=== PATIENT | male | born 1990 | race Caucasian/White ===

== ENCOUNTER 2018-03-10 15:40 | Emergency (ER) | payer OTHER, SELFPAY ==
--- NOTE | 2018-03-10 16:03 | EDPHYS ---
Physician Documentation [facility] Name: Alberto Lynn Age: 28 yrs Sex: Male : 1990 Arrival Date: 03/10/2018 Time: 15:42 Bed 12 Private MD: None, None ED Physician Kayla Mcgregor HPI: 03/10 16:02 This 28 yrs old Male presents to ER via Ambulatory with complaints of pm1 Toothache. 16:02 The patient presents with pain. The problem is located in the lower right third molar. pm1 Onset: The symptoms/episode began/occurred this morning. Duration: The symptoms are continuous. Modifying factors: The symptoms are alleviated by nothing, the symptoms are aggravated by food. Associated signs and symptoms: Pertinent negatives: chills, dysphagia, fever, inability to eat, redness in area, swelling, vomiting. Severity of symptoms: in the emergency department the symptoms are actually worse. The patient has experienced similar episodes in the past, chronically, onset for the past 1.5 years but pain onset today. The patient has not recently seen a physician. Historical: - Allergies: 15:53 No Known Allergies; tw2 - Home Meds: 15:53 None [Active]; tw2 - PMHx: 15:53 None; tw2 - PSHx: 15:53 None; tw2 - Immunization history:: Adult Immunizations. - Social history:: Smoking status: Patient uses tobacco products, smokes one-half pack cigarettes per day, Patient uses street drugs, marijuana, "probably a week ago". - Ebola Screening: : Patient denies travel to an Ebola-affected area in the 21 days before illness onset. ROS: 16:02 Constitutional: Negative for fever, chills, and weight loss, Eyes: Negative for injury, pm1 pain, redness, and discharge. 16:02 Neck: Negative for injury, pain, and swelling, Cardiovascular: Negative for chest pain, palpitations, and edema, Respiratory: Negative for shortness of breath, cough, wheezing, and pleuritic chest pain, Abdomen/GI: Negative for abdominal pain, nausea, vomiting, diarrhea, and constipation, Back: Negative for injury and pain, : Negative for injury, bleeding, discharge, and swelling, MS/Extremity: Negative for injury and deformity, Skin: Negative for injury, rash, and discoloration, Neuro: Negative for headache, weakness, numbness, tingling, and seizure. 16:02 ENT: Positive for dental pain, Negative for ear pain, sore throat, difficulty swallowing, difficulty handling secretions, hoarseness. Exam: 16:02 Constitutional: This is a well developed, well nourished patient who is awake, alert, pm1 and in no acute distress. Head/Face: Normocephalic, atraumatic. Eyes: Pupils equal round and reactive to light, extra-ocular motions intact. Lids and lashes normal. Conjunctiva and sclera are non-icteric and not injected. Cornea within normal limits. Periorbital areas with no swelling, redness, or edema. 16:02 Neck: Trachea midline, no thyromegaly or masses palpated, and no cervical lymphadenopathy. Supple, full range of motion without nuchal rigidity, or vertebral point tenderness. No Meningismus. Chest/axilla: Normal chest wall appearance and motion. Nontender with no deformity. No lesions are appreciated. Cardiovascular: Regular rate and rhythm with a normal S1 and S2. No gallops, murmurs, or rubs. Normal PMI, no JVD. No pulse deficits. Respiratory: Lungs have equal breath sounds bilaterally, clear to auscultation and percussion. No rales, rhonchi or wheezes noted. No increased work of breathing, no retractions or nasal flaring. Abdomen/GI: Soft, non-tender, with normal bowel sounds. No distension or tympany. No guarding or rebound. No evidence of tenderness throughout. Back: No spinal tenderness. No costovertebral tenderness. Full range of motion. Skin: Warm, dry with normal turgor. Normal color with no rashes, no lesions, and no evidence of cellulitis. MS/ Extremity: Pulses equal, no cyanosis. Neurovascular intact. Full, normal range of motion. 16:02 ENT: External ear(s): are unremarkable, Ear canal(s): are normal, TM's: are normal, Nose: is normal, Mouth: is normal, no abscess, no drooling, (-) tongue elevation (-) trismus no ulcerations, no gum abnomalities, no lip abnormalities, no mucosal abnormalities, no tongue abnormalities, Posterior pharynx: is normal, airway is patent, no erythema, no exudate, no peritonsilar mass, no pooling of secretions, no swelling, normal tonsil apperance, normal sized tonsils, normal uvula appearance, normal uvula size, pooling of secretions, is not appreciated, Dental exam: dental caries, that is moderate, diffusely. 16:02 Neuro: Orientation: is normal, Motor: is normal, moves all fours, Gait: is steady, at a normal pace, without difficulty. Vital Signs: 15:53 BP 129 / 63; Pulse 82; Resp 18; Temp 97.3(TE); Pulse Ox 100% on R/A; Weight 98.88 kg tw2 (R); Height 5 ft. 11 in. (180.34 cm); Pain 10/10; 15:53 Body Mass Index 30.40 (98.88 kg, 180.34 cm) tw2 MDM: 15:58 Patient medically screened. pm1 16:02 Data reviewed: vital signs. Data interpreted: Pulse oximetry: on room air is 100 %. pm1 Interpretation: normal. Counseling: I had a detailed discussion with the patient and/or guardian regarding: the historical points, exam findings, and any diagnostic results supporting the discharge/admit diagnosis, the need for outpatient follow up, to return to the emergency department if symptoms worsen or persist or if there are any questions or concerns that arise at home. Administered Medications: 16:11 Drug: TORadol 60 mg Route: IM; Site: right gluteus; aa5 16:23 Follow up: Response: No adverse reaction; Pain is decreased tw2 Disposition: 18:24 Co-signature as Attending Physician, Kayla Mcgregor MD. I agree with the assessment ma2 and plan of care. Disposition: 03/10/18 16:02 Discharged to Home. Impression: Dental pain. - Condition is Stable. - Discharge Instructions: Dental Caries, Adult, Dental Pain. - Prescriptions for Amoxicillin 500 mg Oral Capsule - take 1 capsule by ORAL route every 8 hours for 10 days; 30 tablet. Tramadol 50 mg Oral Tablet - take 1 tablet by ORAL route every 8 hours as needed; 12 tablet. - Medication Reconciliation Form, Thank You Letter, Antibiotic Education, Prescription Opioid Use, Work release form form. - Follow up: Emergency Department; When: As needed; Reason: Worsening of condition. Follow up: Private Physician; When: 2 - 3 days; Reason: Recheck today's complaints, Continuance of care, Re-evaluation by your physician. - Problem is new. - Symptoms have improved. Signatures: Francheska Cohen, RN RN aa5 Enrique Winters NP INSPECTOR [employer]ISSIONS pm1 Grisel Calixto RN RN tw2 Kayla Mcgregor MD MD ma2 Corrections: (The following items were deleted from the chart) 16:23 16:02 03/10/2018 16:02 Discharged to Home. Impression: Dental pain. Condition is tw2 Stable. Forms are Work release form, Medication Reconciliation Form, Thank You Letter, Antibiotic Education, Prescription Opioid Use. Follow up: Emergency Department; When: As needed; Reason: Worsening of condition. Follow up: Private Physician; When: 2 - 3 days; Reason: Recheck today's complaints, Continuance of care, Re-evaluation by your physician. Problem is new. Symptoms have improved. pm1
--- NOTE | 2018-03-10 16:03 | ER ---
Nurse's Notes [facility] Name: Alberto Lynn Age: 28 yrs Sex: Male : 1990 Arrival Date: 03/10/2018 Time: 15:42 Bed 12 Private MD: None, None Diagnosis: Dental pain Presentation: 03/10 15:52 Presenting complaint: Patient states: my tooth has been hurting for half a year, it tw2 just got worse, lower right back tooth. Transition of care: patient was not received from another setting of care. Onset of symptoms was March 10, 2018. Risk Assessment: Do you want to hurt yourself or someone else? Patient reports no desire to harm self or others. Initial Sepsis Screen: Does the patient meet any 2 criteria? No. Patient's initial sepsis screen is negative. Does the patient have a suspected source of infection? No. Patient's initial sepsis screen is negative. Care prior to arrival: None. 15:52 Method Of Arrival: Ambulatory tw2 15:52 Acuity: ZAHIDA 4 tw2 Triage Assessment: 15:54 General: Appears in no apparent distress. Behavior is calm, cooperative, appropriate tw2 for age. Pain: Complains of pain in lower right third molar. EENT: Reports pain in lower right third molar. Historical: - Allergies: 15:53 No Known Allergies; tw2 - Home Meds: 15:53 None [Active]; tw2 - PMHx: 15:53 None; tw2 - PSHx: 15:53 None; tw2 - Immunization history:: Adult Immunizations. - Social history:: Smoking status: Patient uses tobacco products, smokes one-half pack cigarettes per day, Patient uses street drugs, marijuana, "probably a week ago". - Ebola Screening: : Patient denies travel to an Ebola-affected area in the 21 days before illness onset. Screenin:58 Abuse screen: Denies threats or abuse. Nutritional screening: No deficits noted. tw2 Tuberculosis screening: No symptoms or risk factors identified. Fall Risk None identified. Assessment: 15:57 General: Appears in no apparent distress. Behavior is calm, cooperative, appropriate tw2 for age. Pain: Complains of pain in mouth and lower right third molar. Neuro: Level of Consciousness is awake, alert, obeys commands, Oriented to person, place, time, situation. Cardiovascular: Capillary refill < 3 seconds Patient's skin is warm and dry. Respiratory: Airway is patent Respiratory effort is even, unlabored, Respiratory pattern is regular, symmetrical. GI: No signs and/or symptoms were reported involving the gastrointestinal system. : No signs and/or symptoms were reported regarding the genitourinary system. EENT: Reports pain since "for a while, i just havent had a chance to get it taken care of, its expensive, and now its broke off and you can see the gum through the tooth". Musculoskeletal: Range of motion: intact in all extremities. 16:23 Reassessment: Patient appears in no apparent distress at this time. Patient and/or tw2 family updated on plan of care and expected duration. Pain level reassessed. Patient is alert, oriented x 3, equal unlabored respirations, skin warm/dry/pink. Patient states feeling better. Vital Signs: 15:53 BP 129 / 63; Pulse 82; Resp 18; Temp 97.3(TE); Pulse Ox 100% on R/A; Weight 98.88 kg tw2 (R); Height 5 ft. 11 in. (180.34 cm); Pain 10/10; 15:53 Body Mass Index 30.40 (98.88 kg, 180.34 cm) tw2 ED Course: 15:42 Patient arrived in ED. dl4 15:43 None, None is Private Physician. dl4 15:53 Triage completed. tw2 15:53 Arm band placed on. tw2 15:57 Enrique Winters NP is PHCP. pm1 15:57 Kayla Mcgregor MD is Attending Physician. pm1 15:58 Bed in low position. Call light in reach. tw2 16:23 No provider procedures requiring assistance completed. Patient did not have IV access tw2 during this emergency room visit. Administered Medications: 16:11 Drug: TORadol 60 mg Route: IM; Site: right gluteus; aa5 16:23 Follow up: Response: No adverse reaction; Pain is decreased tw2 Outcome: 16:02 Discharge ordered by . pm1 16:23 Discharged to home ambulatory. tw2 16:23 Condition: stable 16:23 Discharge instructions given to patient, Instructed on discharge instructions, follow up and referral plans. no drinking with medication, no driving heavy equipment, medication usage, Demonstrated understanding of instructions, follow-up care, medications, Prescriptions given X 2. 16:23 Patient left the ED. tw2 Signatures: Francheska Cohen, RN RN aa5 Enrique Winters NP PLUMBING MECHANIC pm1 Grisel Calixto RN RN tw2 Arpit Monroe dl4 Corrections: (The following items were deleted from the chart) 16:51 15:56 Francheska Cohen RN is Primary Nurse. aa5 aa5
[2018-03-10] MEDS ORDERED: KETOROLAC 30 MG/ML INJ ONE (16:19)
== END 2018-03-10 16:23 | disposition home or self-care (01) ==
LOC: ER 15:40
DX: K08.89 Other specified disorders of teeth and supporting structures (principal); F17.210 Nicotine dependence, cigarettes, uncomplicated
CPT/HCPCS: 96372; 99283

== ENCOUNTER 2020-05-25 13:22 | Emergency (ER) | payer SELFPAY ==
[2020-05-25] MEDS ORDERED: LORAZEPAM 1 MG TABLET ONE (14:16)
[2020-05-25 14:39] LABS: Absolute Lymphocytes (CBC) 1.3 K/uL (0.7-4.9); Basophils % 0.4 % (0-1.3); Hematocrit 48.9 % (39.6-49.0); MPV 10.3 fL (7.6-11.3); RBC Red Blood Cell Count 5.38 M/uL (4.33-5.43)
[2020-05-25 14:54] LABS: BUN Blood Urea Nitrogen 19 mg/dL (7-18); Bicarbonate 27 mmol/L (21-32); Glucose Level 85 mg/dL (74-106); Sodium Level 140 mmol/L (136-145)
[2020-05-25 15:10] LABS: Potassium 3.9 mmol/L (3.5-5.1)
--- NOTE | 2020-05-25 15:15 | ER ---
Nurse's Notes [facility] Name: Alberto Lynn Age: 30 yrs Sex: Male : 1990 Arrival Date: 05/25/2020 Time: 13:30 Bed 26 Private MD: Diagnosis: Myalgia;Muscle spasm Presentation: 05/25 13:31 Chief complaint: Patient states: "feels like my body is tense. I just got out of shelter a ss month ago and just want to get checked out." Pt reports that this tense feeling he is having began 2 weeks ago. Coronavirus screen: Client denies travel out of the [place] in the last 14 days. Ebola Screen: Patient denies exposure to infectious person. Patient denies travel to an Ebola-affected area in the 21 days before illness onset. Initial Sepsis Screen: Does the patient meet any 2 criteria? No. Patient's initial sepsis screen is negative. Does the patient have a suspected source of infection? No. Patient's initial sepsis screen is negative. Risk Assessment: Do you want to hurt yourself or someone else? Patient reports no desire to harm self or others. Onset of symptoms was May 11, 2020. 13:31 Method Of Arrival: Ambulatory ss 13:31 Acuity: ZAHIDA 3 ss Historical: - Allergies: 13:34 No Known Allergies; ss - Home Meds: 13:34 None [Active]; ss - PMHx: 13:34 None; ss - PSHx: 13:34 None; ss - Immunization history:: Adult Immunizations up to date. - Social history:: Smoking status: Patient denies any tobacco usage or history of. Screenin:31 Abuse screen: Denies threats or abuse. Denies injuries from another. Nutritional ss screening: No deficits noted. Tuberculosis screening: Never had TB. Fall Risk None identified. Assessment: 13:31 General: Appears in no apparent distress. comfortable, Behavior is calm, cooperative. ss Pain: Complains of pain in back of neck Pain currently is 10 out of 10 on a pain scale. at worst was 10 out of 10 on a pain scale. Quality of pain is described as "tense feeling" Pain began 2 weeks ago Is continuous. Neuro: Level of Consciousness is awake, alert, obeys commands, Oriented to person, place, time, situation. Cardiovascular: Capillary refill < 3 seconds is brisk in bilateral fingers Patient's skin is warm and dry. Chest pain is denied. Respiratory: Airway is patent Trachea midline Respiratory effort is even, unlabored, Respiratory pattern is regular, symmetrical. GI: Patient currently denies abdominal pain, diarrhea, nausea, vomiting. : Denies burning with urination, urinary frequency. EENT: Nares are clear Oral mucosa is moist. Derm: Skin is intact, is healthy with good turgor, Skin is dry, Skin is pink, warm \\T\\ dry. normal. Musculoskeletal: Circulation, motion, and sensation intact. Range of motion: intact in all extremities, Swelling absent. 14:30 Reassessment: Patient appears in no apparent distress at this time. Patient and/or ss family updated on plan of care and expected duration. Pain level reassessed. Patient is alert, oriented x 3, equal unlabored respirations, skin warm/dry/pink. Vital Signs: 13:31 BP 132 / 76; Pulse 90; Resp 16; Temp 98.2(TE); Pulse Ox 99% on R/A; Weight 97.52 kg; ss Height 5 ft. 11 in. (180.34 cm); Pain 10/10; 15:15 BP 114 / 67; Pulse 84; Resp 18; Temp 98.0; Pulse Ox 98% on R/A; ss 13:31 Body Mass Index 29.99 (97.52 kg, 180.34 cm) ED Course: 13:30 Patient arrived in ED. ss 13:31 Patient has correct armband on for positive identification. Bed in low position. Call ss light in reach. 13:31 Initial lab(s) drawn, by ED staff, sent to lab. Patient maintains SpO2 saturation ss greater than 95% on room air. 13:33 Triage completed. ss 13:33 Kristy Dumont FNP-C is PHCP. kb 13:33 Sterling Parker MD is Attending Physician. kb 13:34 Arm band placed on right wrist. ss 13:49 Shannon Hairston, YI is Primary Nurse. ss 15:26 No provider procedures requiring assistance completed. Patient did not have IV access ss during this emergency room visit. Administered Medications: 13:44 CANCELLED (Duplicate Order): Ativan (LORazepam) 1 mg IVP once kb 14:04 Drug: Ativan (LORazepam) 1 mg Route: PO; ss 15:25 Follow up: Response: No adverse reaction; No change in condition ss 15:25 Drug: Flexeril (cyclobenzaprine) 10 mg Route: PO; ss 15:26 Follow up: Response: Medication administered at discharge. ss 15:25 Drug: Ibuprofen 800 mg Route: PO; ss 15:26 Follow up: Response: Medication administered at discharge. ss Outcome: 15:14 Discharge ordered by . kb 15:26 Discharged to home ambulatory. ss 15:26 Condition: good 15:26 Discharge instructions given to patient, Instructed on discharge instructions, follow up and referral plans. Demonstrated understanding of instructions, follow-up care, Prescriptions given X 1. 15:27 Patient left the ED. ss Signatures: Kristy Dumont, TRACEY-C TRACEY-Shannon Marquez, RN RN ss Corrections: (The following items were deleted from the chart) 15:27 15:26 Discharge instructions given to patient, Instructed on discharge instructions, ss follow up and referral plans. Demonstrated understanding of instructions, follow-up care, ss
--- NOTE | 2020-05-25 15:15 | EDPHYS ---
Physician Documentation [facility] Name: Alberto Lynn Age: 30 yrs Sex: Male : 1990 Arrival Date: 05/25/2020 Time: 13:30 Bed 26 Private MD: ED Physician Sterling Parker HPI: 05/25 15:22 This 30 yrs old Male presents to ER via Ambulatory with complaints of feels kb tense. 15:22 PT reports his body has felt tense for about 2 weeks. Reports muscle cramps as well. kb States he has a history of anxiety, but doesn't take anything for it. No injury or trauma. No fever, chills, cough, other symptoms to suggest illness. Onset: The symptoms/episode began/occurred 2 week(s) ago. Severity of symptoms: At their worst the symptoms were moderate in the emergency department the symptoms are unchanged. The patient has not experienced similar symptoms in the past. The patient has not recently seen a physician. Historical: - Allergies: 13:34 No Known Allergies; ss - Home Meds: 13:34 None [Active]; ss - PMHx: 13:34 None; ss - PSHx: 13:34 None; ss - Immunization history:: Adult Immunizations up to date. - Social history:: Smoking status: Patient denies any tobacco usage or history of. ROS: 15:21 Constitutional: Negative for fever, chills, and weight loss, Cardiovascular: Negative kb for chest pain, palpitations, and edema, Respiratory: Negative for shortness of breath, cough, wheezing, and pleuritic chest pain, Abdomen/GI: Negative for abdominal pain, nausea, vomiting, diarrhea, and constipation, Neuro: Negative for headache, weakness, numbness, tingling, and seizure. 15:21 MS/extremity: Positive for muscle cramps. Exam: 15:21 Constitutional: This is a well developed, well nourished patient who is awake, alert, kb and in no acute distress. Head/Face: Normocephalic, atraumatic. Cardiovascular: Regular rate and rhythm with a normal S1 and S2. No gallops, murmurs, or rubs. No pulse deficits. Respiratory: Respirations even and unlabored. No increased work of breathing, no retractions or nasal flaring. Skin: Warm, dry with normal turgor. Normal color. MS/ Extremity: Pulses equal, no cyanosis. Neurovascular intact. Full, normal range of motion. Neuro: Awake and alert, GCS 15, oriented to person, place, time, and situation. Moves all extremities. Normal gait. Vital Signs: 13:31 BP 132 / 76; Pulse 90; Resp 16; Temp 98.2(TE); Pulse Ox 99% on R/A; Weight 97.52 kg; ss Height 5 ft. 11 in. (180.34 cm); Pain 10/10; 15:15 BP 114 / 67; Pulse 84; Resp 18; Temp 98.0; Pulse Ox 98% on R/A; ss 13:31 Body Mass Index 29.99 (97.52 kg, 180.34 cm) ss MDM: 13:34 Patient medically screened. kb 15:12 Data reviewed: vital signs, nurses notes. Data interpreted: Pulse oximetry: on room air kb is 99 %. Interpretation: normal. Counseling: I had a detailed discussion with the patient and/or guardian regarding: the historical points, exam findings, and any diagnostic results supporting the discharge/admit diagnosis, lab results, the need for outpatient follow up, a family practitioner, to return to the emergency department if symptoms worsen or persist or if there are any questions or concerns that arise at home. 05/25 13:44 Order name: CBC with Diff; Complete Time: 14:49 kb 05/25 13:44 Order name: Basic Metabolic Panel; Complete Time: 15:12 kb Administered Medications: 13:44 CANCELLED (Duplicate Order): Ativan (LORazepam) 1 mg IVP once kb 14:04 Drug: Ativan (LORazepam) 1 mg Route: PO; ss 15:25 Follow up: Response: No adverse reaction; No change in condition ss 15:25 Drug: Flexeril (cyclobenzaprine) 10 mg Route: PO; ss 15:26 Follow up: Response: Medication administered at discharge. ss 15:25 Drug: Ibuprofen 800 mg Route: PO; ss 15:26 Follow up: Response: Medication administered at discharge. Disposition: 05/26 06:56 Co-signature as Attending Physician, Sterling Parker MD I agree with the assessment and kdr plan of care. Disposition: 05/25/20 15:14 Discharged to Home. Impression: Myalgia, Muscle spasm. - Condition is Stable. - Discharge Instructions: Muscle Cramps and Spasms. - Prescriptions for Cyclobenzaprine 10 mg Oral Tablet - take 1 tablet by ORAL route every 8 hours As needed; 21 tablet. - Medication Reconciliation Form, Thank You Letter, Antibiotic Education, Prescription Opioid Use form. - Follow up: Emergency Department; When: As needed; Reason: Worsening of condition. Follow up: Private Physician; When: 2 - 3 days; Reason: Recheck today's complaints, Continuance of care, Re-evaluation by your physician. Signatures: Dispatcher [employer] EDMS Kristy Dumont, JIG BORE OPERATOR-C JIG BORE OPERATOR-Ckb Sterling Parker MD MD kdr Smirch, Shelby, RN RN ss Corrections: (The following items were deleted from the chart) 05/25 13:44 13:44 IV Saline Lock ordered. kb kb 13:44 13:44 Ativan (LORazepam) 1 mg IVP once ordered. kb kb 15:27 15:14 05/25/2020 15:14 Discharged to Home. Impression: Myalgia; Muscle spasm. Condition ss is Stable. Forms are Medication Reconciliation Form, Thank You Letter, Antibiotic Education, Prescription Opioid Use. Follow up: Emergency Department; When: As needed; Reason: Worsening of condition. Follow up: Private Physician; When: 2 - 3 days; Reason: Recheck today's complaints, Continuance of care, Re-evaluation by your physician. kb
[2020-05-25 15:32] VITALS: BP 132/76; TEMP 98.2; O2SAT 99
[2020-05-25] MEDS ORDERED: CYCLOBENZAPRINE 10 MG TAB ONE (15:41)
[2020-05-25] MEDS ORDERED: IBUPROFEN 400 MG TAB ONE (15:42)
== END 2020-05-25 15:27 | disposition home or self-care (01) ==
LOC: ER 13:22
DX: M62.838 Other muscle spasm (principal)
CPT/HCPCS: 36415; 80048; 85025; 99284

== ENCOUNTER 2022-03-18 20:19 | Emergency (ER) | payer SELFPAY ==
[2022-03-18 20:47] LABS: Hematocrit 40.2 % (39.6-49.0); Lymphocytes % 14.5 % (15.3-44.8); MCV 90.1 fL (80-100); MPV 8.9 fL (7.6-11.3); RBC Red Blood Cell Count 4.46 M/uL (4.33-5.43)
[2022-03-18 21:02] LABS: Albumin 3.7 g/dL (3.4-5.0); Bilirubin Total 0.3 mg/dL (0.2-1.0); Potassium 4.2 mmol/L (3.5-5.1); Protein, Total 6.6 g/dL (6.4-8.2)
[2022-03-18 21:08] LABS: Urine Blood Negative (Negative); Urine Glucose Negative (Negative); Urine Protein Negative (Negative); Urine Specific Gravity <=1.005 (1.005-1.030)
--- NOTE | 2022-03-18 22:17 | EDPHYS ---
Physician Documentation [facility] Name: Alberto Lynn Age: 32 yrs Sex: Male : 1990 Arrival Date: 03/18/2022 Time: 20:21 Bed 11 Private MD: ED Physician Curtis Caban HPI: 03/18 22:41 This 32 yrs old Male presents to ER via EMS with complaints of weakness, dizziness. kb 22:41 The patient presents with dizziness, generalized weakness. Onset: The symptoms/episode kb began/occurred 1 year(s) ago, and became worse 1 week(s) ago. Context: occurred while the patient was walking. Modifying factors: The symptoms are alleviated by nothing, the symptoms are aggravated by nothing. Associated signs and symptoms: The patient has no apparent associated signs or symptoms. Severity of symptoms: At their worst the symptoms were moderate in the emergency department the symptoms are unchanged. Patient's baseline: Neuro: alert and fully oriented, Motor: no deficits, Ambulation: walks without assistance, Speech: normal. The patient has not experienced similar symptoms in the past. The patient has not recently seen a physician. Pt reports weakness and dizziness for a year that has been worse this week. EMS reports BGL in the 40s upon their arrival to pt, was given oral glucose in route. . Historical: - Allergies: 20:25 No Known Allergies; as6 - Home Meds: 20:25 None [Active]; as6 - PMHx: 20:25 None; as6 - PSHx: 20:25 None; as6 - Immunization history:: Client reports having NOT received the Covid vaccine. Flu vaccine is not up to date. - Social history:: Smoking status: Patient reports the use of cigarette tobacco products, smokes one-half pack cigarettes per day. ROS: 22:41 Constitutional: Negative for fever, chills, and weight loss. kb 22:41 Neuro: Positive for dizziness, weakness. 22:41 All other systems are negative. Exam: 22:41 Constitutional: This is a well developed, well nourished patient who is awake, alert, kb and in no acute distress. Head/Face: Normocephalic, atraumatic. Eyes: Pupils equal round and reactive to light, extra-ocular motions intact. Lids and lashes normal. Conjunctiva and sclera are non-icteric and not injected. Cornea within normal limits. Periorbital areas with no swelling, redness, or edema. ENT: Moist Mucous membranes Cardiovascular: Regular rate and rhythm with a normal S1 and S2. No gallops, murmurs, or rubs. No pulse deficits. Respiratory: Respirations even and unlabored. No increased work of breathing. Talking in full sentences Abdomen/GI: Soft, non-tender. No distention Skin: Warm, dry with normal turgor. Normal color. MS/ Extremity: Pulses equal, no cyanosis. Neurovascular intact. Full, normal range of motion. Neuro: Awake and alert, GCS 15, oriented to person, place, time, and situation. Moves all extremities. Normal gait. Vital Signs: 20:24 BP 115 / 65; Pulse 68; Resp 17 S; Temp 98.6(O); Pulse Ox 97% on R/A; Weight 94.35 kg as6 (R); Height 5 ft. 11 in. (180.34 cm) (R); Pain 8/10; 21:08 BP 100 / 47 Supine; Pulse 73; mb9 21:10 BP 106 / 81 Sitting; Pulse 58; mb9 21:13 BP 105 / 73 Standing; Pulse 85; mb9 22:07 BP 110 / 76; Pulse 80; Resp 16; Pulse Ox 100% on R/A; mb9 20:24 Body Mass Index 29.01 (94.35 kg, 180.34 cm) as6 MDM: 20:22 Patient medically screened. kb 22:40 Differential diagnosis: generalized weakness, idiopathic dizziness, near-syncope, kb vertigo, hypoglycemia. Data reviewed: vital signs, nurses notes. Historians other than the Patient: EMS: [facility]. Counseling: I had a detailed discussion with the patient and/or guardian regarding: the historical points, exam findings, and any diagnostic results supporting the discharge/admit diagnosis, lab results, the need for outpatient follow up, a family practitioner, to return to the emergency department if symptoms worsen or persist or if there are any questions or concerns that arise at home. 03/18 20:22 Order name: CBC with Diff kb 03/18 20:22 Order name: CMP kb 03/18 20:37 Order name: Glucose, Ancillary Testing; Complete Time: 20:38 EDMS 03/18 20:52 Order name: CBC with Automated Diff; Complete Time: 20:57 EDMS 03/18 21:02 Order name: Comprehensive Metabolic Panel; Complete Time: 21:08 EDMS 03/18 21:09 Order name: Urine Dipstick-Ancillary; Complete Time: 21:11 EDMS 03/18 20:22 Order name: IV Start; Complete Time: 20:33 kb 03/18 20:22 Order name: Urine Dipstick-Ancillary (obtain specimen); Complete Time: 21:07 kb 03/18 20:22 Order name: Orthostatics; Complete Time: 21:13 kb Administered Medications: No medications were administered Disposition Summary: 03/18/22 22:16 Discharge Ordered Location: Home kb Condition: Stable kb Diagnosis - Weakness kb - Hypoglycemia, unspecified kb Followup: kb - With: Emergency Department - When: As needed - Reason: Worsening of condition Followup: kb - With: Private Physician - When: 2 - 3 days - Reason: Recheck today's complaints, Continuance of care, Re-evaluation by your physician Discharge Instructions: - Discharge Summary Sheet kb - Weakness, [id number] kb - Hypoglycemia, [id number] kb Forms: - Medication Reconciliation Form kb - Thank You Letter kb - Antibiotic Education kb - Prescription Opioid Use kb Signatures: Dispatcher [employer] [facility] Kristy Dumont, MEDICAL COMMUNICATION SPECIALIST-C TRACEY-Percy Calderon, RN RN as6
--- NOTE | 2022-03-18 22:17 | ER ---
Nurse's Notes [facility] Name: Alberto Lynn Age: 32 yrs Sex: Male : 1990 Arrival Date: 03/18/2022 Time: 20:21 Bed 11 Private MD: Diagnosis: Weakness;Hypoglycemia, unspecified Presentation: 03/18 20:25 Chief complaint: EMS states: called out for dizziness and weakness. pt reports that for as6 the past week he has been feeling weak and dizzy off an on but today he was walking and got really dizzy. initial BGL for EMS was 45. they gave oral glucose and it raised to 92. Coronavirus screen: At this time, the client does not indicate any symptoms associated with coronavirus-19. Ebola Screen: No symptoms or risks identified at this time. Initial Sepsis Screen: Does the patient meet any 2 criteria? No. Patient's initial sepsis screen is negative. Does the patient have a suspected source of infection? No. Patient's initial sepsis screen is negative. Risk Assessment: Do you want to hurt yourself or someone else? Patient reports no desire to harm self or others. Onset of symptoms was March 18, 2022. 20:25 Acuity: ZAHIDA 3 as6 20:25 Method Of Arrival: EMS: [facility] as6 Triage Assessment: 20:27 General: Appears in no apparent distress. Behavior is calm, cooperative. Pain: as6 Complains of pain in left leg. Historical: - Allergies: 20:25 No Known Allergies; as6 - Home Meds: 20:25 None [Active]; as6 - PMHx: 20:25 None; as6 - PSHx: 20:25 None; as6 - Immunization history:: Client reports having NOT received the Covid vaccine. Flu vaccine is not up to date. - Social history:: Smoking status: Patient reports the use of cigarette tobacco products, smokes one-half pack cigarettes per day. Screenin:28 [facility] ED Fall Risk Assessment (Adult) Score/Fall Risk Level 0 - 2 = Low Risk. Abuse as6 screen: Denies threats or abuse. Denies injuries from another. Nutritional screening: No deficits noted. Tuberculosis screening: No symptoms or risk factors identified. Assessment: 20:34 General: Appears in no apparent distress. Behavior is calm, cooperative, agitated. mb9 Pain: Complains of pain in left leg. Neuro: Sol Agitation-Sedation Scale (RASS): 0 - Alert and Calm Level of Consciousness is awake, alert, obeys commands, Oriented to person, place, time, situation, Appropriate for age. Cardiovascular: Heart tones S1 S2 present Rhythm is regular. Respiratory: Airway is patent Respiratory effort is even, unlabored, Respiratory pattern is regular, symmetrical, Breath sounds are clear bilaterally. GI: Abdomen is flat, distended, Bowel sounds present X 4 quads. Abd is soft and non tender X 4 quads. Reports intolerance of food, nausea. : No signs and/or symptoms were reported regarding the genitourinary system. EENT: No signs and/or symptoms were reported regarding the EENT system. Derm: Skin is pink, warm \T\ dry. Musculoskeletal: Range of motion: intact in all extremities. 21:45 Reassessment: No changes from previously documented assessment. Patient and/or family mb9 updated on plan of care and expected duration. Pain level reassessed. Patient is alert, oriented x 3, equal unlabored respirations, skin warm/dry/pink. Patient states feeling better. Patient states symptoms have improved. Vital Signs: 20:24 BP 115 / 65; Pulse 68; Resp 17 S; Temp 98.6(O); Pulse Ox 97% on R/A; Weight 94.35 kg as6 (R); Height 5 ft. 11 in. (180.34 cm) (R); Pain 8/10; 21:08 BP 100 / 47 Supine; Pulse 73; mb9 21:10 BP 106 / 81 Sitting; Pulse 58; mb9 21:13 BP 105 / 73 Standing; Pulse 85; mb9 22:07 BP 110 / 76; Pulse 80; Resp 16; Pulse Ox 100% on R/A; mb9 20:24 Body Mass Index 29.01 (94.35 kg, 180.34 cm) as6 ED Course: 20:21 Patient arrived in ED. kb 20:22 Kristy Dumont FNP-C [facility] kb 20:22 Curtis Caban MD is Attending Physician. kb 20:22 Aydee Liang RN is Primary Nurse. mb9 20:24 Arm band placed on. as6 20:27 Triage completed. as6 20:27 Placed in gown. Bed in low position. Call light in reach. Side rails up X2. Client as6 placed on continuous cardiac and pulse oximetry monitoring. NIBP monitoring applied. 20:33 CMP Sent. mb9 20:33 CBC with Diff Sent. mb9 22:07 No provider procedures requiring assistance completed. mb9 22:26 IV discontinued, intact, bleeding controlled, No redness/swelling at site. Pressure mb9 dressing applied. Administered Medications: No medications were administered Medication: 20:28 VIS not applicable for this client. as6 Outcome: 22:16 Discharge ordered by . kb 22:26 Discharged to home ambulatory. mb9 22:26 Condition: stable 22:26 Discharge instructions given to patient, Instructed on discharge instructions, follow up and referral plans. Demonstrated understanding of instructions, follow-up care. 22:27 Patient left the ED. mb9 Signatures: Kristy Dumont, PUMP ERECTOR HELPER-C PUMP ERECTOR HELPER-Percy Calderon, RN RN as6 Aydee Liang RN RN mb9
[2022-03-18 23:21] VITALS: TEMP 98.6
[2022-03-18 23:25] VITALS: BP 110/76; O2SAT 100
== END 2022-03-18 22:27 | disposition home or self-care (01) ==
LOC: ER 20:19
DX: R53.1 Weakness (principal); E16.2 Hypoglycemia, unspecified
CPT/HCPCS: 36415; 80053; 81003; 82947; 85025; 99283

== ENCOUNTER 2022-04-05 11:27 | Emergency (ER) | payer SELFPAY ==
[2022-04-05] MEDS ORDERED: ONDANSETRON 4 MG/2 ML VIAL ONE (11:45)
[2022-04-05] MEDS ORDERED: NA CHLORIDE 0.9% 1,000 ML ONE (11:45)
[2022-04-05 11:57] LABS: Hematocrit 43.2 % (39.6-49.0); Lymphocytes % 20.3 % (15.3-44.8); MCV 89.7 fL (80-100); MPV 8.7 fL (7.6-11.3); RBC Red Blood Cell Count 4.82 M/uL (4.33-5.43)
[2022-04-05 12:14] LABS: Albumin 3.6 g/dL (3.4-5.0); Bilirubin Total 0.4 mg/dL (0.2-1.0); Protein, Total 7.3 g/dL (6.4-8.2)
[2022-04-05 12:20] LABS: Urine Blood Negative (Negative); Urine Glucose Negative (Negative); Urine Protein Negative (Negative); Urine Specific Gravity 1.015 (1.005-1.030)
[2022-04-05 12:32] LABS: SARS-COV-2 RT PCR NEGATIVE (NEGATIVE)
[2022-04-05 12:38] LABS: Barbiturates NEGATIVE (NEGATIVE); Benzodiazepines NEGATIVE (NEGATIVE); Cocaine NEGATIVE (NEGATIVE); METHAMPHETAM NEGATIVE (NEGATIVE); Methadone NEGATIVE (NEGATIVE); Opiates NEGATIVE (NEGATIVE); Phencyclidine NEGATIVE (NEGATIVE); THC Cannibis NEGATIVE (NEGATIVE)
--- NOTE | 2022-04-05 13:11 | EDPHYS ---
Physician Documentation [facility] Name: Alberto Lynn Age: 32 yrs Sex: Male : 1990 Arrival Date: 04/05/2022 Time: 11:31 Bed 20 Private MD: ED Physician Curtis Caban HPI: 04/05 13:07 This 32 yrs old Male presents to ER via EMS with complaints of nausea, vomiting, kb headache, weakness. 13:07 The patient presents to the emergency department with nausea, vomiting. Onset: The kb symptoms/episode began/occurred yesterday. Possible causes: unknown. The symptoms are aggravated by nothing. The symptoms are alleviated by nothing. Associated signs and symptoms: Pertinent positives: nausea, vomiting. Severity of symptoms: At their worst the symptoms were mild moderate in the emergency department the symptoms are unchanged. The patient has not experienced similar symptoms in the past. The patient has not recently seen a physician. Historical: - Allergies: 11:34 No Known Allergies; mb9 - Home Meds: 11:34 Aspirin Oral [Active]; mb9 - PMHx: 11:34 None; mb9 - PSHx: 11:34 None; mb9 - Immunization history:: Adult Immunizations not up to date. - Social history:: Smoking status: Patient reports the use of cigarette tobacco products, smokes one-half pack cigarettes per day. ROS: 13:08 Constitutional: Negative for fever, chills, and weight loss. kb 13:08 Abdomen/GI: Positive for nausea and vomiting, abdominal cramps, Negative for abdominal pain, diarrhea, constipation. 13:08 Neuro: Positive for headache, weakness. 13:08 All other systems are negative. Exam: 13:08 Constitutional: This is a well developed, well nourished patient who is awake, alert, kb and in no acute distress. Head/Face: Normocephalic, atraumatic. ENT: Moist Mucous membranes Cardiovascular: Regular rate and rhythm with a normal S1 and S2. No gallops, murmurs, or rubs. No pulse deficits. Respiratory: Respirations even and unlabored. No increased work of breathing. Talking in full sentences Abdomen/GI: Soft, non-tender. No distention Skin: Warm, dry with normal turgor. Normal color. MS/ Extremity: Pulses equal, no cyanosis. Neurovascular intact. Full, normal range of motion. Neuro: Awake and alert, GCS 15, oriented to person, place, time, and situation. Moves all extremities. Normal gait. Vital Signs: 11:33 BP 116 / 76; Pulse 72; Resp 18; Temp 98.4(O); Pulse Ox 100% on R/A; Weight 92.08 kg; mb9 Height 5 ft. 11 in. (180.34 cm); Pain 0/10; 13:01 BP 111 / 69; Pulse 61; Resp 16; Pulse Ox 99% on R/A; mb9 11:33 Body Mass Index 28.31 (92.08 kg, 180.34 cm) mb9 MDM: 11:31 Patient medically screened. kb 13:08 Differential diagnosis: gastritis, viral gastroenteritis. Data reviewed: vital signs, kb nurses notes. Test considered but Not performed: CT: CT abdomen pelvis considered but patient has no abdominal tenderness, no abdominal pain reported, white blood cell count normal.. Historians other than the Patient: EMS: [facility]. Counseling: I had a detailed discussion with the patient and/or guardian regarding: the historical points, exam findings, and any diagnostic results supporting the discharge/admit diagnosis, lab results, the need for outpatient follow up, a family practitioner, to return to the emergency department if symptoms worsen or persist or if there are any questions or concerns that arise at home. ED course: Patient is a 32-year-old male who presents for nausea, vomiting, weakness and headaches that started at 0 100 yesterday morning. Denies fever or abdominal pain. Normal physical exam, no abdominal tenderness. Serum labs, flu and COVID test, urinalysis and UDS all normal. Patient feeling better after treatment. Educated on plan for outpatient follow-up. Patient in agreement with plan of care. Patient is nontoxic in appearance and tolerating p.o. intake.. 04/05 11:34 Order name: CBC with Diff; Complete Time: 12:09 kb 04/05 11:34 Order name: CMP; Complete Time: 12:17 kb 04/05 11:34 Order name: Lipase; Complete Time: 12:17 kb 04/05 11:34 Order name: UDS; Complete Time: 12:45 kb 04/05 11:34 Order name: COVID-19/FLU A+B; Complete Time: 12:33 kb 04/05 12:20 Order name: Urine Dipstick-Ancillary; Complete Time: 12:30 EDMS 04/05 11:34 Order name: IV Saline Lock; Complete Time: 11:49 kb 04/05 11:34 Order name: Labs collected and sent; Complete Time: 11:49 kb 04/05 11:34 Order name: Urine Dipstick-Ancillary (obtain specimen); Complete Time: 12:54 kb 04/05 12:49 Order name: PO challenge; Complete Time: 13:06 kb Administered Medications: 11:49 Drug: NS 0.9% 1000 ml Route: IV; Rate: 1 bolus; Site: right wrist; mb9 11:50 Drug: Zofran (Ondansetron) 4 mg Route: IVP; Site: right wrist; mb9 13:06 Follow up: Response: No adverse reaction mb9 Disposition Summary: 04/05/22 13:11 Discharge Ordered Location: Home kb Condition: Stable kb Diagnosis - Nausea with vomiting, unspecified kb Followup: kb - With: Emergency Department - When: As needed - Reason: Worsening of condition Followup: kb - With: Private Physician - When: 2 - 3 days - Reason: Recheck today's complaints, Continuance of care, Re-evaluation by your physician Discharge Instructions: - Discharge Summary Sheet kb - Nausea and Vomiting, Adult, [id number] kb Forms: - Medication Reconciliation Form kb - Thank You Letter kb - Antibiotic Education kb - Prescription Opioid Use kb Prescriptions: - ondansetron 4 mg Oral - take 1 tablet by SUBLINGUAL route every 8 hours As needed; 15 tablet; Refills: kb 0, Product Selection Permitted Signatures: Dispatcher [employer] Kristy Garcia, BRAEDEN DOLANP-Aydee Baker, RN RN mb9
--- NOTE | 2022-04-05 13:11 | ER ---
Nurse's Notes [facility] Name: Alberto Lynn Age: 32 yrs Sex: Male : 1990 Arrival Date: 04/05/2022 Time: 11:31 Bed 20 Private MD: Diagnosis: Nausea with vomiting, unspecified Presentation: 04/05 11:33 Chief complaint: EMS states: "pt complains of N/V and weakness since yesterday. Pt mb9 currently has headache". Coronavirus screen: Vaccine status: Patient reports being unvaccinated. Ebola Screen: No symptoms or risks identified at this time. Initial Sepsis Screen: Does the patient meet any 2 criteria? No. Patient's initial sepsis screen is negative. Does the patient have a suspected source of infection? No. Patient's initial sepsis screen is negative. Risk Assessment: Do you want to hurt yourself or someone else? Patient reports no desire to harm self or others. Onset of symptoms was April 05, 2022. 11:33 Acuity: ZAHIDA 3 mb9 11:33 Method Of Arrival: EMS: [facility] mb9 Triage Assessment: 11:35 General: Appears in no apparent distress. Behavior is calm, cooperative. Pain: mb9 Complains of pain in head Pain currently is 0 out of 10 on a pain scale. Quality of pain is described as aching, Pain began suddenly. EENT: No signs and/or symptoms were reported regarding the EENT system. Neuro: Sol Agitation-Sedation Scale (RASS): 0 - Alert and Calm Level of Consciousness is awake, alert, obeys commands, Oriented to person, place, time, situation, Appropriate for age Reports headache. Cardiovascular: Capillary refill < 3 seconds is brisk Rhythm is regular. Respiratory: Airway is patent Respiratory effort is even, unlabored, Respiratory pattern is regular, symmetrical. GI: Abdomen is flat, non-distended, Bowel sounds present X 4 quads. Abd is soft and non tender X 4 quads. Reports nausea, vomiting, since yesterday. : No signs and/or symptoms were reported regarding the genitourinary system. Derm: Skin is pink, warm \\T\\ dry. Musculoskeletal: Range of motion: intact in all extremities. Historical: - Allergies: 11:34 No Known Allergies; mb9 - Home Meds: 11:34 Aspirin Oral [Active]; mb9 - PMHx: 11:34 None; mb9 - PSHx: 11:34 None; mb9 - Immunization history:: Adult Immunizations not up to date. - Social history:: Smoking status: Patient reports the use of cigarette tobacco products, smokes one-half pack cigarettes per day. Screenin:36 [facility] ED Fall Risk Assessment (Adult) History of falling in the last 3 months, mb9 including since admission No falls in past 3 months (0 pts) Confusion or Disorientation No (0 pts) Intoxicated or Sedated No (0 pts) Impaired Gait No (0 pts) Mobility Assist Device Used No (0 pt) Altered Elimination No (0 pt) Score/Fall Risk Level 0 - 2 = Low Risk Oriented to surroundings, Maintained a safe environment, Educated pt \\T\\ family on fall prevention, incl call for assistance when getting out of bed. Abuse screen: Denies threats or abuse. Nutritional screening: No deficits noted. Tuberculosis screening: No symptoms or risk factors identified. Assessment: 11:36 Reassessment: see triage assessment. mb9 13:06 Reassessment: No changes from previously documented assessment. Patient and/or family mb9 updated on plan of care and expected duration. Pain level reassessed. Patient is alert, oriented x 3, equal unlabored respirations, skin warm/dry/pink. Vital Signs: 11:33 BP 116 / 76; Pulse 72; Resp 18; Temp 98.4(O); Pulse Ox 100% on R/A; Weight 92.08 kg; mb9 Height 5 ft. 11 in. (180.34 cm); Pain 0/10; 13:01 BP 111 / 69; Pulse 61; Resp 16; Pulse Ox 99% on R/A; mb9 11:33 Body Mass Index 28.31 (92.08 kg, 180.34 cm) mb9 ED Course: 11:31 Patient arrived in ED. eb 11:31 Kristy Dumont FNP-C [facility]. kb 11:31 Curtis Caban MD is Attending Physician. kb 11:33 Aydee Liang RN is Primary Nurse. mb9 11:34 Triage completed. mb9 11:34 Arm band placed on. mb9 11:36 Placed in gown. Bed in low position. Call light in reach. Side rails up X 1. Client mb9 placed on continuous cardiac and pulse oximetry monitoring. NIBP monitoring applied. coal inspector on. 11:45 Inserted saline lock: 20 gauge in right wrist, using aseptic technique. mb9 11:49 COVID-19/FLU A+B Sent. mb9 13:22 No provider procedures requiring assistance completed. IV discontinued, intact, mb9 bleeding controlled, No redness/swelling at site. Pressure dressing applied. Administered Medications: 11:49 Drug: NS 0.9% 1000 ml Route: IV; Rate: 1 bolus; Site: right wrist; mb9 11:50 Drug: Zofran (Ondansetron) 4 mg Route: IVP; Site: right wrist; mb9 13:06 Follow up: Response: No adverse reaction mb9 Medication: 11:36 VIS not applicable for this client. mb9 Outcome: 13:11 Discharge ordered by . kb 13:32 Discharged to home ambulatory. mb9 13:32 Condition: stable 13:32 Discharge instructions given to patient, Instructed on discharge instructions, follow up and referral plans. Demonstrated understanding of instructions, follow-up care, medications, Prescriptions given X 1. 13:32 Patient left the ED. mb9 Signatures: Kristy Dumont, SALES REPRESENTATIVE [employer]-C SALES REPRESENTATIVE [employer]-Cleopatra Euceda Mary Beth, RN RN mb9
[2022-04-05 13:41] VITALS: TEMP 98.4
[2022-04-05 13:42] VITALS: BP 111/69; O2SAT 99
== END 2022-04-05 13:32 | disposition home or self-care (01) ==
LOC: ER 11:27
DX: R11.2 Nausea with vomiting, unspecified (principal); Z20.822 Contact with and (suspected) exposure to COVID-19
CPT/HCPCS: 0240U; 36415; 80053; 80307; 81003; 83690; 85025; 96374; 99284; J2405; J7030

== ENCOUNTER 2022-04-05 16:33 | Emergency (ER) | payer SELFPAY ==
[2022-04-05] MEDS ORDERED: ONDANSETRON 4 MG (ODT) TAB ONE (16:41)
--- NOTE | 2022-04-05 17:34 | EDPHYS ---
Physician Documentation [facility] Name: Alberto Lynn Age: 32 yrs Sex: Male : 1990 Arrival Date: 04/05/2022 Time: 16:35 Bed IW3 Private MD: ED Physician Curtis Caban HPI: 04/05 17:33 This 32 yrs old Male presents to ER via EMS with complaints of Nausea. kb 17:33 The patient presents to the emergency department with nausea. Onset: The kb symptoms/episode began/occurred just prior to arrival. Possible causes: unknown. The symptoms are aggravated by nothing. The symptoms are alleviated by nothing. Associated signs and symptoms: Pertinent positives: nausea. Severity of symptoms: At their worst the symptoms were mild in the emergency department the symptoms are unchanged. The patient has not experienced similar symptoms in the past. The patient has been recently seen at the [facility] Emergency Department, today, by me, for similar complaints labs were performed, was given IV fluids, was given a prescription for an antiemetic. Historical: - Allergies: 16:38 No Known Allergies; iw - Home Meds: 16:38 None [Active]; iw - PMHx: 16:38 None; iw - PSHx: 16:38 None; iw ROS: 17:25 Constitutional: Negative for fever, chills, and weight loss. kb 17:25 Abdomen/GI: Positive for nausea, Negative for abdominal pain. 17:25 All other systems are negative. Exam: 17:25 Constitutional: This is a well developed, well nourished patient who is awake, alert, kb and in no acute distress. Head/Face: Normocephalic, atraumatic. ENT: Moist Mucous membranes Cardiovascular: Regular rate and rhythm with a normal S1 and S2. No gallops, murmurs, or rubs. No pulse deficits. Respiratory: Respirations even and unlabored. No increased work of breathing. Talking in full sentences Abdomen/GI: Soft, non-tender. No distention Skin: Warm, dry with normal turgor. Normal color. MS/ Extremity: Pulses equal, no cyanosis. Neurovascular intact. Full, normal range of motion. Neuro: Awake and alert, GCS 15, oriented to person, place, time, and situation. Moves all extremities. Normal gait. Vital Signs: 16:38 BP 152 / 81; Pulse 90; Resp 16; Temp 98.8; Pulse Ox 100% on R/A; Pain 10/10; iw MDM: 16:35 Patient medically screened. kb 17:30 Differential diagnosis: gastritis, viral gastroenteritis. Data reviewed: vital signs, kb nurses notes. Historians other than the Patient: EMS: [facility]. Counseling: I had a detailed discussion with the patient and/or guardian regarding: the historical points, exam findings, and any diagnostic results supporting the discharge/admit diagnosis, the need for outpatient follow up, a family practitioner, to return to the emergency department if symptoms worsen or persist or if there are any questions or concerns that arise at home. ED course: Patient is a 32-year-old male who presents for nausea that started just prior to arrival. Patient was seen earlier today by the for similar complaints, serum labs done and normal, patient was given fluids and Zofran. Patient tolerated po fluids prior to discharge. States he got home and walked over to his neighbor's house got nauseous again so he called 911. Patient has not filled the prescription for Zofran that was written for him. Zofran given p.o. Patient tolerating p.o. intake. Educated to fill prescription and take as needed. Patient continues to deny abdominal pain.. 04/05 16:38 Order name: PO challenge; Complete Time: 17:51 kb Administered Medications: 16:41 Drug: Zofran (Ondansetron) 4 mg Route: PO; iw 17:56 Follow up: Response: Nausea is decreased jl7 Disposition Summary: 04/05/22 17:34 Discharge Ordered Location: Home kb Condition: Stable kb Diagnosis - Nausea kb Followup: kb - With: Emergency Department - When: As needed - Reason: Worsening of condition Followup: kb - With: Private Physician - When: 2 - 3 days - Reason: Recheck today's complaints, Continuance of care, Re-evaluation by your physician Discharge Instructions: - Discharge Summary Sheet kb - Nausea, Adult, [id number] kb Forms: - Medication Reconciliation Form kb - Thank You Letter kb - Antibiotic Education kb - Prescription Opioid Use kb Signatures: Kristy Dumont FNP-C FNP-Roz Whelan RN RN iw Adrien Perez RN jl7
--- NOTE | 2022-04-05 17:34 | ER ---
Nurse's Notes [facility] Name: Alberto Lynn Age: 32 yrs Sex: Male : 1990 Arrival Date: 04/05/2022 Time: 16:35 Bed IW3 Private MD: Diagnosis: Nausea Presentation: 04/05 16:38 Acuity: ZAHIDA 4 iw 16:39 Chief complaint: Patient states: pt was just d/c from ER earlier today, pt was walking iw to neighbor's house and started feeling nausea , then he states he has left leg pain that caused the nausea. Coronavirus screen: At this time, the client does not indicate any symptoms associated with coronavirus-19. Ebola Screen: Patient negative for fever greater than or equal to 101.5 degrees Fahrenheit, and additional compatible Ebola Virus Disease symptoms Patient denies exposure to infectious person. Patient denies travel to an Ebola-affected area in the 21 days before illness onset. No symptoms or risks identified at this time. 16:39 Method Of Arrival: EMS: [facility] iw Historical: - Allergies: 16:38 No Known Allergies; iw - Home Meds: 16:38 None [Active]; iw - PMHx: 16:38 None; iw - PSHx: 16:38 None; iw Screenin:[address] [facility] ED Fall Risk Assessment (Adult) Score/Fall Risk Level 0 - 2 = Low Risk. Abuse iw screen: Denies threats or abuse. Denies injuries from another. Nutritional screening: No deficits noted. Tuberculosis screening: No symptoms or risk factors identified. Assessment: 16:41 General: Appears in no apparent distress. Behavior is calm, cooperative. Pain: iw Complains of pain in left leg. Neuro: Level of Consciousness is awake, alert, obeys commands, Oriented to person, place, time, situation. Cardiovascular: Patient's skin is warm and dry. Respiratory: Respiratory effort is even, unlabored, Respiratory pattern is regular, symmetrical. GI: Abdomen is flat, non-distended, Reports nausea. Derm: Skin is intact, is healthy with good turgor. Musculoskeletal: Range of motion: intact in all extremities. Vital Signs: 16:38 BP 152 / 81; Pulse 90; Resp 16; Temp 98.8; Pulse Ox 100% on R/A; Pain 10/10; iw ED Course: 16:35 Patient arrived in ED. iw 16:35 Kristy Dumont FNP-C [facility]. kb 16:35 Curtis Caban MD is Attending Physician. kb 16:38 Triage completed. iw 16:41 Arm band placed on. iw 16:42 No provider procedures requiring assistance completed. Patient did not have IV access iw during this emergency room visit. 17:58 Patient has correct armband on for positive identification. jl7 Administered Medications: 16:41 Drug: Zofran (Ondansetron) 4 mg Route: PO; iw 17:56 Follow up: Response: Nausea is decreased jl7 Outcome: 17:34 Discharge ordered by . kb 17:58 Discharged to home ambulatory. jl7 17:58 Condition: stable 17:58 Discharge instructions given to patient, Instructed on discharge instructions, follow up and referral plans. Demonstrated understanding of instructions, follow-up care. 17:58 Patient left the ED. jl7 Signatures: Kristy Dumont FNP-C FNP-Roz Whelan, RN YI Adrien Perez RN RN jl7
[2022-04-05 19:08] VITALS: BP 152/81; TEMP 98.8; O2SAT 100
== END 2022-04-05 17:58 | disposition home or self-care (01) ==
LOC: ER 16:33
DX: R11.0 Nausea (principal)
CPT/HCPCS: 99283; Q0162

== ENCOUNTER 2022-04-05 22:39 | Emergency (ER) | payer SELFPAY ==
--- NOTE | 2022-04-05 22:54 | EDPHYS ---
Physician Documentation [facility] Name: Alberto Lynn Age: 32 yrs Sex: Male : 1990 Arrival Date: 04/05/2022 Time: 22:41 Bed 2 Private MD: ED Physician Daniel Mckeon HPI: 04/05 22:46 This 32 yrs old Male presents to ER via EMS with complaints of left leg pain. bs3 22:46 The patient presents with an injury, pain, that is acute, tenderness. The complaints bs3 affect the left quadriceps, left knee and left ag. Context: the patient is not able to bear weight, the patient is able to ambulate, Problem is a result from a previous injury: No. Modifying factors: The symptoms are alleviated by OTC meds, the symptoms are aggravated by. 32yo m seen previosuly for nausea presents with left leg pain, he notes taking aspirin with some relief. Initially stated it was his anterior upper leg, then changed story and said it was his lower leg. Denies numbness, tingling, weakness, denies trauma. No pain in his joints, no rash, no fever, chills, no swelling or anything else bothering him. He notes it was hurting when he was walking and therefore he came in. Denies abdominal pain. . Historical: - Allergies: 22:43 No Known Allergies; kd3 - Immunization history:: Adult Immunizations up to date. - Social history:: Smoking status: Patient reports the use of cigarette tobacco products, denies chronic smoking, but will smoke occasionally. ROS: 22:51 Constitutional: Negative for fever, chills bs3 22:51 All other systems are negative. Exam: 22:51 Constitutional: This is a well developed, well nourished patient who is awake, alert, bs3 and in no acute distress. Head/Face: Normocephalic, atraumatic. Eyes: Pupils equal round and reactive to light, extra-ocular motions intact. Lids and lashes normal. ENT: mmm, no posterior phyarngeal erythema Chest/axilla: Normal chest wall appearance and motion. Nontender with no deformity. No lesions are appreciated. Cardiovascular: Regular rate and rhythm with a normal S1 and S2. symmetric pulses in upper extremities Respiratory: Lungs have equal breath sounds bilaterally, clear to auscultation, no respiratory distress Abdomen/GI: Soft, non-tender, no rebound or guarding Skin: Warm, dry with normal turgor. Normal color with no rashes, no lesions, and no evidence of cellulitis. MS/ Extremity: Pulses equal, no cyanosis. Neurovascular intact. Full, normal range of motion., normal rom of b/l lower extremities, no calf tenderness, no rash, no pain to palpation over the muscles. No weakness. Neuro: Awake and alert, GCS 15, oriented to person, place, time, and situation. Cranial nerves II-XII grossly intact. Motor strength 5/5 in all extremities. Sensory grossly intact. Vital Signs: 22:41 BP 107 / 84; Pulse 77; Resp 19; Temp 98.5(O); Pulse Ox 100% ; Weight 92.08 kg; Height 5 kd3 ft. 11 in. (180.34 cm); 22:41 Body Mass Index 28.31 (92.08 kg, 180.34 cm) kd3 MDM: 22:44 Patient medically screened. bs3 22:51 Differential diagnosis: dislocation, closed fracture, contusion, abrasion, tendonitis, bs3 possible dvt, rhabdo. Data reviewed: vital signs, nurses notes. ED course: considered US for dvt but no calf pain, no swelling or risk factors, considered labs for rhabdo, but no current pain at rest, no changes in urine, no weakness. Doubt compartment syndrome. Likely msk pain, advised nsaid and rest. Administered Medications: 23:03 Drug: Ketorolac 30 mg Route: IM; Site: left deltoid; kd3 23:06 Follow up: Response: No adverse reaction kd3 Disposition Summary: 04/05/22 22:53 Discharge Ordered Location: Home bs3 Problem: new bs3 Symptoms: are resolved bs3 Condition: Stable bs3 Diagnosis - Pain in left leg bs3 Followup: bs3 - With: Private Physician - When: As needed - Reason: Re-evaluation by your physician Discharge Instructions: - Discharge Summary Sheet bs3 - Musculoskeletal Pain bs3 Forms: - Medication Reconciliation Form bs3 - Thank You Letter bs3 - Antibiotic Education bs3 - Prescription Opioid Use bs3 Prescriptions: - Meloxicam - take 7.5 milligram by ORAL route once daily for 7 days; 7 tablet; Refills: 0, bs3 Product Selection Permitted Signatures: Armando, Marcelina, YI RN kd3 Daniel Mcekon MD MD bs3
--- NOTE | 2022-04-05 22:54 | ER ---
Nurse's Notes [facility] Name: Alberto Lynn Age: 32 yrs Sex: Male : 1990 Arrival Date: 04/05/2022 Time: 22:41 Bed 2 Private MD: Diagnosis: Pain in left leg Presentation: 04/05 22:41 Chief complaint: EMS states: He is complaining of left leg pain that starts in the calf kd3 and radiates up the leg to the thigh. Pt states that it could be an old injury that is actin up and getting worse because he did not recently injure it. Coronavirus screen: Vaccine status: Patient reports being unvaccinated. Ebola Screen: No symptoms or risks identified at this time. Initial Sepsis Screen: Does the patient meet any 2 criteria? No. Patient's initial sepsis screen is negative. Does the patient have a suspected source of infection? No. Patient's initial sepsis screen is negative. Risk Assessment: Do you want to hurt yourself or someone else? Patient reports no desire to harm self or others. Onset of symptoms was April 05, 2022. 22:41 Method Of Arrival: EMS: [facility] kd3 22:41 Acuity: ZAHIDA 4 kd3 Triage Assessment: 22:43 General: Appears in no apparent distress. Behavior is calm, cooperative. Pain: kd3 Complains of pain in left leg. Neuro: Level of Consciousness is awake, alert, obeys commands, Oriented to person, place, time, situation. Historical: - Allergies: 22:43 No Known Allergies; kd3 - Immunization history:: Adult Immunizations up to date. - Social history:: Smoking status: Patient reports the use of cigarette tobacco products, denies chronic smoking, but will smoke occasionally. Screenin:45 [facility] ED Fall Risk Assessment (Adult) History of falling in the last 3 months, kd3 including since admission No falls in past 3 months (0 pts) Confusion or Disorientation No (0 pts) Intoxicated or Sedated No (0 pts) Impaired Gait No (0 pts) Mobility Assist Device Used No (0 pt) Altered Elimination No (0 pt) Score/Fall Risk Level 0 - 2 = Low Risk Maintained a safe environment. Abuse screen: Denies threats or abuse. Denies injuries from another. Nutritional screening: No deficits noted. Tuberculosis screening: No symptoms or risk factors identified. Vital Signs: 22:41 BP 107 / 84; Pulse 77; Resp 19; Temp 98.5(O); Pulse Ox 100% ; Weight 92.08 kg; Height 5 kd3 ft. 11 in. (180.34 cm); 22:41 Body Mass Index 28.31 (92.08 kg, 180.34 cm) kd3 ED Course: 22:41 Patient arrived in ED. kd3 22:43 Triage completed. kd3 22:43 Arm band placed on right wrist. EKG completed in triage. Results shown to MD. kd3 22:44 Daniel Mckeon MD is Attending Physician. bs3 22:45 Patient has correct armband on for positive identification. kd3 23:00 Marcelina Roberts RN is Primary Nurse. kd3 Administered Medications: 23:03 Drug: Ketorolac 30 mg Route: IM; Site: left deltoid; kd3 23:06 Follow up: Response: No adverse reaction kd3 Medication: 22:45 VIS not applicable for this client. kd3 Outcome: 22:53 Discharge ordered by . bs3 23:06 Patient left the ED. kd3 Signatures: Marcelina Roberts RN RN kd3 Daniel Mckeon MD MD bs3
[2022-04-05] MEDS ORDERED: KETOROLAC 30 MG/ML INJ ONE (23:06)
== END 2022-04-05 23:06 | disposition home or self-care (01) ==
LOC: ER 22:39
DX: M79.605 Pain in left leg (principal); F17.210 Nicotine dependence, cigarettes, uncomplicated
CPT/HCPCS: 96372; 99283

== ENCOUNTER 2022-04-06 11:04 | Emergency (ER) | payer SELFPAY ==
[2022-04-06] MEDS ORDERED: PROMETHAZINE 25 MG TABLET ONE (11:21)
--- NOTE | 2022-04-06 11:31 | EDPHYS ---
Physician Documentation [facility] Name: Alberto Lynn Age: 32 yrs Sex: Male : 1990 Arrival Date: 04/06/2022 Time: 11:06 Bed 20 Private MD: ED Physician Curtis Caban HPI: 04/06 11:58 This 32 yrs old Male presents to ER via EMS with complaints of Nausea. kb 11:58 The patient presents to the emergency department with nausea. Onset: The kb symptoms/episode began/occurred 3 day(s) ago. Possible causes: unknown. The symptoms are aggravated by nothing. The symptoms are alleviated by nothing. Associated signs and symptoms: Pertinent positives: nausea. Severity of symptoms: At their worst the symptoms were mild moderate in the emergency department the symptoms are unchanged. The patient has not experienced similar symptoms in the past. The patient has been recently seen at the [facility] Emergency Department, yesterday, for similar complaints labs were performed. Historical: - Allergies: 11:10 No Known Allergies; hb - Home Meds: 11:10 None [Active]; hb - PMHx: 11:10 None; hb - PSHx: 11:10 None; hb - Immunization history:: Adult Immunizations up to date. - Social history:: Smoking status: Patient denies any tobacco usage or history of. ROS: 11:57 Constitutional: Negative for fever, chills, and weight loss. kb 11:57 Abdomen/GI: Positive for nausea, Negative for abdominal pain, vomiting, diarrhea. 11:57 All other systems are negative. Exam: 11:57 Constitutional: This is a well developed, well nourished patient who is awake, alert, kb and in no acute distress. Head/Face: Normocephalic, atraumatic. ENT: Moist Mucous membranes Cardiovascular: Regular rate and rhythm with a normal S1 and S2. No gallops, murmurs, or rubs. No pulse deficits. Respiratory: Respirations even and unlabored. No increased work of breathing. Talking in full sentences Abdomen/GI: Soft, non-tender. No distention Skin: Warm, dry with normal turgor. Normal color. MS/ Extremity: Pulses equal, no cyanosis. Neurovascular intact. Full, normal range of motion. Neuro: Awake and alert, GCS 15, oriented to person, place, time, and situation. Moves all extremities. Normal gait. Vital Signs: 11:08 BP 130 / 79; Pulse 75; Resp 16; Temp 98.1; Pulse Ox 100% ; Weight 86.18 kg; Height 5 hb ft. 11 in. (180.34 cm); Pain 3/10; 11:08 Body Mass Index 26.50 (86.18 kg, 180.34 cm) hb MDM: 11:08 Patient medically screened. [facility] 11:58 Data reviewed: vital signs, nurses notes. 11:58 Differential diagnosis: gastritis, viral gastroenteritis. Historians other than the kb Patient: EMS: [facility]. Care significantly affected by the following Social Determinants of Health: Inadequate housing. Counseling: I had a detailed discussion with the patient and/or guardian regarding: the historical points, exam findings, and any diagnostic results supporting the discharge/admit diagnosis, the need for outpatient follow up, a family practitioner, to return to the emergency department if symptoms worsen or persist or if there are any questions or concerns that arise at home. ED course: Patient is a 32-year-old male with no medical history who presents for nausea that started 3 days ago. Patient was seen by me twice yesterday for similar complaints. First visit he had nausea and vomiting, serum labs done and were within normal limits, patient was discharged with Zofran. Second visit patient complained of nausea only, no vomiting. Patient was given Zofran in the ER and was tolerating p.o. intake so he was discharged. Patient was seen a third time yesterday by another provider for leg pain that he reports has been ongoing for a year. Today patient reports that he still has nausea, has not filled the prescription for Zofran but came in because he wanted to be admitted so that he had a bed to sleep in. Patient reports he is unable to return to his home and has nowhere to go. Physical exam within normal limits, no abdominal tenderness, respirations even and unlabored. Patient tolerating p.o. intake. After discussion with patient he states he could call his brother who he believes would allow him to stay with him. . 04/06 11:19 Order name: PO challenge; Complete Time: 11:20 kb Administered Medications: 11:20 Drug: Phenergan (promethazine) 25 mg Route: PO; hb Disposition Summary: 04/06/22 11:30 Discharge Ordered Location: Home kb Condition: Stable kb Diagnosis - Nausea kb Followup: kb - With: Emergency Department - When: As needed - Reason: Worsening of condition Followup: kb - With: Private Physician - When: 2 - 3 days - Reason: Recheck today's complaints, Continuance of care, Re-evaluation by your physician Discharge Instructions: - Discharge Summary Sheet kb - Nausea, Adult, [id number] kb Forms: - Medication Reconciliation Form kb - Thank You Letter kb - Antibiotic Education kb - Prescription Opioid Use kb Signatures: Kristy Dumont, FISH SKINNING MACHINE FEEDER-C FISH SKINNING MACHINE FEEDER-Curtis Gonzalez MD MD cha Baxter, Heather, RN RN hb
--- NOTE | 2022-04-06 11:31 | ER ---
Nurse's Notes [facility] Name: Alberto Lynn Age: 32 yrs Sex: Male : 1990 Arrival Date: 04/06/2022 Time: 11:06 Bed 20 Private MD: Diagnosis: Nausea Presentation: 04/06 11:08 Chief complaint: EMS states: Nausea x 2 days. Denies abdominal pain/diarrhea. Also c/o hb left leg pain, denies injury. VS WNL. Coronavirus screen: Client presents with at least one sign or symptom that may indicate coronavirus-19. Provider contacted for isolation considerations. Ebola Screen: No symptoms or risks identified at this time. Initial Sepsis Screen: Does the patient meet any 2 criteria? No. Patient's initial sepsis screen is negative. Does the patient have a suspected source of infection? No. Patient's initial sepsis screen is negative. Risk Assessment: Do you want to hurt yourself or someone else? Patient reports no desire to harm self or others. Onset of symptoms was April 05, 2022. 11:08 Method Of Arrival: EMS: [facility] 11:08 Acuity: ZAHIDA 3 hb Triage Assessment: 11:10 General: Appears in no apparent distress. Behavior is calm, cooperative. Pain: Pain hb currently is 3 out of 10 on a pain scale. Neuro: Level of Consciousness is awake, alert, obeys commands, Oriented to person, place, time, situation. Cardiovascular: Patient's skin is warm and dry. Respiratory: Respiratory effort is even, unlabored, Respiratory pattern is regular, symmetrical. GI: Reports nausea. Musculoskeletal: Reports left leg pain. Historical: - Allergies: 11:10 No Known Allergies; hb - Home Meds: 11:10 None [Active]; hb - PMHx: 11:10 None; hb - PSHx: 11:10 None; hb - Immunization history:: Adult Immunizations up to date. - Social history:: Smoking status: Patient denies any tobacco usage or history of. Screenin:11 [facility] ED Fall Risk Assessment (Adult) Score/Fall Risk Level 0 - 2 = Low Risk hb Oriented to surroundings, Maintained a safe environment. Abuse screen: Denies threats or abuse. Denies injuries from another. Nutritional screening: No deficits noted. Tuberculosis screening: No symptoms or risk factors identified. Assessment: 11:10 General: SEE TRIAGE ASSESSMENT . hb 11:21 Reassessment: Water provided for PO challenge. hb Vital Signs: 11:08 BP 130 / 79; Pulse 75; Resp 16; Temp 98.1; Pulse Ox 100% ; Weight 86.18 kg; Height 5 hb ft. 11 in. (180.34 cm); Pain 3/10; 11:08 Body Mass Index 26.50 (86.18 kg, 180.34 cm) hb ED Course: 11:06 Patient arrived in ED. eb 11:07 Emerald Purcell, RN is Primary Nurse. hb 11:08 Curtis Caban MD is Attending Physician. [facility] 11:09 Kristy Dumont FNP-C is [facility]. kb 11:09 Triage completed. hb 11:10 Arm band placed on. hb 11:11 Patient has correct armband on for positive identification. hb 12:08 No provider procedures requiring assistance completed. Patient did not have IV access hb during this emergency room visit. Administered Medications: 11:20 Drug: Phenergan (promethazine) 25 mg Route: PO; hb Medication: 11:11 VIS not applicable for this client. hb Outcome: 11:30 Discharge ordered by . kb 12:08 Discharged to home ambulatory. hb 12:08 Condition: stable 12:08 Discharge instructions given to patient, Instructed on discharge instructions, follow up and referral plans. medication usage, Demonstrated understanding of instructions, follow-up care, medications. 12:09 Patient left the ED. hb Signatures: Kristy Dumont FNP-C FNP-Luisb Curtis Caban MD MD cha Baxter, Heather, RN RN Cleopatra Pompa
[2022-04-06 12:15] VITALS: BP 130/79; TEMP 98.1; O2SAT 100
== END 2022-04-06 12:09 | disposition home or self-care (01) ==
LOC: ER 11:04
DX: R11.0 Nausea (principal)
CPT/HCPCS: 99283; Q0169

== ENCOUNTER 2022-04-10 10:26 | Emergency (ER) | payer SELFPAY ==
[2022-04-10] MEDS ORDERED: IBUPROFEN 200 MG TAB PO ONE (10:40)
--- NOTE | 2022-04-10 10:52 | ER ---
Nurse's Notes [facility] Name: Alberto Lynn Age: 32 yrs Sex: Male : 1990 Arrival Date: 04/10/2022 Time: 10:29 Bed IW2 Private MD: Diagnosis: Pain in left leg Presentation: 04/10 10:31 Chief complaint: Patient states: L lower leg pain that has been ongoing since November. ss Pt reports that he has been seen before in the ER for this and was told it's just leg pain. Coronavirus screen: Client denies travel out of the [place] in the last 14 days. Ebola Screen: Patient denies exposure to infectious person. Patient denies travel to an Ebola-affected area in the 21 days before illness onset. Initial Sepsis Screen: Does the patient meet any 2 criteria? No. Patient's initial sepsis screen is negative. Does the patient have a suspected source of infection? No. Patient's initial sepsis screen is negative. Risk Assessment: Do you want to hurt yourself or someone else? Patient reports no desire to harm self or others. Onset of symptoms was November 2021. 10:31 Method Of Arrival: EMS: [facility] 10:31 Acuity: ZAHIDA 4 ss Historical: - Allergies: 10:32 No Known Allergies; ss - Home Meds: 10:32 None [Active]; ss - PMHx: 10:32 None; ss - PSHx: 10:32 None; ss - Immunization history:: Client reports having NOT received the Covid vaccine. - Social history:: Smoking status: Patient reports the use of cigarette tobacco products, denies chronic smoking, but will smoke occasionally. Screenin:30 [facility] ED Fall Risk Assessment (Adult) History of falling in the last 3 months, ss including since admission No falls in past 3 months (0 pts). Abuse screen: Denies threats or abuse. Denies injuries from another. Nutritional screening: No deficits noted. Tuberculosis screening: Never had TB. Assessment: 11:30 General: Appears in no apparent distress. comfortable, Behavior is calm, cooperative. ss Pain: Complains of pain in left leg Pain currently is 9 out of 10 on a pain scale. Is chronic. Neuro: Level of Consciousness is awake, alert, obeys commands, Oriented to person, place, time, situation. Derm: Skin is pink, warm \T\ dry. normal. Vital Signs: 10:31 BP 127 / 79; Pulse 90; Resp 15; Temp 98.2(TE); Pulse Ox 99% on R/A; Weight 92.08 kg; ss Height 5 ft. 11 in. (180.34 cm); Pain 9/10; 10:31 Body Mass Index 28.31 (92.08 kg, 180.34 cm) ss ED Course: 10:29 Patient arrived in ED. mr 10:32 Kristy Dumont [facility]-C [facility]. kb 10:32 Curtis Caban MD is Attending Physician. kb 10:32 Triage completed. ss 10:32 Arm band placed on left wrist. ss 10:38 Shannon Hairston, YI is Primary Nurse. ss 11:30 Patient has correct armband on for positive identification. Bed in low position. Call ss light in reach. 11:31 No provider procedures requiring assistance completed. Patient did not have IV access ss during this emergency room visit. Administered Medications: 10:38 Drug: Ibuprofen 600 mg Route: PO; ss 10:45 Follow up: Response: No adverse reaction ss Medication: 11:30 VIS not applicable for this client. ss Outcome: 10:51 Discharge ordered by . kb 11:31 Discharged to home ambulatory. ss 11:31 Condition: good 11:31 Discharge instructions given to patient, Instructed on discharge instructions, follow up and referral plans. Demonstrated understanding of instructions, follow-up care. 11:31 Patient left the ED. ss Signatures: Kristy Dumont FNP-C FNP-Marely Aydee France mr Shannon Hairston, RN RN ss
--- NOTE | 2022-04-10 10:52 | EDPHYS ---
Physician Documentation [facility] Name: Alberto Lynn Age: 32 yrs Sex: Male : 1990 Arrival Date: 04/10/2022 Time: 10:29 Bed IW2 Private MD: ED Physician Curtis Caban HPI: 04/10 10:59 This 32 yrs old Male presents to ER via EMS with complaints of Leg Pain. kb 10:59 The patient presents with pain. The complaints affect the left leg. Context: The kb problem was sustained at home, resulted from a chronic condition, the patient can fully bear weight, the patient is able to ambulate. Onset: The symptoms/episode began/occurred 1 year(s) ago, and became persistent. Modifying factors: The symptoms are alleviated by nothing. the symptoms are aggravated by nothing. Associated signs and symptoms: The patient has no apparent associated signs or symptoms. Treatment prior to arrival includes: no previous treatment. Severity of symptoms: At their worst the symptoms were mild, in the emergency department the symptoms are unchanged. The patient has not experienced similar symptoms in the past. The patient has been recently seen at the [facility] Emergency Department, last week, for similar complaints. Historical: - Allergies: 10:32 No Known Allergies; ss - Home Meds: 10:32 None [Active]; ss - PMHx: 10:32 None; ss - PSHx: 10:32 None; ss - Immunization history:: Client reports having NOT received the Covid vaccine. - Social history:: Smoking status: Patient reports the use of cigarette tobacco products, denies chronic smoking, but will smoke occasionally. ROS: 10:58 Constitutional: Negative for fever, chills, and weight loss. kb 10:58 MS/extremity: Positive for pain, of the left leg. 10:58 All other systems are negative. Exam: 10:58 Constitutional: This is a well developed, well nourished patient who is awake, alert, kb and in no acute distress. Head/Face: Normocephalic, atraumatic. ENT: Moist Mucous membranes Cardiovascular: Regular rate and rhythm with a normal S1 and S2. No gallops, murmurs, or rubs. No pulse deficits. Respiratory: Respirations even and unlabored. No increased work of breathing. Talking in full sentences Abdomen/GI: Soft, non-tender. No distention Skin: Warm, dry with normal turgor. Normal color. Neuro: Awake and alert, GCS 15, oriented to person, place, time, and situation. Moves all extremities. Normal gait. Psych: Awake, alert, with orientation to person, place and time. Behavior, mood, and affect are within normal limits. 10:58 Musculoskeletal/extremity: Extremities: grossly normal except: noted in the left leg: pain, ROM: intact in all extremities, Circulation is intact in all extremities. Sensation intact. Weight bearing: able to fully bear weight. Vital Signs: 10:31 BP 127 / 79; Pulse 90; Resp 15; Temp 98.2(TE); Pulse Ox 99% on R/A; Weight 92.08 kg; ss Height 5 ft. 11 in. (180.34 cm); Pain 9/10; 10:31 Body Mass Index 28.31 (92.08 kg, 180.34 cm) ss MDM: 10:32 Patient medically screened. kb 10:55 Differential diagnosis: dislocation, closed fracture, contusion. Data reviewed: vital kb signs, nurses notes. I considered the following discharge prescriptions or medication management in the emergency department I discussed and recommended Over The Counter medications. Historians other than the Patient: EMS: [facility]. Care significantly affected by the following Social Determinants of Health: Poor access to transportation, Inadequate housing. Counseling: I had a detailed discussion with the patient and/or guardian regarding: the historical points, exam findings, and any diagnostic results supporting the discharge/admit diagnosis, the need for outpatient follow up, a family practitioner, to return to the emergency department if symptoms worsen or persist or if there are any questions or concerns that arise at home. ED course: Patient is a 32-year-old male who presents for pain in left leg that he describes as aching. Denies any recent injury. States he fractured his leg last year and has had intermittent achiness since then. On exam patient has no tenderness to left leg. Full range of motion. Ambulates with steady gait. Educated to follow-up with PCP for continued symptoms.. Administered Medications: 10:38 Drug: Ibuprofen 600 mg Route: PO; ss 10:45 Follow up: Response: No adverse reaction ss Disposition Summary: 04/10/22 10:51 Discharge Ordered Location: Home kb Condition: Stable kb Diagnosis - Pain in left leg kb Followup: kb - With: Emergency Department - When: As needed - Reason: Worsening of condition Followup: kb - With: Private Physician - When: 2 - 3 days - Reason: Recheck today's complaints, Continuance of care, Re-evaluation by your physician Discharge Instructions: - Discharge Summary Sheet kb - Musculoskeletal Pain kb Forms: - Medication Reconciliation Form kb - Thank You Letter kb - Antibiotic Education kb - Prescription Opioid Use kb Signatures: Kristy Dumont FNP-C FNP-Shannon Marquez, RN RN ss Corrections: (The following items were deleted from the chart) 10:59 10:59 The patient has not recently seen a physician, [facility] 11:00 10:55 ED course: Patient is a 32-year-old male who presents for pain in left leg that kb he describes as aching. Denies any recent injury. States he fractured his leg last year and has had intermittent achiness since then. On exam patient has no tenderness to left leg. Full range of motion. Ambulates with steady gait. Educated to follow-up with PCP for continued symptoms.. kb
== END 2022-04-10 11:31 | disposition home or self-care (01) ==
LOC: ER 10:26
DX: M79.605 Pain in left leg (principal); F17.210 Nicotine dependence, cigarettes, uncomplicated

== ENCOUNTER 2022-04-11 18:08 | Emergency (ER) | payer SELFPAY ==
[2022-04-11] MEDS ORDERED: IBUPROFEN 200 MG TAB PO ONE (18:36)
[2022-04-11] MEDS ORDERED: CYCLOBENZAPRINE 10 MG TAB ONE (18:36)
--- NOTE | 2022-04-11 19:28 | ER ---
Nurse's Notes [facility] Name: Alberto Lynn Age: 32 yrs Sex: Male : 1990 Arrival Date: 04/11/2022 Time: 18:09 Bed DIS2 Private MD: Diagnosis: Pain in left leg Presentation: 04/11 18:10 Chief complaint: EMS states: pt c/o left leg pain today. Coronavirus screen: At this iw time, the client does not indicate any symptoms associated with coronavirus-19. Ebola Screen: Patient negative for fever greater than or equal to 101.5 degrees Fahrenheit, and additional compatible Ebola Virus Disease symptoms Patient denies exposure to infectious person. Patient denies travel to an Ebola-affected area in the 21 days before illness onset. No symptoms or risks identified at this time. Initial Sepsis Screen: Does the patient meet any 2 criteria? No. Patient's initial sepsis screen is negative. Does the patient have a suspected source of infection? No. Patient's initial sepsis screen is negative. Risk Assessment: Do you want to hurt yourself or someone else? Patient reports no desire to harm self or others. Onset of symptoms was April 11, 2022. 18:10 Method Of Arrival: EMS: [facility] iw 18:10 Acuity: ZAHIDA 4 iw Triage Assessment: 19:40 General: Appears in no apparent distress. Behavior is calm, cooperative. iw Historical: - Allergies: 18:11 No Known Allergies; iw - Home Meds: 18:11 None [Active]; iw - PMHx: 18:11 None; iw - Immunization history:: Adult Immunizations. - Social history:: Smoking status: . Screenin:40 [facility] ED Fall Risk Assessment (Adult) Score/Fall Risk Level 0 - 2 = Low Risk. Abuse iw screen: Denies threats or abuse. Denies injuries from another. Nutritional screening: No deficits noted. Tuberculosis screening: No symptoms or risk factors identified. Assessment: 19:38 Reassessment: Patient appears in no apparent distress at this time. Patient and/or iw family updated on plan of care and expected duration. Pain level reassessed. Patient is alert, oriented x 3, equal unlabored respirations, skin warm/dry/pink. Patient states feeling better. Patient states symptoms have improved. Vital Signs: 18:11 BP 126 / 85; Pulse 68; Resp 16; Temp 98.1; Pulse Ox 98% on R/A; iw ED Course: 18:09 Patient arrived in ED. iw 18:11 Triage completed. iw 18:11 Arm band placed on. iw 18:14 Roz Rao, RN is Primary Nurse. iw 18:15 Krist[facility] Dum[facility] FNP-C [facility]. kb 18:15 Toni Nieto MD is Attending Physician. kb 19:38 No provider procedures requiring assistance completed. Patient did not have IV access iw during this emergency room visit. 19:40 Patient has correct armband on for positive identification. iw Administered Medications: 18:35 Drug: Flexeril (cyclobenzaprine) 10 mg Route: PO; iw 19:00 Follow up: Response: No adverse reaction iw 18:35 Drug: Ibuprofen 600 mg Route: PO; iw 19:00 Follow up: Response: No adverse reaction; Pain is decreased iw Medication: 19:40 VIS not applicable for this client. iw Outcome: 19:27 Discharge ordered by . kb 19:40 Discharged to home ambulatory. iw 19:40 Condition: good 19:40 Discharge instructions given to patient, Instructed on discharge instructions, follow up and referral plans. Demonstrated understanding of instructions. 19:40 Patient left the ED. iw Signatures: Kristy Dumont FNP-C FNP-Roz Whelan, YI RN iw
--- NOTE | 2022-04-11 19:28 | EDPHYS ---
Physician Documentation [facility] Name: Alberto Lynn Age: 32 yrs Sex: Male : 1990 Arrival Date: 04/11/2022 Time: 18:09 Bed DIS2 Private MD: ED Physician Toni Nieto HPI: 04/11 19:27 This 32 yrs old Male presents to ER via EMS with complaints of Leg Pain. kb 19:27 The patient presents with pain. The complaints affect the left leg. Context: The kb problem was sustained at home, resulted from a chronic condition, the patient can fully bear weight, the patient is able to ambulate. Onset: The symptoms/episode began/occurred today. Modifying factors: The symptoms are alleviated by nothing. the symptoms are aggravated by weight bearing. Associated signs and symptoms: The patient has no apparent associated signs or symptoms. Treatment prior to arrival includes: no previous treatment. Severity of symptoms: At their worst the symptoms were moderate, in the emergency department the symptoms are unchanged. The patient has experienced similar episodes in the past, chronically. The patient has been recently seen at the [facility] Emergency Department. Historical: - Allergies: 18:11 No Known Allergies; iw - Home Meds: 18:11 None [Active]; iw - PMHx: 18:11 None; iw - Immunization history:: Adult Immunizations. - Social history:: Smoking status: . ROS: 19:12 Constitutional: Negative for fever, chills, and weight loss. kb 19:12 MS/extremity: Positive for pain, of the left leg. 19:12 All other systems are negative. Exam: 19:12 Constitutional: This is a well developed, well nourished patient who is awake, alert, kb and in no acute distress. Head/Face: Normocephalic, atraumatic. ENT: Moist Mucous membranes Cardiovascular: Regular rate and rhythm with a normal S1 and S2. No gallops, murmurs, or rubs. No pulse deficits. Respiratory: Respirations even and unlabored. No increased work of breathing. Talking in full sentences Abdomen/GI: Soft, non-tender. No distention Skin: Warm, dry with normal turgor. Normal color. MS/ Extremity: Pulses equal, no cyanosis. Neurovascular intact. Full, normal range of motion. Neuro: Awake and alert, GCS 15, oriented to person, place, time, and situation. Moves all extremities. Normal gait. Psych: Awake, alert, with orientation to person, place and time. Behavior, mood, and affect are within normal limits. Vital Signs: 18:11 BP 126 / 85; Pulse 68; Resp 16; Temp 98.1; Pulse Ox 98% on R/A; iw MDM: 18:15 Patient medically screened. kb 19:13 Differential diagnosis: chronic pain. Data reviewed: vital signs, nurses notes. kb Historians other than the Patient: EMS: [facility]. 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 19:25 ED course: Patient is a 32-year-old male that presents for chronic left leg pain. No kb new injury or trauma. Patient has been seen for this a few times over the last week and a half. Oo exam patient has no tenderness to left leg but reports achiness. Ambulatory with steady gait. Educated on follow-up with PCP.. Administered Medications: 18:35 Drug: Flexeril (cyclobenzaprine) 10 mg Route: PO; iw 19:00 Follow up: Response: No adverse reaction iw 18:35 Drug: Ibuprofen 600 mg Route: PO; iw 19:00 Follow up: Response: No adverse reaction; Pain is decreased iw Disposition Summary: 04/11/22 19:27 Discharge Ordered Location: Home kb Condition: Stable kb Diagnosis - Pain in left leg kb Followup: kb - With: Emergency Department - When: As needed - Reason: Worsening of condition Followup: kb - With: Private Physician - When: 2 - 3 days - Reason: Recheck today's complaints, Continuance of care, Re-evaluation by your physician Discharge Instructions: - Discharge Summary Sheet kb - Musculoskeletal Pain kb Forms: - Medication Reconciliation Form kb - Thank You Letter kb - Antibiotic Education kb - Prescription Opioid Use kb Signatures: Kristy Dumont, PAUC TRACEY-Roz Whelan, RN RN iw Corrections: (The following items were deleted from the chart) 19:27 19:25 ED course: Patient is a 32-year-old male that presents for chronic left leg pain. kb On exam patient has no tenderness to left leg but reports achiness. Ambulatory with steady gait. Educated on follow-up with PCP.. kb
== END 2022-04-11 19:40 | disposition home or self-care (01) ==
LOC: ER 18:08
DX: M79.605 Pain in left leg (principal)
CPT/HCPCS: 99283

== ENCOUNTER 2022-04-17 03:10 | Emergency (ER) | payer SELFPAY ==
[2022-04-17] MEDS ORDERED: IBUPROFEN 400 MG TAB ONE (03:26)
[2022-04-17 04:50] VITALS: TEMP 98.1
[2022-04-17 04:52] VITALS: O2SAT 100
[2022-04-17 04:53] VITALS: BP 101/64
--- NOTE | 2022-04-17 12:07 | RAD REPORT ---
EXAM DESCRIPTION: XR Left Foot Complete, 3 Views CLINICAL HISTORY: PAIN TECHNIQUE: Frontal, lateral and oblique views of the left foot. COMPARISON: No relevant prior studies available. FINDINGS: Bones/joints: No acute fracture. Developmental fusion at the 5th DIP articulation. S mall posterior calcaneal enthesophyte. No dislocation. Soft tissues: Unremarkable. No radiopaque foreign body. IMPRESSION: No acute injury. Electronically signed by: Elena Padilla MD 04/17/2022 3:36 AM DIGITIZER Due to temporary technical issues with the PACS/Fluency reporting system, reports are being signed by the in house radiologists without review as a courtesy to insure prompt reporting. The interpreting radiologist is fully responsible for the content of the report.
--- NOTE | 2022-05-03 15:25 | EDPHYS ---
Physician Documentation [facility] Name: Alberto Lynn Age: 32 yrs Sex: Male : 1990 Arrival Date: 04/17/2022 Time: 03:11 Bed 2 Private MD: ED Physician Andrew Eli HPI: 04/17 04:33 This 32 yrs old Male presents to ER via EMS with complaints of Foot Pain. sp3 04:33 32-year-old male with no significant past medical history presents with chief complaint sp3 left foot pain times several days. Patient denies any direct injury but states that it is been hurting. Patient is currently homeless and has been living in different places. Denies any numbness, tingling, direct injury, proximal joint pain, antalgic gait, chest pain, shortness of breath, abdominal pain, head injury, or any other symptoms or aspects on ROS at this time.. Historical: - Allergies: 03:12 No Known Allergies; bb - Home Meds: 03:12 None [Active]; bb - PMHx: 03:12 None; bb - PSHx: 03:12 None; bb - Immunization history:: Client reports having NOT received the Covid vaccine. - Social history:: Smoking status: Patient reports the use of cigarette tobacco products, denies chronic smoking, but will smoke occasionally. ROS: 04:35 Constitutional: Negative for fever, chills, and weight loss, Eyes: Negative for injury, sp3 pain, redness, and discharge, Neck: Negative for injury, pain, and swelling, Cardiovascular: Negative for chest pain, palpitations, and edema, Respiratory: Negative for shortness of breath, cough, wheezing, and pleuritic chest pain, Abdomen/GI: Negative for abdominal pain, nausea, vomiting, diarrhea, and constipation, Back: Negative for injury and pain, Skin: Negative for injury, rash, and discoloration, Neuro: Negative for headache, weakness, numbness, tingling, and seizure, Psych: Negative for depression, anxiety, suicide ideation, homicidal ideation, and hallucinations, Allergy/Immunology: Negative for hives, rash, and allergies. 04:35 All other systems are negative. Exam: 04:35 Constitutional: This is a well developed, well nourished patient who is awake, alert, sp3 and in no acute distress. Chest/axilla: Normal chest wall appearance and motion. Nontender with no deformity. No lesions are appreciated. Cardiovascular: Regular rate and rhythm with a normal S1 and S2. No gallops, murmurs, or rubs. Normal PMI, no JVD. No pulse deficits. Respiratory: Lungs have equal breath sounds bilaterally, clear to auscultation and percussion. No rales, rhonchi or wheezes noted. No increased work of breathing, no retractions or nasal flaring. Abdomen/GI: Soft, non-tender, with normal bowel sounds. No distension or tympany. No guarding or rebound. No evidence of tenderness throughout. Skin: Warm, dry with normal turgor. Normal color with no rashes, no lesions, and no evidence of cellulitis. Neuro: Awake and alert, GCS 15, oriented to person, place, time, and situation. Cranial nerves II-XII grossly intact. Motor strength 5/5 in all extremities. Sensory grossly intact. Cerebellar exam normal. Normal gait. 04:35 Musculoskeletal/extremity: Left lateral foot pain without pain to palpation. Pain is mainly in soft tissue.. Vital Signs: 03:14 BP 146 / 92; Pulse 68; Resp 14; Temp 98.1(O); Pulse Ox 98% on R/A; Weight 92.08 kg; rv1 Height 5 ft. 11 in. ; Pain 9/10; 03:30 BP 105 / 67; Pulse 64; Resp 18 S; Pulse Ox 100% on R/A; aa9 04:44 BP 101 / 64; Pulse 59; Resp 16 S; Pulse Ox 100% on R/A; aa9 03:14 Body Mass Index 28.31 (92.08 kg, 180.34 cm) rv1 03:14 Pain Scale: Adult rv1 MDM: 04:25 Patient medically screened. sp3 04:36 Data reviewed: vital signs, nurses notes, radiologic studies. ED course: Ibuprofen is sp3 made pain better. X-ray of the left foot is negative. We will discharge patient home at this time with soft tissue injury/pain.. 04/17 03:13 Order name: XRAY Foot LEFT 3 View bb Administered Medications: 03:25 Drug: Ibuprofen PO 800 mg Route: PO; aa9 04:44 Follow up: Response: No adverse reaction aa9 Disposition Summary: 04/17/22 04:36 Discharge Ordered Location: Home sp3 Condition: Stable sp3 Diagnosis - Pain in left foot sp3 Discharge Instructions: - Discharge Summary Sheet sp3 - Musculoskeletal Pain sp3 Forms: - Medication Reconciliation Form sp3 - Thank You Letter sp3 - Antibiotic Education sp3 - Prescription Opioid Use sp3 Signatures: Dispatcher [employer] Anita Mckeon RN RN bb Andrew Eli MD MD sp3 Alesia Sheldon RN RN aa9
--- NOTE | 2022-05-03 15:25 | ER ---
Nurse's Notes [facility] Name: Alberto Lynn Age: 32 yrs Sex: Male : 1990 Arrival Date: 04/17/2022 Time: 03:11 Bed 2 Private MD: Diagnosis: Pain in left foot Presentation: 04/17 03:11 Chief complaint: EMS states: they were toned out for report of pt waking up with sharp bb left foot pain. Coronavirus screen: At this time, the client does not indicate any symptoms associated with coronavirus-19. Ebola Screen: No symptoms or risks identified at this time. Initial Sepsis Screen: Does the patient meet any 2 criteria? No. Patient's initial sepsis screen is negative. Does the patient have a suspected source of infection? No. Patient's initial sepsis screen is negative. Risk Assessment: Do you want to hurt yourself or someone else? Patient reports no desire to harm self or others. Onset of symptoms is unknown. 03:11 Method Of Arrival: EMS: [facility] bb 03:11 Acuity: ZAHIDA 4 bb Triage Assessment: 04:44 Pain: Complains of pain in Left foot pain. aa9 Historical: - Allergies: 03:12 No Known Allergies; bb - Home Meds: 03:12 None [Active]; bb - PMHx: 03:12 None; bb - PSHx: 03:12 None; bb - Immunization history:: Client reports having NOT received the Covid vaccine. - Social history:: Smoking status: Patient reports the use of cigarette tobacco products, denies chronic smoking, but will smoke occasionally. Screenin:25 [facility] ED Fall Risk Assessment (Adult) History of falling in the last 3 months, aa9 including since admission No falls in past 3 months (0 pts) Confusion or Disorientation No (0 pts) Intoxicated or Sedated No (0 pts) Impaired Gait No (0 pts) Mobility Assist Device Used No (0 pt) Altered Elimination No (0 pt) Score/Fall Risk Level 0 - 2 = Low Risk Oriented to surroundings, Maintained a safe environment. Abuse screen: Denies threats or abuse. Denies injuries from another. Nutritional screening: No deficits noted. Tuberculosis screening: No symptoms or risk factors identified. Assessment: 03:25 General: Appears in no apparent distress. comfortable, unkempt, Behavior is calm, aa9 cooperative, appropriate for age. Neuro: Level of Consciousness is awake, alert, obeys commands. Cardiovascular: Patient's skin is warm and dry. Respiratory: Airway is patent Respiratory effort is even, unlabored. : No signs and/or symptoms were reported regarding the genitourinary system. Vital Signs: 03:14 BP 146 / 92; Pulse 68; Resp 14; Temp 98.1(O); Pulse Ox 98% on R/A; Weight 92.08 kg; rv1 Height 5 ft. 11 in. ; Pain 9/10; 03:30 BP 105 / 67; Pulse 64; Resp 18 S; Pulse Ox 100% on R/A; aa9 04:44 BP 101 / 64; Pulse 59; Resp 16 S; Pulse Ox 100% on R/A; aa9 03:14 Body Mass Index 28.31 (92.08 kg, 180.34 cm) rv1 03:14 Pain Scale: Adult rv1 ED Course: 03:11 Patient arrived in ED. bb 03:12 Triage completed. bb 03:12 Arm band placed on Patient placed in an exam room, on a stretcher, on pulse oximetry. bb 03:27 XRAY Foot LEFT 3 View In Process Unspecified. EDMS 04:19 Andrew Eli MD is Attending Physician. sp3 04:43 No provider procedures requiring assistance completed. Patient did not have IV access aa9 during this emergency room visit. 04:44 Patient has correct armband on for positive identification. Placed in gown. Bed in low aa9 position. Call light in reach. Administered Medications: 03:25 Drug: Ibuprofen PO 800 mg Route: PO; aa9 04:44 Follow up: Response: No adverse reaction aa9 Medication: 04:44 VIS not applicable for this client. aa9 Outcome: 04:36 Discharge ordered by . sp3 04:44 Discharged to home ambulatory. aa9 04:44 Condition: stable 04:44 Discharge instructions given to patient, Instructed on discharge instructions, follow up and referral plans. Demonstrated understanding of instructions, follow-up care. 04:45 Patient left the ED. aa9 Signatures: Dispatcher [employer] EDMS Anita Luna RN RN bb Patel, Setul, MD MD sp3 Alesia Sheldon RN RN aa9 Cervantes, Melita rv1
== END 2022-04-17 04:45 | disposition home or self-care (01) ==
LOC: ER 03:10
DX: M79.672 Pain in left foot (principal); Z59.00 Homelessness unspecified; F17.210 Nicotine dependence, cigarettes, uncomplicated
CPT/HCPCS: 99284

== ENCOUNTER 2022-04-23 13:55 | Emergency (ER) | payer SELFPAY ==
--- NOTE | 2022-04-23 14:12 | ER ---
Nurse's Notes [facility] Name: Alberto Lynn Age: 32 yrs Sex: Male : 1990 Arrival Date: 04/23/2022 Time: 13:57 Bed 14 Private MD: Diagnosis: Chronic pain, not elsewhere classified;Pain in left foot Presentation: 04/23 13:58 Chief complaint: EMS states: toned out for left foot pain radiating to left leg, eh3 started in November 2022, also c/o lack of appetite for the past 3 weeks. Coronavirus screen: Vaccine status: Patient reports receiving the 2nd dose of the covid vaccine. Ebola Screen: No symptoms or risks identified at this time. Initial Sepsis Screen: Does the patient meet any 2 criteria? No. Patient's initial sepsis screen is negative. Does the patient have a suspected source of infection? No. Patient's initial sepsis screen is negative. Risk Assessment: Do you want to hurt yourself or someone else? Patient reports no desire to harm self or others. Onset of symptoms was April 23, 2022. 13:58 Method Of Arrival: EMS: [facility] 13:58 Acuity: ZAHIDA 3 eh3 Triage Assessment: 13:59 General: Appears in no apparent distress. uncomfortable, Behavior is calm, cooperative, eh3 appropriate for age. Pain: Complains of pain in left foot Pain radiates to left leg Pain currently is 10 out of 10 on a pain scale. Quality of pain is described as sharp, shooting, Is intermittent, Alleviated by nothing. EENT: No signs and/or symptoms were reported regarding the EENT system. Neuro: Level of Consciousness is awake, alert, obeys commands, Oriented to person, place, time, situation. Cardiovascular: Capillary refill < 3 seconds Patient's skin is warm and dry. Respiratory: Airway is patent Respiratory effort is even, unlabored, Respiratory pattern is regular, symmetrical. GI: Abdomen is round non-distended, Reports decreased appetite. : No signs and/or symptoms were reported regarding the genitourinary system. Derm: No signs and/or symptoms reported regarding the dermatologic system. Skin is pink, warm \T\ dry. Musculoskeletal: Circulation, motion, and sensation intact. Range of motion: intact in all extremities. Historical: - Allergies: 13:59 No Known Allergies; eh3 - Home Meds: 13:59 None [Active]; eh3 - PMHx: 13:59 None; eh3 - PSHx: 13:59 None; eh3 - Immunization history:: Adult Immunizations up to date. - Social history:: Smoking status: Patient reports the use of cigarette tobacco products, smokes one-half pack cigarettes per day, Patient/guardian denies using alcohol. Screenin:01 [facility] ED Fall Risk Assessment (Adult) Score/Fall Risk Level 0 - 2 = Low Risk. Abuse eh3 screen: Denies threats or abuse. Denies injuries from another. Nutritional screening: No deficits noted. Tuberculosis screening: No symptoms or risk factors identified. Assessment: 14:01 Reassessment: No changes from previously documented assessment. See triage assessment. 3 Vital Signs: 13:58 BP 128 / 80; Pulse 70; Resp 16; Temp 98.4(O); Pulse Ox 100% on R/A; Weight 92.08 kg; 3 Height 5 ft. 11 in. ; Pain 10/10; 13:58 Body Mass Index 28.31 (92.08 kg, 180.34 cm) 3 13:58 Pain Scale: Adult [facility] ED Course: 13:57 Patient arrived in ED. 3 13:57 Kristy Dumont FNP-C [facility]. kb 13:57 Toni Nieto MD is Attending Physician. kb 13:59 Triage completed. 3 13:59 Arm band placed on. 3 14:01 Patient has correct armband on for positive identification. Bed in low position. Call [facility] light in reach. Side rails up X2. Pulse ox on. NIBP on. Door closed. Noise minimized. Lights dimmed. Warm blanket given. 14:02 Virginia Oliva, RN is Primary Nurse. 3 Administered Medications: No medications were administered Outcome: 14:11 Discharge ordered by . kb Signatures: Kristy Dumont FNP-C FNP-[place]ia Henry, YI RN [facility]
--- NOTE | 2022-04-23 14:12 | EDPHYS ---
Physician Documentation [facility] Name: Alberto Lynn Age: 32 yrs Sex: Male : 1990 Arrival Date: 04/23/2022 Time: 13:57 Bed 14 Private MD: ED Physician Toni Nieto Historical: - Allergies: 04/23 13:59 No Known Allergies; eh3 - Home Meds: 13:59 None [Active]; eh3 - PMHx: 13:59 None; eh3 - PSHx: 13:59 None; eh3 - Immunization history:: Adult Immunizations up to date. - Social history:: Smoking status: Patient reports the use of cigarette tobacco products, smokes one-half pack cigarettes per day, Patient/guardian denies using alcohol. Vital Signs: 13:58 BP 128 / 80; Pulse 70; Resp 16; Temp 98.4(O); Pulse Ox 100% on R/A; Weight 92.08 kg; eh3 Height 5 ft. 11 in. ; Pain 10/10; 13:58 Body Mass Index 28.31 (92.08 kg, 180.34 cm) [facility] 13:58 Pain Scale: Adult 3 MDM: 13:57 Patient medically screened. kb Administered Medications: No medications were administered Disposition Summary: 04/23/22 14:11 Discharge Ordered Location: Home kb Condition: Stable kb Diagnosis - Chronic pain, not elsewhere classified kb - Pain in left foot kb Followup: kb - With: Emergency Department - When: As needed - Reason: Worsening of condition Followup: kb - With: Private Physician - When: 2 - 3 days - Reason: Recheck today's complaints, Continuance of care, Re-evaluation by your physician Discharge Instructions: - Discharge Summary Sheet kb - Musculoskeletal Pain kb Forms: - Medication Reconciliation Form kb - Thank You Letter kb - Antibiotic Education kb - Prescription Opioid Use kb Signatures: Kristy Dumont FNP-C FNP-[place]ia Henry RN RN 3
[2022-04-23] MEDS ORDERED: IBUPROFEN 400 MG TAB ONE (14:37)
== END 2022-04-23 14:55 | disposition home or self-care (01) ==
LOC: ER 13:55
DX: G89.29 Other chronic pain (principal); F17.210 Nicotine dependence, cigarettes, uncomplicated
CPT/HCPCS: 99283

== ENCOUNTER 2022-04-28 13:24 | Emergency (ER) | payer SELFPAY ==
[2022-04-28] MEDS ORDERED: IBUPROFEN 400 MG TAB ONE (13:35)
--- NOTE | 2022-04-28 13:37 | ER ---
Nurse's Notes [facility] Name: Alberto Lynn Age: 32 yrs Sex: Male : 1990 Arrival Date: 04/28/2022 Time: 13:25 Bed DX3 Private MD: Diagnosis: Pain in left foot-chronic pain Presentation: 04/28 13:26 Chief complaint: Patient states: Chronic L foot pain. Coronavirus screen: Client denies ll1 travel out of the [place] in the last 14 days. At this time, the client does not indicate any symptoms associated with coronavirus-19. Ebola Screen: Patient denies travel to an Ebola-affected area in the 21 days before illness onset. Initial Sepsis Screen: Does the patient meet any 2 criteria? No. Patient's initial sepsis screen is negative. Does the patient have a suspected source of infection? No. Patient's initial sepsis screen is negative. Risk Assessment: Do you want to hurt yourself or someone else? Patient reports no desire to harm self or others. Onset of symptoms is unknown. 13:26 Method Of Arrival: EMS ll1 13:26 Acuity: ZAHIDA 5 ll1 Triage Assessment: 13:27 General: Appears in no apparent distress. Behavior is calm, cooperative, appropriate ll1 for age. Pain: Complains of pain in left foot. Musculoskeletal: Circulation, motion, and sensation intact. Capillary refill < 3 seconds. Historical: - Allergies: 13:27 No Known Allergies; ll1 - PMHx: 13:27 None; ll1 - PSHx: 13:27 leg FX; ll1 - Immunization history:: Adult Immunizations up to date. - Social history:: Smoking status: Patient reports the use of cigarette tobacco products, smokes one-half pack cigarettes per day. Screenin:28 [facility] ED Fall Risk Assessment (Adult) Score/Fall Risk Level 0 - 2 = Low Risk ll1 Oriented to surroundings, Maintained a safe environment, Educated pt \T\ family on fall prevention, incl call for assistance when getting out of bed, Hourly rounding (assess needs \T\ fall precautionary measures) done. Abuse screen: Denies threats or abuse. Nutritional screening: No deficits noted. Tuberculosis screening: No symptoms or risk factors identified. Assessment: 13:33 Reassessment: No changes from previously documented assessment. Patient and/or family ll1 updated on plan of care and expected duration. Pain level reassessed. Patient is alert, oriented x 3, equal unlabored respirations, skin warm/dry/pink. Vital Signs: 13:26 BP 138 / 79; Pulse 76; Resp 16; Temp 97.7; Pulse Ox 98% on R/A; Pain 10/10; ll1 13:26 Pain Scale: Adult ll1 ED Course: 13:25 Patient arrived in ED. ll1 13:26 Krist[facility] Dum[facility]C [facility]. kb 13:27 Sterling Parker MD is Attending Physician. kb 13:27 Triage completed. ll1 13:27 Arm band placed on Patient placed in a hallway bed, in view of staff members. ll1 13:28 Patient has correct armband on for positive identification. Bed in low position. ll1 Cardiac monitoring not applicable on this patient. 13:30 Amna Marcial, RN is Primary Nurse. ll1 13:33 No provider procedures requiring assistance completed. Patient did not have IV access ll1 during this emergency room visit. Administered Medications: 13:33 Drug: Ibuprofen PO 800 mg Route: PO; ll1 Medication: 13:28 VIS not applicable for this client. ll1 Outcome: 13:36 Discharge ordered by . kb Signatures: Kristy Dumont FNP-C FNP-Ckb Lewis, Lynsay, RN RN ll1
--- NOTE | 2022-04-28 13:37 | EDPHYS ---
Physician Documentation [facility] Name: Alberto Lynn Age: 32 yrs Sex: Male : 1990 Arrival Date: 04/28/2022 Time: 13:25 Bed DX3 Private MD: ED Physician Sterling Parker Historical: - Allergies: 04/28 13:27 No Known Allergies; ll1 - PMHx: 13:27 None; ll1 - PSHx: 13:27 leg FX; ll1 - Immunization history:: Adult Immunizations up to date. - Social history:: Smoking status: Patient reports the use of cigarette tobacco products, smokes one-half pack cigarettes per day. Vital Signs: 13:26 BP 138 / 79; Pulse 76; Resp 16; Temp 97.7; Pulse Ox 98% on R/A; Pain 10/10; ll1 13:26 Pain Scale: Adult ll1 MDM: 13:27 Patient medically screened. kb Administered Medications: 13:33 Drug: Ibuprofen PO 800 mg Route: PO; ll1 Disposition Summary: 04/28/22 13:36 Discharge Ordered Location: Home kb Condition: Stable kb Diagnosis - Pain in left foot - chronic pain kb Followup: kb - With: Emergency Department - When: As needed - Reason: Worsening of condition Followup: kb - With: Private Physician - When: 2 - 3 days - Reason: Recheck today's complaints, Continuance of care, Re-evaluation by your physician Discharge Instructions: - Discharge Summary Sheet kb - Chronic Pain, Adult kb - Musculoskeletal Pain kb Forms: - Medication Reconciliation Form kb - Thank You Letter kb - Antibiotic Education kb - Prescription Opioid Use kb Signatures: Kristy Dumont FNP-C FNP-Amna Alcantara, RN RN ll1
[2022-04-28 15:26] VITALS: BP 138/79; TEMP 97.7; O2SAT 98
== END 2022-04-28 13:43 | disposition home or self-care (01) ==
LOC: ER 13:24
DX: M79.672 Pain in left foot (principal); G89.29 Other chronic pain; Z72.0 Tobacco use
CPT/HCPCS: 99283

== ENCOUNTER 2022-05-01 11:33 | Emergency (ER) | payer SELFPAY ==
--- NOTE | 2022-05-01 12:13 | EDPHYS ---
Physician Documentation [facility] Name: Alberto Lynn Age: 32 yrs Sex: Male : 1990 Arrival Date: 05/01/2022 Time: 11:36 Bed IW4 Private MD: ED Physician Abdiel Nguyen HPI: 05/01 12:15 This 32 yrs old Male presents to ER via Ambulatory with complaints of Foot Pain. kb 12:15 The patient presents with pain. The complaints affect the left foot and left leg. kb Context: resulted from a chronic condition, the patient can fully bear weight, the patient is able to ambulate. Onset: The symptoms/episode began/occurred 6 month(s) ago. Modifying factors: The symptoms are alleviated by nothing. the symptoms are aggravated by weight bearing. Associated signs and symptoms: The patient has no apparent associated signs or symptoms. Treatment prior to arrival includes: no previous treatment. Severity of symptoms: At their worst the symptoms were mild, moderate, in the emergency department the symptoms are unchanged. The patient has experienced similar episodes in the past, chronically. The patient has been recently seen by a physician:. Historical: - Allergies: 11:50 No Known Allergies; hb - PSHx: 11:50 leg FX; hb ROS: 12:13 Constitutional: Negative for fever, chills, and weight loss. kb 12:13 MS/extremity: Positive for pain, of the left foot and left leg. 12:13 All other systems are negative. Exam: 12:13 Constitutional: This is a well developed, well nourished patient who is awake, alert, kb and in no acute distress. Head/Face: Normocephalic, atraumatic. ENT: Moist Mucous membranes Cardiovascular: Regular rate and rhythm with a normal S1 and S2. No gallops, murmurs, or rubs. No pulse deficits. Respiratory: Respirations even and unlabored. No increased work of breathing. Talking in full sentences Abdomen/GI: Soft, non-tender. No distention Skin: Warm, dry with normal turgor. Normal color. MS/ Extremity: Pulses equal, no cyanosis. Neurovascular intact. Full, normal range of motion. Neuro: Awake and alert, GCS 15, oriented to person, place, time, and situation. Moves all extremities. Normal gait. Vital Signs: 11:48 BP 128 / 94; Pulse 74; Resp 16; Temp 98.5(TE); Pulse Ox 100% on R/A; Weight 92.08 kg; hb Height 5 ft. 11 in. ; Pain 10/10; 11:48 Body Mass Index 28.31 (92.08 kg, 180.34 cm) hb 11:48 Pain Scale: Adult hb MDM: 11:48 Patient medically screened. kb 12:13 Differential diagnosis: dislocation, closed fracture, contusion, chronic pain, PVD, kb dvt. Data reviewed: vital signs, nurses notes. Test considered but Not performed: X-ray: x-ray considered, but pain is chronic with no new injuries and no tenderness. Ultrasound US considered but pulses present, normal color, cap refill less than 2 seconds, no swelling, pain is chronic. Historians other than the Patient: EMS: [facility]. Care significantly affected by the following Social Determinants of Health: Poor access to healthcare and/or lack of insurance, Poor access to transportation, Inadequate housing. Counseling: I had a detailed discussion with the patient and/or guardian regarding: the historical points, exam findings, and any diagnostic results supporting the discharge/admit diagnosis, the need for outpatient follow up, a orthopedic surgeon, to return to the emergency department if symptoms worsen or persist or if there are any questions or concerns that arise at home. Administered Medications: 12:13 Drug: Ibuprofen PO 800 mg Route: PO; ss 12:18 Follow up: Response: Medication administered at discharge. ss Disposition: 17:24 Co-signature as Attending Physician, Abdiel Nguyen MD I agree with the assessment and rt plan of care. I reviewed the patient's care provided by the Advanced Practice Provider and agree with the diagnosis and treatment plan. Disposition Summary: 05/01/22 12:12 Discharge Ordered Location: Home kb Condition: Stable kb Diagnosis - Chronic pain syndrome - left lower extremity kb Followup: kb - With: Emergency Department - When: As needed - Reason: Worsening of condition Followup: kb - With: Private Physician - When: 2 - 3 days - Reason: Recheck today's complaints, Continuance of care, Re-evaluation by your physician Discharge Instructions: - Discharge Summary Sheet kb - Chronic Pain, Adult kb Forms: - Medication Reconciliation Form kb - Thank You Letter kb - Antibiotic Education kb - Prescription Opioid Use kb Signatures: Kristy Dumont FNP-C FNP-Marely Shannon Hairston, RN RN ss Emerald Purcell, RN RN hb Abdiel Nguyen MD MD rt
--- NOTE | 2022-05-01 12:13 | ER ---
Nurse's Notes [facility] Name: Alberto Lynn Age: 32 yrs Sex: Male : 1990 Arrival Date: 05/01/2022 Time: 11:36 Bed IW4 Private MD: Diagnosis: Chronic pain syndrome-left lower extremity Presentation: 05/01 11:48 Chief complaint: Left foot pain since November. Denies new injury. Coronavirus screen: hb At this time, the client does not indicate any symptoms associated with coronavirus-19. Ebola Screen: No symptoms or risks identified at this time. Initial Sepsis Screen: Does the patient meet any 2 criteria? No. Patient's initial sepsis screen is negative. Does the patient have a suspected source of infection? No. Patient's initial sepsis screen is negative. Risk Assessment: Do you want to hurt yourself or someone else? Patient reports no desire to harm self or others. Onset of symptoms was November 2021. 11:48 Method Of Arrival: Ambulatory hb 11:48 Acuity: ZAHIDA 4 hb Historical: - Allergies: 11:50 No Known Allergies; hb - PSHx: 11:50 leg FX; hb Screenin:17 [facility] ED Fall Risk Assessment (Adult) History of falling in the last 3 months, ss including since admission No falls in past 3 months (0 pts). Abuse screen: Denies threats or abuse. Denies injuries from another. Nutritional screening: No deficits noted. Tuberculosis screening: Never had TB. Assessment: 12:17 General: Appears in no apparent distress. comfortable, Behavior is calm, cooperative. ss Pain: Complains of pain in left foot Pain currently is 10 out of 10 on a pain scale. Neuro: Level of Consciousness is awake, alert. Respiratory: Airway is patent Respiratory effort is even, unlabored. Derm: Skin is pink, warm \T\ dry. normal. Vital Signs: 11:48 BP 128 / 94; Pulse 74; Resp 16; Temp 98.5(TE); Pulse Ox 100% on R/A; Weight 92.08 kg; hb Height 5 ft. 11 in. ; Pain 10/10; 11:48 Body Mass Index 28.31 (92.08 kg, 180.34 cm) hb 11:48 Pain Scale: Adult hb ED Course: 11:36 Patient arrived in ED. am2 11:37 Krist[facility] Dum[facility]-C [facility]. kb 11:37 Abdiel Nguyen MD is Attending Physician. kb 11:50 Triage completed. hb 11:50 Arm band placed on. hb 12:13 Shannon Hairston, RN is Primary Nurse. ss 12:17 Patient has correct armband on for positive identification. ss 12:17 No provider procedures requiring assistance completed. Patient did not have IV access ss during this emergency room visit. Administered Medications: 12:13 Drug: Ibuprofen PO 800 mg Route: PO; ss 12:18 Follow up: Response: Medication administered at discharge. ss Medication: 12:17 VIS not applicable for this client. ss Outcome: 12:12 Discharge ordered by . kb 12:17 Discharged to home ambulatory. ss 12:17 Condition: good 12:17 Discharge instructions given to patient, Instructed on discharge instructions, follow up and referral plans. Demonstrated understanding of instructions, follow-up care. 12:19 Patient left the ED. ss Signatures: Kristy Dumont FNP-C TWISTING [employer]AME CHANGER-Ckb Shannon Hairston RN RN Emerald Purcell RN RN Radha Freire am2 Corrections: (The following items were deleted from the chart) 11:50 11:48 BP 128 / 94; Pulse 74bpm; Resp 16bpm; Pulse Ox 100% RA; Temp 98.5F Temporal; hb hb
[2022-05-01] MEDS ORDERED: IBUPROFEN 400 MG TAB ONE (12:17)
[2022-05-01 12:33] VITALS: BP 128/94; TEMP 98.5; O2SAT 100
== END 2022-05-01 12:19 | disposition home or self-care (01) ==
LOC: ER 11:33
DX: G89.4 Chronic pain syndrome (principal)
CPT/HCPCS: 99283

== ENCOUNTER 2022-07-24 16:24 | Emergency (ER) | payer SELFPAY ==
[2022-07-24] MEDS ORDERED: NA CHLORIDE 0.9% 2,000 ML ONE (16:39)
[2022-07-24 16:59] LABS: Absolute Lymphocytes (CBC) 1.1 K/uL (0.7-4.9); Lymphocytes % 18.8 % (15.3-44.8); MCV 90.6 fL (80-100); MPV 8.9 fL (7.6-11.3); RBC Red Blood Cell Count 4.86 M/uL (4.33-5.43)
[2022-07-24 17:12] LABS: Albumin 4.1 g/dL (3.4-5.0); Bilirubin Total 0.3 mg/dL (0.2-1.0); Potassium 3.9 mEq/L (3.5-5.1); Protein, Total 7.5 g/dL (6.4-8.2)
[2022-07-24 17:15] LABS: Specific Gravity 1.029 (1.005-1.030); Urine Bacteria None Seen /HPF (<20); Urine Bilirubin NEGATIVE (Negative); Urine Blood Negative (Negative); Urine Clarity Clear (Clear); Urine Color Yellow (Yellow); Urine Glucose NEGATIVE (Negative); Urine Mucus 2+ /HPF (None Seen); Urine Protein TRACE (Negative); Urine RBC <5 /HPF (None Seen); Urine Urobilinogen Normal (Normal); Urine pH 5.5 (5.0-7.0)
--- NOTE | 2022-07-24 17:17 | ER ---
Nurse's Notes [facility] Name: Alberto Lynn Age: 32 yrs Sex: Male : 1990 Arrival Date: 07/24/2022 Time: 16:24 Bed 4 Private MD: Diagnosis: Myalgia Presentation: 07/24 16:26 Chief complaint: EMS states: MUSCLE CRAMPS AFTER MOVING FURNITURE. Coronavirus screen: bp At this time, the client does not indicate any symptoms associated with coronavirus-19. Ebola Screen: No symptoms or risks identified at this time. Initial Sepsis Screen: Does the patient meet any 2 criteria? No. Patient's initial sepsis screen is negative. Does the patient have a suspected source of infection? No. Patient's initial sepsis screen is negative. Risk Assessment: Do you want to hurt yourself or someone else? Patient reports no desire to harm self or others. Onset of symptoms is unknown. Care prior to arrival: Glucose check: 115. 16:26 Method Of Arrival: EMS: [facility] bp 16:26 Acuity: ZAHIDA 5 bp Triage Assessment: 16:27 General: Appears in no apparent distress. Behavior is appropriate for age. Pain: bp Complains of pain in right leg and left leg. EENT: No deficits noted. Neuro: No deficits noted. Cardiovascular: No deficits noted. Respiratory: No deficits noted. GI: No signs and/or symptoms were reported involving the gastrointestinal system. : No signs and/or symptoms were reported regarding the genitourinary system. Derm: No deficits noted. Musculoskeletal: No deficits noted. Historical: - Allergies: 16:27 No Known Allergies; bp - Home Meds: 16:27 None [Active]; bp - PMHx: 16:27 None; bp - PSHx: 16:27 leg FX; bp - Immunization history:: Adult Immunizations up to date. - Social history:: Smoking status: unknown. Screenin:28 [facility] ED Fall Risk Assessment (Adult) History of falling in the last 3 months, bp including since admission No falls in past 3 months (0 pts). Abuse screen: Denies threats or abuse. Denies injuries from another. Nutritional screening: No deficits noted. Tuberculosis screening: No symptoms or risk factors identified. Assessment: 16:28 General: SEE TRIAGE NOTE. bp 17:39 Reassessment: DC ON HOLD FOR IVF COMPLETION. bp Vital Signs: 16:26 BP 133 / 86; Pulse 93; Resp 16; Temp 98; Pulse Ox 97% ; bp ED Course: 16:26 Patient arrived in ED. bp 16:27 Daniel Mckeon MD is Attending Physician. bs3 16:27 Triage completed. bp 16:27 Arm band placed on. bp 16:28 Patient has correct armband on for positive identification. Bed in low position. Call bp light in reach. Side rails up X2. 16:29 Jerel Forbes, RN is Primary Nurse. bp 16:46 Inserted saline lock: 18 gauge in left antecubital area, using aseptic technique. Blood bp collected. 17:09 Attending Physician role handed off by Daniel Mckeon MD sp3 17:09 Andrew Eli MD is Attending Physician. sp3 18:28 IV discontinued, intact, bleeding controlled, No redness/swelling at site. Pressure mb9 dressing applied. Administered Medications: 16:45 Drug: NS 0.9% IV 1000 ml Route: IV; Rate: 1 bolus; Site: left antecubital; bp 16:45 Drug: NS 0.9% IV 1000 ml Route: IV; Rate: 1 bolus; Site: left antecubital; bp Medication: 16:28 VIS not applicable for this client. bp Outcome: 17:16 Discharge ordered by . sp3 18:25 Patient left the ED. bp 18:29 Discharged to home ambulatory. mb9 18:29 Condition: stable 18:29 Discharge instructions given to patient, Instructed on discharge instructions, follow up and referral plans. Demonstrated understanding of instructions, follow-up care. 18:29 Patient left the ED. mb9 Signatures: Jerel Forbes, RN RN bp Andrew Eli MD MD sp3 Daniel Mckeon MD MD bs3 Aydee Liang RN RN mb9
--- NOTE | 2022-07-24 17:17 | EDPHYS ---
Physician Documentation [facility] Name: Alberto Lynn Age: 32 yrs Sex: Male : 1990 Arrival Date: 07/24/2022 Time: 16:24 Bed 4 Private MD: ED Physician Andrew Eli HPI: 07/24 16:29 This 32 yrs old Male presents to ER via EMS with complaints of MUSCLE CRAMPS. 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 Historical: - Allergies: 16:27 No Known Allergies; bp - Home Meds: 16:27 None [Active]; bp - PMHx: 16:27 None; bp - PSHx: 16:27 leg FX; bp - Immunization history:: Adult Immunizations up to date. - Social history:: Smoking status: unknown. ROS: 16:30 Constitutional: Negative for fever, chills bs3 16:30 All other systems are negative. Exam: 16:30 Constitutional: This is a well developed, well nourished patient who is awake, alert, bs3 and in no acute distress. Head/Face: Normocephalic, atraumatic. Eyes: Pupils equal round and reactive to light, extra-ocular motions intact. Lids and lashes normal. ENT: mmm, no posterior phyarngeal erythema Neck: Trachea midline, no thyromegaly, no neck stiffness Cardiovascular: Regular rate and rhythm with a normal S1 and S2. symmetric pulses in upper extremities Skin: Warm, dry with normal turgor. Normal color with no rashes, no lesions, and no evidence of cellulitis. MS/ Extremity: Pulses equal, no cyanosis. Neurovascular intact. Full, normal range of motion. All of his compartments are soft he has no visible swelling is no focal tenderness over his muscles Neuro: Awake and alert, GCS 15, oriented to person, place, time, and situation. Cranial nerves II-XII grossly intact. Motor strength 5/5 in all extremities. Sensory grossly intact. Psych: Awake, alert, with orientation to person, place and time. Behavior, mood, and affect are within normal limits. Vital Signs: 16:26 BP 133 / 86; Pulse 93; Resp 16; Temp 98; Pulse Ox 97% ; bp MDM: 16:28 Patient medically screened. 3 16:30 Data reviewed: vital signs, nurses notes. ED course: Patient with diffuse cramping in bs3 the setting of significant exertion will rule out rhabdo although my suspicion is very low based on the history and physical we will hydrate Will evaluate for hypomagnesemia or other life-threatening electrolyte abnormality. 17:16 ED course: CK levels are normal as are the remainder of his labs. We will discharge sp3 patient home safely after his IV fluids are complete.. 07/24 16:28 Order name: CBC with Diff; Complete Time: 17:16 3 07/24 16:28 Order name: Comprehensive Metabolic Panel; Complete Time: 17:16 bs3 07/24 16:28 Order name: Urinalysis w/ reflexes; Complete Time: 17:16 bs3 07/24 16:28 Order name: CK; Complete Time: 17:16 3 07/24 16:30 Order name: Magnesium bs3 Administered Medications: 16:45 Drug: NS 0.9% IV 1000 ml Route: IV; Rate: 1 bolus; Site: left antecubital; bp 16:45 Drug: NS 0.9% IV 1000 ml Route: IV; Rate: 1 bolus; Site: left antecubital; bp Disposition Summary: 07/24/22 17:16 Discharge Ordered Location: Home sp3 Problem: new sp3 Symptoms: have improved sp3 Condition: Stable sp3 Diagnosis - Myalgia sp3 Followup: bs3 - With: Private Physician - When: 1 week - Reason: Re-evaluation by your physician Discharge Instructions: - Discharge Summary Sheet bs3 - Muscle Pain, Adult bs3 Forms: - Medication Reconciliation Form sp3 - Thank You Letter sp3 - Antibiotic Education sp3 - Prescription Opioid Use sp3 Signatures: Dispatcher [employer] EDMS Jerel Forbes RN RN bp Andrew Eli MD MD sp3 Daniel Mckeon MD MD bs3 Corrections: (The following items were deleted from the chart) 16:30 16:29 32-year-old male no past pertinent medical history of that has been seen multiple bs3 times for pain in different parts of his body presents with what he states is cramping to his muscles. bs3
[2022-07-24 18:40] VITALS: BP 133/86; TEMP 98; O2SAT 97
== END 2022-07-24 18:29 | disposition home or self-care (01) ==
LOC: ER 16:24
DX: M79.10 Myalgia, unspecified site (principal)
CPT/HCPCS: 36415; 80053; 81001; 82550; 83735; 85025; 99284; J7030

== ENCOUNTER 2022-07-25 18:50 | Emergency (ER) | payer SELFPAY ==
[2022-07-25] MEDS ORDERED: KETOROLAC 30 MG/ML INJ ONE (19:40)
[2022-07-25] MEDS ORDERED: CYCLOBENZAPRINE 10 MG TAB ONE (19:44)
--- NOTE | 2022-07-25 20:08 | EDPHYS ---
Physician Documentation [facility] Name: Alberto Lynn Age: 32 yrs Sex: Male : 1990 Arrival Date: 07/25/2022 Time: 18:50 Bed 19 Private MD: ED Physician Andrew Eli HPI: 07/25 19:28 This 32 yrs old Male presents to ER via EMS with complaints of Muscle spasms. cp 19:28 The patient presents with pain muscle spasms of low back and upper legs. Onset: The cp symptoms/episode began/occurred 3 day(s) ago. Associated signs and symptoms: Pertinent positives: low back pain since this morning. 19:28 The pain does not radiate. Patient denies any injury, denies numbness/tingling, denies cp urinary and/or bowel incontinence, denies weakness of legs. Historical: - Allergies: 19:01 No Known Allergies; cm10 - Home Meds: 19:01 None [Active]; cm10 - PMHx: 19:01 None; cm10 - Immunization history:: Adult Immunizations unknown. - Social history:: Smoking status: Patient reports the use of cigarette tobacco products, denies chronic smoking, but will smoke occasionally, Patient uses. ROS: 19:35 Constitutional: Negative for body aches, chills, fever, poor PO intake. cp 19:35 Eyes: Negative for injury, pain, redness, and discharge. cp 19:35 Neck: Negative for pain with movement, pain at rest, stiffness. 19:35 Cardiovascular: Negative for chest pain, edema, palpitations. 19:35 Respiratory: Negative for cough, shortness of breath, wheezing. 19:35 Abdomen/GI: Negative for abdominal pain, nausea, vomiting, and diarrhea, constipation, bowel incontinence. 19:35 Back: Positive for pain at rest, of the low back area, Negative for injury or acute deformity, decreased range of motion. 19:35 : Negative for urinary symptoms, difficulty urinating, bladder incontinence, testicular pain 19:35 Neuro: Negative for headache, numbness, tingling, weakness. 19:35 All other systems are negative. Exam: 19:40 Constitutional: The patient appears in no acute distress, alert, awake, comfortable, cp non-toxic, well developed, well nourished. 19:40 Head/Face: Normocephalic, atraumatic. cp 19:40 Eyes: Periorbital structures: appear normal, Conjunctiva: normal, no exudate, no injection, Sclera: no appreciated abnormality, Lids and lashes: appear normal, bilaterally. 19:40 ENT: External ear(s): are unremarkable, Nose: is normal, Mouth: Lips: moist, Oral mucosa: pink and intact, moist. 19:40 Neck: ROM/movement: is normal, is supple, without pain, no range of motions limitations. 19:40 Chest/axilla: Inspection: normal. 19:40 Cardiovascular: Rate: normal, Rhythm: regular. 19:40 Respiratory: the patient does not display signs of respiratory distress, Respirations: normal, no use of accessory muscles, no retractions, labored breathing, is not present, Breath sounds: are clear throughout, no decreased breath sounds, no stridor, no wheezing. 19:40 Abdomen/GI: Inspection: abdomen appears normal, Palpation: abdomen is soft and non-tender, in all quadrants. 19:40 Back: pain, that is mild, of the low back area, ROM is normal, CVA tenderness, is absent, Straight leg raises: of both lower extremities does not illicit pain. 19:40 Neuro: Orientation: to person, place \T\ time. Mentation: is normal, Motor: moves all fours, strength is normal, Sensation: is normal. Vital Signs: 18:59 BP 137 / 66; Pulse 66; Resp 16; Temp 97.4(TE); Pulse Ox 100% ; Weight 89.81 kg; Height cm10 5 ft. 11 in. ; Pain 10/10; 19:35 BP 117 / 66; Pulse 68; Resp 16 S; Pulse Ox 97% on R/A; nj1 19:35 Pain 10/10; nj1 20:20 BP 122 / 69; Pulse 57; Resp 16; Pulse Ox 97% on R/A; Pain 9/10; nj1 18:59 Body Mass Index 27.62 (89.81 kg, 180.34 cm) cm10 18:59 Pain Scale: Adult cm10 19:35 Pain Scale: Adult nj1 20:20 Pain Scale: Adult nj1 MDM: 19:18 Patient medically screened. cp 19:40 Differential diagnosis: ruptured disc, sciatica, cauda equina, spinal stenosis, cp musculoskeletal pain. 20:06 Data reviewed: vital signs, nurses notes. cp 20:06 I considered the following discharge prescriptions or medication management in the cp emergency department Medications were administered in the Emergency Department. See MAR. Counseling: I had a detailed discussion with the patient and/or guardian regarding: the historical points, exam findings, and any diagnostic results supporting the discharge/admit diagnosis. Response to treatment: the patient's symptoms have mildly improved after treatment, and as a result, I will discharge patient. Administered Medications: 19:35 Not Given (not available): Baclofen PO 10 mg PO once cp 19:35 Drug: Cyclobenzaprine PO 10 mg Route: PO; nj1 20:20 Follow up: Response: No adverse reaction nj1 19:38 Drug: Ketorolac IM 30 mg Route: IM; Site: right gluteus; nj1 20:20 Follow up: Response: No adverse reaction nj1 Disposition Summary: 07/25/22 20:07 Discharge Ordered Location: Home cp Problem: new cp Symptoms: have improved cp Condition: Stable cp Diagnosis - Low back pain cp Followup: cp - With: Private Physician - When: 2 - 3 days - Reason: Recheck today's complaints Discharge Instructions: - Discharge Summary Sheet cp - Acute Back Pain, Adult cp - Heat Therapy cp - Back Exercises cp Forms: - Medication Reconciliation Form cp - Thank You Letter cp - Antibiotic Education cp - Prescription Opioid Use cp Prescriptions: - Cyclobenzaprine 10 mg Oral Tablet - take 1 tablet by ORAL route every 8 hours As needed; 30 tablet; Refills: 0, cp Product Selection Permitted - Diclofenac Sodium 75 mg Oral Tablet Sustained Release - take 1 tablet by ORAL route 2 times per day; 30 tablet; Refills: 0, Product cp Selection Permitted Signatures: Curtis Quintanilla PA PA cp Padma Hall RN RN nj1 Jailyn Meredith RN RN cm10
--- NOTE | 2022-07-25 20:08 | ER ---
Nurse's Notes [facility] Name: Alberto Lynn Age: 32 yrs Sex: Male : 1990 Arrival Date: 07/25/2022 Time: 18:50 Bed 19 Private MD: Diagnosis: Low back pain Presentation: 07/25 18:59 Chief complaint: Patient states: Pt presenting via EMS for muscle spasms X3 days. Pt in cm10 NAD, ambulatory with steady gait. Coronavirus screen: Vaccine status: Patient reports being unvaccinated. Client denies travel out of the [place] in the last 14 days. At this time, the client does not indicate any symptoms associated with coronavirus-19. Ebola Screen: No symptoms or risks identified at this time. Initial Sepsis Screen: Does the patient meet any 2 criteria? No. Patient's initial sepsis screen is negative. Does the patient have a suspected source of infection? No. Patient's initial sepsis screen is negative. Risk Assessment: Do you want to hurt yourself or someone else? Patient reports no desire to harm self or others. Onset of symptoms was July 22, 2022. 18:59 Method Of Arrival: EMS: [facility] 18:59 Acuity: ZAHIDA 5 cm10 Triage Assessment: 19:01 General: Appears in no apparent distress. comfortable, Behavior is calm, cooperative. cm10 Historical: - Allergies: 19:01 No Known Allergies; cm10 - Home Meds: 19:01 None [Active]; cm10 - PMHx: 19:01 None; cm10 - Immunization history:: Adult Immunizations unknown. - Social history:: Smoking status: Patient reports the use of cigarette tobacco products, denies chronic smoking, but will smoke occasionally, Patient uses. Screenin:20 [facility] ED Fall Risk Assessment (Adult) History of falling in the last 3 months, nj1 including since admission No falls in past 3 months (0 pts) Confusion or Disorientation No (0 pts) Intoxicated or Sedated No (0 pts) Impaired Gait No (0 pts) Mobility Assist Device Used No (0 pt) Altered Elimination No (0 pt) Score/Fall Risk Level 0 - 2 = Low Risk Oriented to surroundings, Maintained a safe environment, Educated pt \T\ family on fall prevention, incl call for assistance when getting out of bed. Abuse screen: Denies threats or abuse. Denies injuries from another. Nutritional screening: No deficits noted. Tuberculosis screening: No symptoms or risk factors identified. Assessment: 19:34 General: Appears comfortable, Behavior is calm, cooperative. Pain: Complains of pain in nj1 muscle spasm on the back. Pain does not radiate. Pain currently is 10 out of 10 on a pain scale. Is intermittent, Alleviated by medications. Neuro: Level of Consciousness is awake, alert, obeys commands, Oriented to person, place, time, situation. Cardiovascular: Capillary refill < 3 seconds Patient's skin is warm and dry. Respiratory: Airway is patent Respiratory effort is even, unlabored, Respiratory pattern is regular, symmetrical. GI: No signs and/or symptoms were reported involving the gastrointestinal system. : No signs and/or symptoms were reported regarding the genitourinary system. Musculoskeletal: Circulation, motion, and sensation intact. Range of motion: intact in all extremities, Reports pain in back. 20:21 Reassessment: Patient appears in no apparent distress at this time. Patient and/or nj1 family updated on plan of care and expected duration. Pain level reassessed. Patient is alert, oriented x 3, equal unlabored respirations, skin warm/dry/pink. Vital Signs: 18:59 BP 137 / 66; Pulse 66; Resp 16; Temp 97.4(TE); Pulse Ox 100% ; Weight 89.81 kg; Height cm10 5 ft. 11 in. ; Pain 10/10; 19:35 BP 117 / 66; Pulse 68; Resp 16 S; Pulse Ox 97% on R/A; nj1 19:35 Pain 10/10; nj1 20:20 BP 122 / 69; Pulse 57; Resp 16; Pulse Ox 97% on R/A; Pain 9/10; nj1 18:59 Body Mass Index 27.62 (89.81 kg, 180.34 cm) cm10 18:59 Pain Scale: Adult cm10 19:35 Pain Scale: Adult nj1 20:20 Pain Scale: Adult nj1 ED Course: 18:53 Patient arrived in ED. mr 19:01 Triage completed. cm10 19:01 Arm band placed on Patient placed in waiting room. cm10 19:18 Curtis Quintanilla PA is PHCP. cp 19:18 Andrew Eli MD is Attending Physician. cp 19:20 Patient has correct armband on for positive identification. Bed in low position. Call nj1 light in reach. Side rails up X 1. 19:33 Padma Hall, RN is Primary Nurse. nj1 20:21 No provider procedures requiring assistance completed. nj1 20:22 Patient did not have IV access during this emergency room visit. nj1 Administered Medications: 19:35 Not Given (not available): Baclofen PO 10 mg PO once cp 19:35 Drug: Cyclobenzaprine PO 10 mg Route: PO; nj1 20:20 Follow up: Response: No adverse reaction nj1 19:38 Drug: Ketorolac IM 30 mg Route: IM; Site: right gluteus; nj1 20:20 Follow up: Response: No adverse reaction nj1 Medication: 20:22 VIS not applicable for this client. nj1 Outcome: 20:07 Discharge ordered by . cp 20:22 Discharged to home ambulatory. nj1 20:22 Condition: stable 20:22 Discharge instructions given to patient, Instructed on discharge instructions, follow up and referral plans. medication usage, Demonstrated understanding of instructions, follow-up care, medications, Prescriptions given X 2. 20:22 Patient left the ED. nj1 Signatures: Aydee France Corey, ROHAN PA Padma Hall, RN RN nj1 Jailyn Meredith RN RN cm10
[2022-07-25 21:20] VITALS: TEMP 97.4
[2022-07-25 21:22] VITALS: O2SAT 97
[2022-07-25 21:23] VITALS: BP 122/69
== END 2022-07-25 20:22 | disposition home or self-care (01) ==
LOC: ER 18:50
DX: M54.50 Low back pain, unspecified (principal); F17.210 Nicotine dependence, cigarettes, uncomplicated
CPT/HCPCS: 96372; 99284

== ENCOUNTER 2022-08-09 18:03 | Emergency (ER) | payer SELFPAY ==
[2022-08-09 18:41] LABS: Absolute Lymphocytes (CBC) 1.2 K/uL (0.7-4.9); Hematocrit 43.3 % (39.6-49.0); Lymphocytes % 20.1 % (15.3-44.8); MCV 89.9 fL (80-100); MPV 8.2 fL (7.6-11.3); RBC Red Blood Cell Count 4.82 M/uL (4.33-5.43)
[2022-08-09 18:44] LABS: Specific Gravity 1.022 (1.005-1.030); Urine Bacteria None Seen /HPF (<20); Urine Bilirubin NEGATIVE (Negative); Urine Blood Negative (Negative); Urine Clarity Clear (Clear); Urine Color Yellow (Yellow); Urine Glucose NEGATIVE (Negative); Urine Mucus 2+ /HPF (None Seen); Urine Protein TRACE (Negative); Urine RBC None Seen /HPF (None Seen); Urine Urobilinogen 1+ (Normal); Urine pH 5.5 (5.0-7.0)
[2022-08-09] MEDS ORDERED: NA CHLORIDE 0.9% 1,000 ML ONE (18:50)
[2022-08-09 18:53] LABS: Potassium 3.6 mEq/L (3.5-5.1)
--- NOTE | 2022-08-09 18:59 | ER ---
Nurse's Notes [facility] Name: Alberto Lynn Age: 32 yrs Sex: Male : 1990 Arrival Date: 08/09/2022 Time: 18:03 Bed 13 Private MD: Diagnosis: Weakness Presentation: 08/09 18:36 Chief complaint: Patient states: I feel dehydrated. Coronavirus screen: Vaccine status: os Patient reports receiving the 2nd dose of the covid vaccine. Ebola Screen: Patient negative for fever greater than or equal to 101.5 degrees Fahrenheit, and additional compatible Ebola Virus Disease symptoms. Initial Sepsis Screen: Does the patient meet any 2 criteria? No. Patient's initial sepsis screen is negative. Does the patient have a suspected source of infection? No. Patient's initial sepsis screen is negative. Risk Assessment: Do you want to hurt yourself or someone else? Patient reports no desire to harm self or others. Onset of symptoms was August 09, 2022. 18:36 Method Of Arrival: EMS: [facility] os 18:36 Acuity: ZAHIDA 4 os Triage Assessment: 18:39 General: Appears in no apparent distress. Behavior is calm, cooperative, appropriate os for age. Pain: Denies pain. Vital Signs: 18:29 BP 125 / 70; Pulse 98; Resp 17; Temp 99.2; Pulse Ox 98% on R/A; rs5 ED Course: 18:04 Patient arrived in ED. kb 18:04 [facility] kb 18:05 Curtis Caban MD is Attending Physician. kb 18:36 Sebastien Zaidi, YI is Primary Nurse. os 18:37 Triage completed. os 18:39 CPK Sent. os 18:39 Basic Metabolic Panel Sent. os 18:39 CBC with Diff Sent. os 18:39 Urinalysis w/ reflexes Sent. os 19:13 IV discontinued, intact, bleeding controlled, No redness/swelling at site. Pressure mb9 dressing applied. Administered Medications: 18:40 Drug: NS 0.9% IV 1000 ml Route: IV; Rate: 1000 ml; Site: right forearm; os Outcome: 18:59 Discharge ordered by . kb 19:13 Discharged to home ambulatory. mb9 19:13 Condition: stable 19:13 Discharge instructions given to patient, Instructed on discharge instructions, follow up and referral plans. Demonstrated understanding of instructions, follow-up care. 19:13 Patient left the ED. mb9 Signatures: Kristy Dumont, BRAEDEN WEBB-Aydee Bkaer RN RN mb9 Reginald Casanova rs5 Sebastien Zaidi RN RN os
--- NOTE | 2022-08-09 18:59 | EDPHYS ---
Physician Documentation [facility] Name: Alberto Lynn Age: 32 yrs Sex: Male : 1990 Arrival Date: 08/09/2022 Time: 18:03 Bed 13 Private MD: ED Physician Curtis Caban HPI: 08/09 18:33 This 32 yrs old Male presents to ER via Unassigned with complaints of weakness, kb dehydration. 18:34 The patient presents with generalized weakness. Onset: The symptoms/episode kb began/occurred 3 day(s) ago. Context: occurred at home. Modifying factors: The symptoms are alleviated by nothing, the symptoms are aggravated by nothing. Associated signs and symptoms: Pertinent positives: nausea, weakness. Severity of symptoms: At their worst the symptoms were moderate in the emergency department the symptoms are unchanged. Patient's baseline: Neuro: alert and fully oriented, Motor: no deficits, Ambulation: walks without assistance, Speech: normal. The patient has not experienced similar symptoms in the past. The patient has not recently seen a physician. Pt reports weakness, nausea and feeling dehydrated since Friday night. States he has been off of work since then, but it hasn't gotten any better. ROS: 18:33 Constitutional: Negative for fever, chills, and weight loss. kb 18:33 Neuro: Positive for weakness. 18:33 All other systems are negative. Exam: 18:33 Constitutional: This is a well developed, well nourished patient who is awake, alert, kb and in no acute distress. Head/Face: Normocephalic, atraumatic. ENT: Moist Mucous membranes Cardiovascular: Regular rate and rhythm with a normal S1 and S2. No gallops, murmurs, or rubs. No pulse deficits. Respiratory: Respirations even and unlabored. No increased work of breathing. Talking in full sentences Abdomen/GI: Soft, non-tender. No distention Skin: Warm, dry with normal turgor. Normal color. MS/ Extremity: Pulses equal, no cyanosis. Neurovascular intact. Full, normal range of motion. Neuro: Awake and alert, GCS 15, oriented to person, place, time, and situation. Moves all extremities. Normal gait. Vital Signs: 18:29 BP 125 / 70; Pulse 98; Resp 17; Temp 99.2; Pulse Ox 98% on R/A; rs5 MDM: 18:05 Patient medically screened. kb 18:37 Data reviewed: vital signs, nurses notes. kb 18:58 Differential diagnosis: cardiac arrhythmia, generalized weakness, hypovolemia, kb near-syncope. Historians other than the Patient: EMS: [facility]. Counseling: I had a detailed discussion with the patient and/or guardian regarding: the historical points, exam findings, and any diagnostic results supporting the discharge/admit diagnosis, lab results, the need for outpatient follow up, a family practitioner, to return to the emergency department if symptoms worsen or persist or if there are any questions or concerns that arise at home. 08/09 18:05 Order name: CBC with Diff; Complete Time: 18:49 kb 08/09 18:05 Order name: Basic Metabolic Panel; Complete Time: 18:58 kb 08/09 18:05 Order name: CPK; Complete Time: 18:58 kb 08/09 18:05 Order name: Urinalysis w/ reflexes; Complete Time: 18:46 kb 08/09 18:05 Order name: IV Start; Complete Time: 18:39 kb 08/09 18:05 Order name: Orthostatics; Complete Time: 18:39 kb Administered Medications: 18:40 Drug: NS 0.9% IV 1000 ml Route: IV; Rate: 1000 ml; Site: right forearm; os Disposition Summary: 08/09/22 18:59 Discharge Ordered Location: Home kb Condition: Stable kb Diagnosis - Weakness kb Followup: kb - With: Emergency Department - When: As needed - Reason: Worsening of condition Followup: kb - With: Private Physician - When: 2 - 3 days - Reason: Recheck today's complaints, Continuance of care, Re-evaluation by your physician Discharge Instructions: - Discharge Summary Sheet kb - Weakness, [id number] kb Forms: - Medication Reconciliation Form kb - Thank You Letter kb - Antibiotic Education kb - Prescription Opioid Use kb - MedHost_Portal_[email or web address] kb Signatures: Dispatcher [employer] Kristy Garcia FNP-C FNP-Ckb Sotiri, Orest, RN RN os
[2022-08-09 19:33] VITALS: BP 125/70; TEMP 99.2; O2SAT 98
== END 2022-08-09 19:13 | disposition home or self-care (01) ==
LOC: ER 18:03
DX: R53.1 Weakness (principal)
CPT/HCPCS: 36415; 80048; 81001; 82550; 85025; 99284; J7030

== ENCOUNTER 2022-08-14 14:52 | Emergency (ER) | payer SELFPAY ==
[2022-08-14 15:59] LABS: Specific Gravity > 1.030 (1.005-1.030); Urine Bacteria None Seen /HPF (<20); Urine Bilirubin NEGATIVE (Negative); Urine Blood Negative (Negative); Urine Clarity Clear (Clear); Urine Color Yellow (Yellow); Urine Crystals Unidentified Few /HPF (None Seen); Urine Glucose NEGATIVE (Negative); Urine Mucus 3+ /HPF (None Seen); Urine Protein 1+ (Negative); Urine RBC <5 /HPF (None Seen); Urine Urobilinogen 1+ (Normal)
[2022-08-14] MEDS ORDERED: NA CHLORIDE 0.9% 1,000 ML ONE (16:04)
[2022-08-14 16:31] LABS: Potassium 3.5 mEq/L (3.5-5.1)
--- NOTE | 2022-08-14 16:36 | EDPHYS ---
Physician Documentation [facility] Name: Alberto Lynn Age: 32 yrs Sex: Male : 1990 Arrival Date: 08/14/2022 Time: 14:52 Bed 9 Private MD: ED Physician Toni Nieto HPI: 08/14 15:11 This 32 yrs old Male presents to ER via EMS with complaints of Dehydration. kb 15:11 Pt reports he started feeling dehydrated at 0800 today. States he hasn't been drinking kb a lot of water lately. Was seen recently for similar complaint and states the IV fluids helped for a few days. Onset: The symptoms/episode began/occurred yesterday, at 08:00. Severity of symptoms: At their worst the symptoms were mild in the emergency department the symptoms are unchanged. The patient has not experienced similar symptoms in the past. The patient has not recently seen a physician. Historical: - Allergies: 14:58 No Known Allergies; ld1 - Home Meds: 14:58 None [Active]; ld1 - PMHx: 14:58 None; ld1 - PSHx: 14:58 leg FX; ld1 - Immunization history:: Adult Immunizations up to date. - Social history:: Smoking status: Patient denies any tobacco usage or history of. Patient/guardian denies using alcohol. ROS: 15:10 Constitutional: Negative for fever, chills, and weight loss. kb 15:10 All other systems are negative. Exam: 15:10 Constitutional: This is a well developed, well nourished patient who is awake, alert, kb and in no acute distress. Head/Face: Normocephalic, atraumatic. ENT: Moist Mucous membranes Cardiovascular: Regular rate and rhythm with a normal S1 and S2. No gallops, murmurs, or rubs. No pulse deficits. Respiratory: Respirations even and unlabored. No increased work of breathing. Talking in full sentences Skin: Warm, dry with normal turgor. Normal color. MS/ Extremity: Pulses equal, no cyanosis. Neurovascular intact. Full, normal range of motion. Neuro: Awake and alert, GCS 15, oriented to person, place, time, and situation. Moves all extremities. Normal gait. Vital Signs: 14:57 BP 131 / 85; Pulse 100; Resp 18; Temp 98.1(O); Pulse Ox 100% ; Weight 77.11 kg; Height ld1 5 ft. 10 in. ; Pain 0/10; 15:27 BP 140 / 88 LA Supine (auto/reg); Pulse 83; Pulse Ox 99% on R/A; mb4 15:29 BP 141 / 96 LA Sitting (auto/reg); Pulse 91; Pulse Ox 99% on R/A; mb4 15:31 BP 118 / 78 LA Standing (auto/reg); Pulse 104; Pulse Ox 99% on R/A; mb4 17:39 BP 131 / 87; Pulse 86; Resp 16; Pulse Ox 100% on R/A; Pain 0/10; cm10 14:57 Body Mass Index 24.39 (77.11 kg, 177.8 cm) ld1 14:57 Pain Scale: Adult ld1 17:39 Pain Scale: Adult cm10 MDM: 14:56 Patient medically screened. kb 15:10 Data reviewed: vital signs, nurses notes. kb 15:12 Differential Diagnosis dehydration, electrolyte abnormality. Historians other than the Patient: EMS: [facility]. 15:41 ED course: orthostatic positive - will give IV fluids. kb 16:35 Counseling: I had a detailed discussion with the patient and/or guardian regarding: the historical points, exam findings, and any diagnostic results supporting the discharge/admit diagnosis, lab results, the need for outpatient follow up, a family practitioner, to return to the emergency department if symptoms worsen or persist or if there are any questions or concerns that arise at home. 08/14 14:57 Order name: Urinalysis w/ reflexes; Complete Time: 16:02 kb 08/14 15:40 Order name: Basic Metabolic Panel; Complete Time: 16:35 kb 08/14 14:57 Order name: Orthostatics; Complete Time: 15:26 kb 08/14 14:57 Order name: PO challenge; Complete Time: 15:26 kb 08/14 15:40 Order name: IV Start; Complete Time: 16:04 kb Administered Medications: 16:04 Drug: NS 0.9% IV 1000 ml Route: IV; Rate: 1000 ml; Site: right forearm; cm10 17:40 Follow up: Response: No adverse reaction; IV Status: Completed infusion; IV Intake: cm10 1000ml Disposition: 18:51 Co-signature as Attending Physician, Toni Nieto MD I reviewed the patient's care rn provided by the Advanced Practice Provider and agree with the diagnosis and treatment plan. Disposition Summary: 08/14/22 16:36 Discharge Ordered Location: Home kb Condition: Stable kb Diagnosis - Dehydration kb Followup: kb - With: Emergency Department - When: As needed - Reason: Worsening of condition Followup: kb - With: Private Physician - When: 2 - 3 days - Reason: Recheck today's complaints, Continuance of care, Re-evaluation by your physician Discharge Instructions: - Discharge Summary Sheet kb - Dehydration, Adult kb Forms: - Medication Reconciliation Form kb - Thank You Letter kb - Antibiotic Education kb - Prescription Opioid Use kb - MedHost_Portal_[email or web address] kb Signatures: Dispatcher [employer] EDMS Kristy Dumont, HOUSE DESIGNER-C HOUSE DESIGNER-Toni Hanna MD MD rn Sims, Lauren, RN RN ld1 Jailyn Meredith, RN RN cm10
--- NOTE | 2022-08-14 16:36 | ER ---
Nurse's Notes [facility] Name: Alberto Lynn Age: 32 yrs Sex: Male : 1990 Arrival Date: 08/14/2022 Time: 14:52 Bed 9 Private MD: Diagnosis: Dehydration Presentation: 08/14 14:57 Chief complaint: Patient states: toned out to [place] [place] [employer] - pt went to police ld1 department stating "I feel dehydrated.". Coronavirus screen: At this time, the client does not indicate any symptoms associated with coronavirus-19. Ebola Screen: No symptoms or risks identified at this time. Initial Sepsis Screen: Does the patient meet any 2 criteria? No. Patient's initial sepsis screen is negative. Does the patient have a suspected source of infection? No. Patient's initial sepsis screen is negative. Risk Assessment: Do you want to hurt yourself or someone else? Patient reports no desire to harm self or others. Onset of symptoms was August 14, 2022 at 14:58. 14:57 Method Of Arrival: EMS: [facility] ld1 14:57 Acuity: ZAHIDA 3 ld1 Triage Assessment: 14:58 General: Appears in no apparent distress. comfortable, Behavior is calm, cooperative, ld1 appropriate for age. Pain: Denies pain. EENT: No signs and/or symptoms were reported regarding the EENT system. Neuro: Level of Consciousness is awake, alert, obeys commands, Oriented to person, place, time, situation. Cardiovascular: Capillary refill < 3 seconds Patient's skin is warm and dry. Respiratory: Airway is patent Respiratory effort is even, unlabored. GI: Abdomen is flat, non-distended. : No signs and/or symptoms were reported regarding the genitourinary system. Derm: No signs and/or symptoms reported regarding the dermatologic system. Musculoskeletal: No signs and/or symptoms reported regarding the musculoskeletal system. Historical: - Allergies: 14:58 No Known Allergies; ld1 - Home Meds: 14:58 None [Active]; ld1 - PMHx: 14:58 None; ld1 - PSHx: 14:58 leg FX; ld1 - Immunization history:: Adult Immunizations up to date. - Social history:: Smoking status: Patient denies any tobacco usage or history of. Patient/guardian denies using alcohol. Screenin:40 [facility] ED Fall Risk Assessment (Adult) History of falling in the last 3 months, cm10 including since admission No falls in past 3 months (0 pts) Confusion or Disorientation No (0 pts) Intoxicated or Sedated No (0 pts) Impaired Gait No (0 pts) Mobility Assist Device Used No (0 pt) Altered Elimination No (0 pt) Score/Fall Risk Level 0 - 2 = Low Risk Oriented to surroundings, Maintained a safe environment. Abuse screen: Denies threats or abuse. Denies injuries from another. Nutritional screening: No deficits noted. Tuberculosis screening: No symptoms or risk factors identified. Assessment: 17:39 Reassessment: Patient appears in no apparent distress at this time. No changes from cm10 previously documented assessment. Patient and/or family updated on plan of care and expected duration. Pain level reassessed. Patient is alert, oriented x 3, equal unlabored respirations, skin warm/dry/pink. Patient denies pain at this time. Patient states feeling better. Vital Signs: 14:57 BP 131 / 85; Pulse 100; Resp 18; Temp 98.1(O); Pulse Ox 100% ; Weight 77.11 kg; Height ld1 5 ft. 10 in. ; Pain 0/10; 15:27 BP 140 / 88 LA Supine (auto/reg); Pulse 83; Pulse Ox 99% on R/A; mb4 15:29 BP 141 / 96 LA Sitting (auto/reg); Pulse 91; Pulse Ox 99% on R/A; mb4 15:31 BP 118 / 78 LA Standing (auto/reg); Pulse 104; Pulse Ox 99% on R/A; mb4 17:39 BP 131 / 87; Pulse 86; Resp 16; Pulse Ox 100% on R/A; Pain 0/10; cm10 14:57 Body Mass Index 24.39 (77.11 kg, 177.8 cm) ld1 14:57 Pain Scale: Adult ld1 17:39 Pain Scale: Adult cm10 ED Course: 14:54 Patient arrived in ED. rg4 14:56 Kristy Dumont [facility]NP-C [facility] kb 14:56 Toni Nieto MD is Attending Physician. kb 14:58 Triage completed. ld1 14:58 Arm band placed on right wrist. ld1 15:27 Masoud, Jailyn, RN is Primary Nurse. cm10 15:54 Urinalysis w/ reflexes Sent. zm 16:04 Patient has correct armband on for positive identification. Bed in low position. Call cm10 light in reach. 16:04 Basic Metabolic Panel Sent. cm10 16:04 Initial lab(s) drawn, by ak, sent to lab. Inserted saline lock: 20 gauge in right cm10 forearm, using aseptic technique. 16:47 PO fluids given. cm10 17:38 No provider procedures requiring assistance completed. IV discontinued, intact, cm10 bleeding controlled, No redness/swelling at site. Pressure dressing applied. Administered Medications: 16:04 Drug: NS 0.9% IV 1000 ml Route: IV; Rate: 1000 ml; Site: right forearm; cm10 17:40 Follow up: Response: No adverse reaction; IV Status: Completed infusion; IV Intake: cm10 1000ml Medication: 17:39 VIS not applicable for this client. cm10 Intake: 17:40 IV: 1000ml; Total: 1000ml. cm10 Outcome: 16:36 Discharge ordered by . kb 17:40 Discharged to home ambulatory. cm10 17:40 Condition: good 17:40 Discharge instructions given to patient, Instructed on discharge instructions, follow up and referral plans. Demonstrated understanding of instructions, follow-up care. 17:40 Patient left the ED. cm10 Signatures: Kristy Dumont, BRAEDEN DOLANP-Brooklyn Sams rg4 Autumn Purcell mb4 Nely Foster RN RN Evie Bahena Clarissa, YI RN cm10
[2022-08-14 18:57] VITALS: TEMP 98.1
[2022-08-14 19:02] VITALS: BP 131/87; O2SAT 100
== END 2022-08-14 17:40 | disposition home or self-care (01) ==
LOC: ER 14:52
DX: E86.0 Dehydration (principal)
CPT/HCPCS: 36415; 80048; 81001; 96360; 96361; 99284; J7030

== ENCOUNTER 2022-08-18 09:26 | Emergency (ER) | payer SELFPAY ==
--- NOTE | 2022-08-18 09:49 | EDPHYS ---
Physician Documentation [facility] Name: Alberto Lynn Age: 32 yrs Sex: Male : 1990 Arrival Date: 08/18/2022 Time: 09:26 Bed 2 Private MD: ED Physician Curtis Caban HPI: 08/18 09:44 This 32 yrs old Male presents to ER via EMS with complaints of WEAK, kelsey DEHYDRATED. 09:44 WALKING IN HEAT. Onset: The symptoms/episode began/occurred just prior to arrival, this kelsey morning. Severity of symptoms: At their worst the symptoms were mild in the emergency department the symptoms are unchanged. The patient has experienced similar episodes in the past, multiple times. Historical: - Allergies: 09:30 No Known Allergies; ap3 - Home Meds: :30 None [Active]; ap3 - PMHx: 09:30 Diabetes mellitus; ap3 - Immunization history:: Client reports having NOT received the Covid vaccine. - Social history:: Smoking status: . ROS: 09:45 Constitutional: Negative for fever, chills, and weight loss, Eyes: Negative for injury, kelsey pain, redness, and discharge, ENT: Negative for injury, pain, and discharge, Neck: Negative for injury, pain, and swelling, Cardiovascular: Negative for chest pain, palpitations, and edema, Respiratory: Negative for shortness of breath, cough, wheezing, and pleuritic chest pain, Abdomen/GI: Negative for abdominal pain, nausea, vomiting, diarrhea, and constipation, Back: Negative for injury and pain, : Negative for injury, bleeding, discharge, and swelling, MS/Extremity: Negative for injury and deformity, Skin: Negative for injury, rash, and discoloration, Neuro: Negative for headache, weakness, numbness, tingling, and seizure, Psych: Negative for depression, anxiety, suicide ideation, homicidal ideation, and hallucinations, Allergy/Immunology: Negative for hives, rash, and allergies, Endocrine: Negative for neck swelling, polydipsia, polyuria, polyphagia, and marked weight changes, Hematologic/Lymphatic: Negative for swollen nodes, abnormal bleeding, and unusual bruising. Exam: 09:45 Constitutional: This is a well developed, well nourished patient who is awake, alert, kelsey and in no acute distress. Head/Face: Normocephalic, atraumatic. Eyes: Pupils equal round and reactive to light, extra-ocular motions intact. Lids and lashes normal. Conjunctiva and sclera are non-icteric and not injected. Cornea within normal limits. Periorbital areas with no swelling, redness, or edema. ENT: Nares patent. No nasal discharge, no septal abnormalities noted. Tympanic membranes are normal and external auditory canals are clear. Oropharynx with no redness, swelling, or masses, exudates, or evidence of obstruction, uvula midline. Mucous membranes moist. Neck: Trachea midline, no thyromegaly or masses palpated, and no cervical lymphadenopathy. Supple, full range of motion without nuchal rigidity, or vertebral point tenderness. No Meningismus. Chest/axilla: Normal chest wall appearance and motion. Nontender with no deformity. No lesions are appreciated. Cardiovascular: Regular rate and rhythm with a normal S1 and S2. No gallops, murmurs, or rubs. Normal PMI, no JVD. No pulse deficits. Respiratory: Lungs have equal breath sounds bilaterally, clear to auscultation and percussion. No rales, rhonchi or wheezes noted. No increased work of breathing, no retractions or nasal flaring. Abdomen/GI: Soft, non-tender, with normal bowel sounds. No distension or tympany. No guarding or rebound. No evidence of tenderness throughout. Back: No spinal tenderness. No costovertebral tenderness. Full range of motion. Skin: Warm, dry with normal turgor. Normal color with no rashes, no lesions, and no evidence of cellulitis. MS/ Extremity: Pulses equal, no cyanosis. Neurovascular intact. Full, normal range of motion. Neuro: Awake and alert, GCS 15, oriented to person, place, time, and situation. Cranial nerves II-XII grossly intact. Motor strength 5/5 in all extremities. Sensory grossly intact. Cerebellar exam normal. Normal gait. Psych: Awake, alert, with orientation to person, place and time. Behavior, mood, and affect are within normal limits. Vital Signs: 09:27 Pulse 102; Resp 19; Pulse Ox 98% ; ap3 09:35 BP 197 / 110 Supine; Pulse 96; Resp 16; Temp 98; Pulse Ox 99% ; bp 09:37 BP 183 / 111; Pulse 100; Resp 16; Pulse Ox 97% ; bp 09:39 BP 169 / 115; Pulse 109; Resp 16; Pulse Ox 99% ; bp MDM: 09:28 Patient medically screened. kelsey 09:46 Differential Diagnosis sepsis. Data reviewed: vital signs, nurses notes, EMS record. kelsey Consideration of Admission/Observation Escalation of care including admission/observation considered. I considered the following discharge prescriptions or medication management in the emergency department Medications were administered in the Emergency Department. See MAR. Test considered but Not performed: Labs: NO LABS. Historians other than the Patient: EMS: [facility]FOR[facility]. Care significantly affected by the following chronic conditions: Diabetes. Counseling: I had a detailed discussion with the patient and/or guardian regarding: the historical points, exam findings, and any diagnostic results supporting the discharge/admit diagnosis, the need for outpatient follow up, for definitive care, a family practitioner. 08/18 09:43 Order name: PO challenge: GATORADE; Complete Time: 09:46 kelsey 08/18 09:43 Order name: Orthostatics; Complete Time: 09:46 kelsey Administered Medications: No medications were administered Disposition Summary: 08/18/22 09:48 Discharge Ordered Location: Home kelsey Problem: new kelsey Symptoms: have improved kelsey Condition: Stable kelsey Diagnosis - Dehydration kelsey - Essential (primary) hypertension kelsey Followup: kelsey - With: Private Physician - When: 2 - 3 days - Reason: Recheck today's complaints, Continuance of care, Re-evaluation by your physician Discharge Instructions: - Discharge Summary Sheet kelsey - Dehydration, Adult kelsey - Hypertension, Adult kelsey - Hypertension, Adult, [id number] kelsey - How to Take Your Blood Pressure, [id number] kelsey - Managing Your Hypertension kelsey Forms: - Medication Reconciliation Form [facility] - Thank You Letter kelsey - Antibiotic Education kelsey - Prescription Opioid Use [facility] - [email or web address] kelsey Signatures: Curtis Caban MD MD cha Prokisch, Amanda, RN RN ap3
--- NOTE | 2022-08-18 09:49 | ER ---
Nurse's Notes [facility] Name: Alberto Lynn Age: 32 yrs Sex: Male : 1990 Arrival Date: 08/18/2022 Time: 09:26 Bed 2 Private MD: Diagnosis: Dehydration;Essential (primary) hypertension Presentation: 08/18 09:27 Chief complaint: Patient states: he has been walking but can't tell us how long. ap3 patient reports "feeling dehydrated". Coronavirus screen: At this time, the client does not indicate any symptoms associated with coronavirus-19. Ebola Screen: No symptoms or risks identified at this time. Initial Sepsis Screen: Does the patient meet any 2 criteria? No. Patient's initial sepsis screen is negative. Does the patient have a suspected source of infection? No. Patient's initial sepsis screen is negative. Risk Assessment: Do you want to hurt yourself or someone else? Patient reports no desire to harm self or others. Onset of symptoms is unknown. 09:27 Method Of Arrival: EMS: [facility] ap3 09:27 Acuity: ZAHIDA 3 ap3 Triage Assessment: :31 General: Appears in no apparent distress. Behavior is calm, cooperative. Pain: Denies ap3 pain. Neuro: Level of Consciousness is awake, alert, obeys commands, Oriented to person, place, time, Reports weakness feeling weak and dehydrated . Cardiovascular: Patient's skin is warm and dry. Respiratory: Airway is patent Respiratory effort is even, unlabored, Respiratory pattern is regular, symmetrical. Historical: - Allergies: 09:30 No Known Allergies; ap3 - Home Meds: :30 None [Active]; ap3 - PMHx: 09:30 Diabetes mellitus; ap3 - Immunization history:: Client reports having NOT received the Covid vaccine. - Social history:: Smoking status: . Screenin: [facility] ED Fall Risk Assessment (Adult) History of falling in the last 3 months, ap3 including since admission No falls in past 3 months (0 pts). Abuse screen: Denies threats or abuse. Nutritional screening: No deficits noted. Tuberculosis screening: No symptoms or risk factors identified. Assessment: :30 General: SEE TRIAGE NOTE. bp Vital Signs: : Pulse 102; Resp 19; Pulse Ox 98% ; ap3 09:35 BP 197 / 110 Supine; Pulse 96; Resp 16; Temp 98; Pulse Ox 99% ; bp 09:37 BP 183 / 111; Pulse 100; Resp 16; Pulse Ox 97% ; bp 09:39 BP 169 / 115; Pulse 109; Resp 16; Pulse Ox 99% ; bp ED Course: 09:27 Patient arrived in ED. ap3 09:28 Curtis Caban MD is Attending Physician. [facility] 09:28 Triage completed. ap3 09:29 Arm band placed on right wrist. ap3 09:29 Patient has correct armband on for positive identification. Bed in low position. Call ap3 light in reach. Side rails up X2. Pulse ox on. NIBP on. 09:30 No provider procedures requiring assistance completed. Patient did not have IV access bp during this emergency room visit. 09:38 Jerel Forbes, RN is Primary Nurse. bp Administered Medications: No medications were administered Medication: 09:30 VIS not applicable for this client. bp Outcome: 09:30 Discharged to home ambulatory. bp 09:30 Condition: stable 09:30 Discharge instructions given to patient, Instructed on discharge instructions, follow up and referral plans. Demonstrated understanding of instructions, follow-up care. 09:48 Discharge ordered by . [facility] 10:00 Patient left the ED. bp Signatures: Curtis Caban MD MD cha Peltier, Brian, RN RN bp Radha Rodriguez, RN RN ap3
[2022-08-18 10:08] VITALS: BP 169/115; TEMP 98; O2SAT 99
== END 2022-08-18 10:00 | disposition home or self-care (01) ==
LOC: ER 09:26
DX: E86.0 Dehydration (principal); I10 Essential (primary) hypertension
CPT/HCPCS: 99283

== ENCOUNTER 2022-10-31 16:34 | Emergency (ER) | payer SELFPAY ==
[2022-10-31] MEDS ORDERED: NA CHLORIDE 0.9% 1,000 ML ONE (19:01)
[2022-10-31 19:17] LABS: Absolute Lymphocytes (CBC) 1.6 K/uL (0.7-4.9); Lymphocytes % 23.2 % (15.3-44.8); MCV 91.2 fL (80-100); MPV 9.6 fL (7.6-11.3); Platelets 189 thou/uL (152-406)
[2022-10-31 19:52] LABS: Albumin 3.7 g/dL (3.4-5.0); Bilirubin Total 0.3 mg/dL (0.2-1.0); Potassium 4.3 mEq/L (3.5-5.1); Protein, Total 6.8 g/dL (6.4-8.2)
--- NOTE | 2022-10-31 20:04 | ER ---
Nurse's Notes [facility] Name: Alberto Lynn Age: 32 yrs Sex: Male : 1990 Arrival Date: 10/31/2022 Time: 16:34 Bed 8 Private MD: Diagnosis: Muscle spasm Presentation: 10/31 16:36 Chief complaint: EMS states: toned out to patient home for muscle cramps. Coronavirus ld1 screen: At this time, the client does not indicate any symptoms associated with coronavirus-19. Ebola Screen: No symptoms or risks identified at this time. Initial Sepsis Screen: Does the patient meet any 2 criteria? No. Patient's initial sepsis screen is negative. Does the patient have a suspected source of infection? No. Patient's initial sepsis screen is negative. Risk Assessment: Do you want to hurt yourself or someone else? Patient reports no desire to harm self or others. Onset of symptoms was October 31, 2022 at 16:37. 16:36 Method Of Arrival: EMS: [facility] ld1 16:36 Acuity: ZAHIDA 3 ld1 Triage Assessment: 16:37 General: Appears in no apparent distress. comfortable, Behavior is calm, cooperative, ld1 appropriate for age. Pain: Denies pain. EENT: No signs and/or symptoms were reported regarding the EENT system. Neuro: Level of Consciousness is awake, alert, obeys commands, Oriented to person, place, time, situation, Appropriate for age. Cardiovascular: Capillary refill < 3 seconds Patient's skin is warm and dry. Respiratory: Airway is patent Respiratory effort is even, unlabored. GI: Abdomen is flat, non-distended. : No signs and/or symptoms were reported regarding the genitourinary system. Derm: No signs and/or symptoms reported regarding the dermatologic system. Musculoskeletal: No signs and/or symptoms reported regarding the musculoskeletal system. Historical: - Allergies: 16:37 No Known Allergies; ld1 - PMHx: 16:37 diabetes mellitus; ld1 - PSHx: 16:37 leg FX; ld1 - Immunization history:: Adult Immunizations up to date. - Social history:: Smoking status: Patient denies any tobacco usage or history of. Patient/guardian denies using alcohol. - Family history:: not pertinent. Screenin:11 [facility] ED Fall Risk Assessment (Adult) Score/Fall Risk Level 0 - 2 = Low Risk hb Oriented to surroundings, Maintained a safe environment. Abuse screen: Denies threats or abuse. Denies injuries from another. Nutritional screening: No deficits noted. Tuberculosis screening: No symptoms or risk factors identified. Assessment: 19:05 General: Appears in no apparent distress. Behavior is calm, cooperative. Pain: Pain hb currently is 7 out of 10 on a pain scale. Neuro: Level of Consciousness is awake, alert, obeys commands, Oriented to person, place, time, situation. Cardiovascular: Patient's skin is warm and dry. Respiratory: Respiratory effort is even, unlabored, Respiratory pattern is regular, symmetrical. GI: No signs and/or symptoms were reported involving the gastrointestinal system. : No signs and/or symptoms were reported regarding the genitourinary system. EENT: No signs and/or symptoms were reported regarding the EENT system. Derm: Skin is pink, warm \T\ dry. Musculoskeletal: Reports muscle cramps. 19:53 Reassessment: Patient and/or family updated on plan of care and expected duration. Pain ha1 level reassessed. Patient is alert, oriented x 3, equal unlabored respirations, skin warm/dry/pink. requesting to be discharged Patient states feeling better. Patient states symptoms have improved. Vital Signs: 16:36 BP 124 / 68; Pulse 79; Resp 18; Temp 97.9(TE); Pulse Ox 98% on R/A; Weight 77.11 kg; ld1 Height 5 ft. 10 in. ; Pain 10/10; 19:54 BP 126 / 74; Pulse 60; Resp 17 S; Pulse Ox 100% on R/A; ha1 16:36 Body Mass Index 24.39 (77.11 kg, 177.8 cm) ld1 16:36 Pain Scale: Adult ld1 ED Course: 16:36 Patient arrived in ED. ld1 16:36 Abdiel Nguyen MD is Attending Physician. rt 16:37 Triage completed. ld1 16:37 Curtis Quintanilla PA is PHCP. cp 16:37 Arm band placed on right wrist. ld1 18:37 Patient placed in an exam room, on a stretcher. ll1 18:48 Emerald Purcell, YI is Primary Nurse. hb 19:02 Inserted saline lock: 20 gauge in right antecubital area, using aseptic technique. hb Blood collected. 19:05 CPK Sent. hb 19:05 CMP Sent. hb 19:05 CBC with Diff Sent. hb 19:55 No provider procedures requiring assistance completed. ha1 20:10 Patient has correct armband on for positive identification. Provided Education on: . kd3 20:10 IV discontinued, intact, bleeding controlled, No redness/swelling at site. Pressure kd3 dressing applied. Administered Medications: 19:05 Drug: NS 0.9% IV 1000 ml IV at 1 bolus Per protocol; 1000 mL bolus Route: IV; Rate: 1 hb bolus; Site: right antecubital; 20:10 Follow up: IV Status: Completed infusion kd3 Medication: 20:10 VIS not applicable for this client. kd3 Outcome: 20:03 Discharge ordered by . rt 20:09 Discharged to home ambulatory, kd3 20:09 Condition: stable 20:09 Discharge instructions given to patient, Instructed on discharge instructions, follow up and referral plans. medication usage, Demonstrated understanding of instructions, follow-up care, medications, Prescriptions given X 1, 20:10 Patient left the ED. kd3 Signatures: Curtis Quintanilla PA PA cp Baxter, Heather, YI RN hb Amna Marcial RN RN ll1 Nely Foster RN RN Marcelina Souza RN RN kd3 Mally Grier RN RN ha1 Abdiel Nguyen MD MD rt
--- NOTE | 2022-10-31 20:04 | EDPHYS ---
Physician Documentation [facility] Name: Alberto Lynn Age: 32 yrs Sex: Male : 1990 Arrival Date: 10/31/2022 Time: 16:34 Bed 8 Private MD: ED Physician Abdiel Nguyen HPI: 10/31 21:39 This 32 yrs old Male presents to ER via EMS with complaints of body cramps. rt 21:39 Patient presents to the ED with body aches starting today. He has had multiple episodes rt of this year. He states this occurred after working outside for long period of time. Denies any discrete injury. Denies other acute complaints at this time. Symptoms are mild in severity, no other aggravating or alleviating factors.. Historical: - Allergies: 16:37 No Known Allergies; ld1 - PMHx: 16:37 diabetes mellitus; ld1 - PSHx: 16:37 leg FX; ld1 - Immunization history:: Adult Immunizations up to date. - Social history:: Smoking status: Patient denies any tobacco usage or history of. Patient/guardian denies using alcohol. - Family history:: not pertinent. ROS: 21:39 Cardiovascular: Negative for chest pain, palpitations, and edema, Respiratory: Negative rt for shortness of breath, cough, wheezing, and pleuritic chest pain, Abdomen/GI: Negative for abdominal pain, nausea, vomiting, diarrhea, and constipation, Skin: Negative for injury, rash, and discoloration, Neuro: Negative for headache, weakness, numbness, tingling, and seizure, Psych: Negative for depression, anxiety, suicide ideation, homicidal ideation, and hallucinations, 21:39 Constitutional: Positive for body aches, Negative for fever, Exam: 21:39 Constitutional: This is a well developed, well nourished patient who is awake, alert, rt and in no acute distress. Head/Face: Normocephalic, atraumatic. Chest/axilla: Normal chest wall appearance and motion. Nontender with no deformity. No lesions are appreciated. Cardiovascular: Regular rate and rhythm with a normal S1 and S2. No gallops, murmurs, or rubs. Normal PMI, no JVD. No pulse deficits. Respiratory: Lungs have equal breath sounds bilaterally, clear to auscultation and percussion. No rales, rhonchi or wheezes noted. No increased work of breathing, no retractions or nasal flaring. Abdomen/GI: Soft, non-tender, with normal bowel sounds. No distension or tympany. No guarding or rebound. No evidence of tenderness throughout. Skin: Warm, dry with normal turgor. Normal color with no rashes, no lesions, and no evidence of cellulitis. MS/ Extremity: Pulses equal, no cyanosis. Neurovascular intact. Full, normal range of motion. Neuro: Awake and alert, GCS 15, oriented to person, place, time, and situation. Cranial nerves II-XII grossly intact. Motor strength 5/5 in all extremities. Sensory grossly intact. Cerebellar exam normal. Normal gait. Psych: Awake, alert, with orientation to person, place and time. Behavior, mood, and affect are within normal limits. Vital Signs: 16:36 BP 124 / 68; Pulse 79; Resp 18; Temp 97.9(TE); Pulse Ox 98% on R/A; Weight 77.11 kg; ld1 Height 5 ft. 10 in. ; Pain 10/10; 19:54 BP 126 / 74; Pulse 60; Resp 17 S; Pulse Ox 100% on R/A; ha1 16:36 Body Mass Index 24.39 (77.11 kg, 177.8 cm) ld1 16:36 Pain Scale: Adult ld1 MDM: 18:39 Patient medically screened. rt 21:39 Differential Diagnosis Cramps, dry disturbance, rhabdo. Data reviewed: vital signs, rt nurses notes, lab test result(s). Care significantly affected by the following chronic conditions: Diabetes. Counseling: I had a detailed discussion with the patient and/or guardian regarding the historical points, exam findings, and any diagnostic results supporting the discharge/admit diagnosis, lab results, the need for outpatient follow up, to return to the emergency department if symptoms worsen or persist or if there are any questions or concerns that arise at home. 10/31 18:43 Order name: CBC with Diff; Complete Time: 19:49 rt 10/31 18:43 Order name: CMP; Complete Time: 19:53 rt 10/31 18:43 Order name: CPK; Complete Time: 19:53 rt 10/31 19:16 Order name: Labs - recollect needed: light green; Complete Time: 19:55 mc5 Administered Medications: 19:05 Drug: NS 0.9% IV 1000 ml IV at 1 bolus Per protocol; 1000 mL bolus Route: IV; Rate: 1 hb bolus; Site: right antecubital; 20:10 Follow up: IV Status: Completed infusion kd3 Disposition Summary: 10/31/22 20:03 Discharge Ordered Notes: Location: Home rt Problem: new rt Symptoms: are unchanged rt Condition: Stable rt Diagnosis - Muscle spasm rt Followup: rt - With: Private Physician - When: 5 - 6 days - Reason: Discharge Instructions: - Discharge Summary Sheet rt - Muscle Cramps and Spasms rt Forms: - Medication Reconciliation Form rt - Thank You Letter rt - Antibiotic Education rt - Prescription Opioid Use rt - Patient Portal Instructions rt - Leadership Thank You Letter rt Signatures: Dispatcher [employer] Emerald Rm, RN RN Nely Foster RN RN ld1 Abdiel Nguyen MD MD rt Shalini Mcclendon 5 Marcelina Roberts RN kd3
[2022-10-31 22:08] VITALS: TEMP 97.9
[2022-10-31 22:10] VITALS: BP 126/74; O2SAT 100
== END 2022-10-31 20:10 | disposition home or self-care (01) ==
LOC: ER 16:34
DX: M62.838 Other muscle spasm (principal)
CPT/HCPCS: 36415; 80053; 82550; 85025; 96360; 99284; J7030

== ENCOUNTER 2022-11-18 15:36 | Emergency (ER) | payer SELFPAY ==
--- NOTE | 2022-11-18 15:51 | ER ---
Nurse's Notes [facility] Name: Alberto Lynn Age: 32 yrs Sex: Male : 1990 Arrival Date: 11/18/2022 Time: 15:36 Bed 11 Private MD: Diagnosis: Muscle spasm Presentation: 11/18 15:40 Chief complaint: EMS states: toned out to home for generalized muscle spasms that eh3 started approximately 2 weeks ago, pt states, "my body just locked up, that's why I called". Coronavirus screen: Vaccine status: Patient reports receiving the 2nd dose of the covid vaccine. Ebola Screen: No symptoms or risks identified at this time. Initial Sepsis Screen: Does the patient meet any 2 criteria? No. Patient's initial sepsis screen is negative. Does the patient have a suspected source of infection? No. Patient's initial sepsis screen is negative. Risk Assessment: Do you want to hurt yourself or someone else? Patient reports no desire to harm self or others. Onset of symptoms was November 18, 2022. 15:40 Method Of Arrival: EMS: [place] [id number] 15:40 Acuity: ZAHIDA 3 eh3 Triage Assessment: 15:41 General: Appears in no apparent distress. uncomfortable, Behavior is calm, cooperative, eh3 appropriate for age. Pain: Denies pain. Neuro: Level of Consciousness is awake, alert, obeys commands, Oriented to person, place, time, situation. Cardiovascular: Capillary refill < 3 seconds Patient's skin is warm and dry. Respiratory: Airway is patent Respiratory effort is even, unlabored, Respiratory pattern is regular, symmetrical. GI: Abdomen is round non-distended. Derm: Skin is pink, warm \\T\\ dry. Musculoskeletal: Circulation, motion, and sensation intact. Range of motion: intact in all extremities. Historical: - Allergies: 15:41 No Known Allergies; eh3 - PMHx: 15:41 diabetes mellitus; eh3 - PSHx: 15:41 leg FX; eh3 - Immunization history:: Adult Immunizations up to date. - Social history:: Smoking status: Patient denies any tobacco usage or history of. Patient/guardian denies using alcohol. Screenin:43 [facility] ED Fall Risk Assessment (Adult) Score/Fall Risk Level 0 - 2 = Low Risk. Abuse eh3 screen: Denies threats or abuse. Denies injuries from another. Nutritional screening: No deficits noted. Tuberculosis screening: No symptoms or risk factors identified. Assessment: 15:43 Reassessment: No changes from previously documented assessment. See triage assessment. 3 Vital Signs: 15:40 BP 133 / 79; Pulse 81; Resp 18; Temp 97.9(O); Pulse Ox 98% on R/A; Weight 92.08 kg; 3 Height 5 ft. 11 in. ; 15:40 Body Mass Index 28.31 (92.08 kg, 180.34 cm) 3 ED Course: 15:39 Patient arrived in ED. 3 15:40 [facility] Mauricio [facility] 15:40 Abdiel Nguyen MD is Attending Physician. [facility] 15:41 Triage completed. 3 15:41 Arm band placed on. 3 15:43 Patient has correct armband on for positive identification. Bed in low position. Call [facility] light in reach. Side rails up X2. Provided Education on: Use of call gonzales. Client placed on continuous cardiac and pulse oximetry monitoring. NIBP monitoring applied. 16:15 Roz Rao, RN is Primary Nurse. iw Administered Medications: 16:15 Drug: Ketorolac IM 60 mg IM once Route: IM; Site: left gluteus; iw 16:15 Drug: Cyclobenzaprine PO 10 mg PO once Route: PO; iw Outcome: 15:50 Discharge ordered by . [facility] 16:47 Patient left the ED. Signatures: Roz Rao RN RN Virginia Oliva RN RN [facility] Alvina Mauricio FNP SENIOR BI DEVELOPER [facility]
--- NOTE | 2022-11-18 15:51 | EDPHYS ---
Physician Documentation [facility] Name: Alberto Lynn Age: 32 yrs Sex: Male : 1990 Arrival Date: 11/18/2022 Time: 15:36 Bed 11 Private MD: ED Physician Abdiel Nguyen HPI: 11/18 15:41 This 32 yrs old Male presents to ER via EMS with complaints of Muscle Spasms. [facility] 15:41 Onset: The symptoms/episode began/occurred acutely. Associated signs and symptoms: The 7 patient has no apparent associated signs or symptoms. 32-year-old male reports muscle spasms in his hands and feet. Denies working outside in the heat, nausea, vomiting, or any other symptoms.. Historical: - Allergies: 15:41 No Known Allergies; eh3 - PMHx: 15:41 diabetes mellitus; eh3 - PSHx: 15:41 leg FX; eh3 - Immunization history:: Adult Immunizations up to date. - Social history:: Smoking status: Patient denies any tobacco usage or history of. Patient/guardian denies using alcohol. ROS: 15:41 Constitutional: Negative for fever, chills, and weight loss, Eyes: Negative for injury, jh7 pain, redness, and discharge, Neck: Negative for injury, pain, and swelling, Cardiovascular: Negative for chest pain, palpitations, and edema, Respiratory: Negative for shortness of breath, cough, wheezing, and pleuritic chest pain, Back: Negative for injury and pain, Skin: Negative for injury, rash, and discoloration, Neuro: Negative for headache, weakness, numbness, tingling, and seizure, 15:41 MS/extremity: Positive for muscle spasms, Negative for injury or acute deformity, 15:41 All other systems are negative, Exam: 15:41 Constitutional: This is a well developed, well nourished patient who is awake, alert, jh7 and in no acute distress. Head/Face: Normocephalic, atraumatic. Neck: Trachea midline, no thyromegaly or masses palpated, and no cervical lymphadenopathy. Supple, full range of motion without nuchal rigidity, or vertebral point tenderness. No Meningismus. Cardiovascular: Regular rate and rhythm with a normal S1 and S2. No gallops, murmurs, or rubs. Normal PMI, no JVD. No pulse deficits. Respiratory: Lungs have equal breath sounds bilaterally, clear to auscultation and percussion. No rales, rhonchi or wheezes noted. No increased work of breathing, no retractions or nasal flaring. Abdomen/GI: Soft, non-tender, with normal bowel sounds. No distension or tympany. No guarding or rebound. No evidence of tenderness throughout. Skin: Warm, dry with normal turgor. Normal color with no rashes, no lesions, and no evidence of cellulitis. MS/ Extremity: Pulses equal, no cyanosis. Neurovascular intact. Full, normal range of motion. Neuro: Awake and alert, GCS 15, oriented to person, place, time, and situation. Motor strength 5/5 in all extremities. Sensory grossly intact. Normal gait. Vital Signs: 15:40 BP 133 / 79; Pulse 81; Resp 18; Temp 97.9(O); Pulse Ox 98% on R/A; Weight 92.08 kg; 3 Height 5 ft. 11 in. ; 15:40 Body Mass Index 28.31 (92.08 kg, 180.34 cm) [facility] MDM: 15:40 Patient medically screened. [facility] 16:20 Differential diagnosis: muscle spasm. Data reviewed: vital signs, nurses notes. I 7 considered the following discharge prescriptions or medication management in the emergency department Medications were administered in the Emergency Department. See MAR. Counseling: I had a detailed discussion with the patient and/or guardian regarding the historical points, exam findings, and any diagnostic results supporting the discharge/admit diagnosis, to return to the emergency department if symptoms worsen or persist or if there are any questions or concerns that arise at home. Administered Medications: 16:15 Drug: Ketorolac IM 60 mg IM once Route: IM; Site: left gluteus; iw 16:15 Drug: Cyclobenzaprine PO 10 mg PO once Route: PO; iw Disposition: 17:44 Co-signature as Attending Physician, Abdiel Nguyen MD I reviewed the patient's care rt provided by the Advanced Practice Provider and agree with the diagnosis and treatment plan. Disposition Summary: 11/18/22 15:50 Discharge Ordered Notes: Location: Home [facility] Problem: new [facility] Symptoms: are unchanged [facility] Condition: Stable [facility] Diagnosis - Muscle spasm [facility] Followup: [facility] - With: Private Physician - When: 2 - 3 days - Reason: Recheck today's complaints Discharge Instructions: - Discharge Summary Sheet [facility] - Muscle Cramps and Spasms [facility] Forms: - Medication Reconciliation Form [facility] - Thank You Letter [facility] - Patient Portal Instructions [facility] - Leadership Thank You Letter [facility] Prescriptions: - Naprosyn 500 mg Oral Tablet - take 1 tablet ORAL route 2 times per day take with food; 30 tablet; Refills: 0, [facility] Product Selection Permitted - Zanaflex 4 mg Oral Tablet - take 1 tablet ORAL route every 8 hours As needed; 20 tablet; Refills: 0, [facility] Product Selection Permitted Signatures: Roz Rao RN RN Virginia Oliva RN RN 3 Alvina Mauricio, ASSOCIATE THEATRE PROFESSOR ASSOCIATE THEATRE PROFESSOR [facility] Abdiel Nguyen MD MD rt
[2022-11-18] MEDS ORDERED: KETOROLAC 30 MG/ML INJ ONE ×2 (16:20→16:21)
[2022-11-18] MEDS ORDERED: CYCLOBENZAPRINE 10 MG TAB ONE ×2 (16:20→16:21)
[2022-11-18 17:00] VITALS: BP 133/79; TEMP 97.9; O2SAT 98
== END 2022-11-18 16:47 | disposition home or self-care (01) ==
LOC: ER 15:36
DX: M62.838 Other muscle spasm (principal)
CPT/HCPCS: 96372; 99284

== ENCOUNTER 2022-12-14 17:46 | Emergency (ER) | payer SELFPAY ==
[2022-12-14 19:51] LABS: Specific Gravity 1.018 (1.005-1.030); Urine Bacteria None Seen /HPF (<20); Urine Bilirubin NEGATIVE (Negative); Urine Blood Negative (Negative); Urine Clarity Clear (Clear); Urine Color Light-Yellow (Yellow); Urine Glucose NEGATIVE (Negative); Urine Mucus Slight /HPF (None Seen); Urine Protein NEGATIVE (Negative); Urine RBC None Seen /HPF (None Seen); Urine Urobilinogen Normal (Normal); Urine pH 5.5 (5.0-7.0)
[2022-12-14 19:52] LABS: Absolute Lymphocytes (CBC) 1.3 K/uL (0.7-4.9); Hematocrit 42.3 % (39.6-49.0); MCV 90.3 fL (80-100); MPV 8.8 fL (7.6-11.3); Platelets 249 thou/uL (152-406); RBC Red Blood Cell Count 4.69 M/uL (4.33-5.43)
[2022-12-14] MEDS ORDERED: KETOROLAC 30 MG/ML INJ ONE (19:54)
[2022-12-14] MEDS ORDERED: NA CHLORIDE 0.9% 1,000 ML ONE (19:54)
[2022-12-14 20:04] LABS: Magnesium 2.1 mg/dL (1.6-2.4); Potassium 3.5 mEq/L (3.5-5.1); Troponin High Sensitivity 6.4 pg/mL (<58.9)
[2022-12-14 20:33] LABS: Barbiturates NEGATIVE (NEGATIVE); Benzodiazepines NEGATIVE (NEGATIVE); Cocaine NEGATIVE (NEGATIVE); METHAMPHETAM NEGATIVE (NEGATIVE); Methadone NEGATIVE (NEGATIVE); Opiates NEGATIVE (NEGATIVE); Phencyclidine NEGATIVE (NEGATIVE); THC Cannibis NEGATIVE (NEGATIVE)
--- NOTE | 2022-12-14 21:19 | EDPHYS ---
Physician Documentation [facility] Name: Alberto Lynn Age: 32 yrs Sex: Male : 1990 Arrival Date: 12/14/2022 Time: 17:46 Bed 13 Private MD: ED Physician Toni Nieto HPI: 12/14 18:35 This 32 yrs old Male presents to ER via EMS with complaints of Pain All Over. cp 18:35 generalized pain, cramping all over. cp 18:35 Onset: The symptoms/episode began/occurred today. Severity of symptoms: in the emergency department the symptoms are unchanged despite home interventions. Patient reports he worked outside prior to symptoms. Historical: - Allergies: 18:19 No Known Allergies; iw - Home Meds: 18:19 None [Active]; iw - PMHx: 17:57 diabetes mellitus; iw - PSHx: 17:57 leg FX; iw - Immunization history:: Adult Immunizations up to date. - Social history:: Smoking status: . ROS: 18:40 Constitutional: Negative for chills, fever, poor PO intake, cp 18:40 Eyes: Negative for injury, pain, redness, and discharge, cp 18:40 ENT: Negative for drainage from ear(s), ear pain, sore throat, difficulty swallowing, difficulty handling secretions, 18:40 Cardiovascular: Negative for chest pain, edema, palpitations, 18:40 Respiratory: Negative for cough, shortness of breath, wheezing, 18:40 Abdomen/GI: Negative for abdominal pain, vomiting, diarrhea, constipation, 18:40 Back: Negative for injury or acute deformity, 18:40 : Negative for urinary symptoms, 18:40 Neuro: Negative for altered mental status, dizziness, headache, loss of consciousness, syncope, weakness, 18:40 All other systems are negative, Exam: 18:45 Constitutional: The patient appears in no acute distress, alert, awake, cp non-diaphoretic, non-toxic, well developed, well nourished, 18:45 Head/Face: Normocephalic, atraumatic. cp 18:45 Eyes: Periorbital structures: appear normal, Conjunctiva: normal, no exudate, no injection, Sclera: no appreciated abnormality, Lids and lashes: appear normal, bilaterally, 18:45 ENT: External ear(s): are unremarkable, Nose: is normal, Mouth: Lips: moist, Oral mucosa: pink and intact, moist, Posterior pharynx: is normal, airway is patent, no erythema, no exudate, 18:45 Neck: ROM/movement: is normal, is supple, no meningismus, no nuchal rigidity, 18:45 Chest/axilla: Inspection: normal, 18:45 Cardiovascular: Rate: normal, Rhythm: regular, 18:45 Respiratory: the patient does not display signs of respiratory distress, Respirations: normal, no use of accessory muscles, no retractions, labored breathing, is not present, Breath sounds: are clear throughout, no decreased breath sounds, no stridor, no wheezing, 18:45 Abdomen/GI: Inspection: abdomen appears normal, Palpation: abdomen is soft and non-tender, in all quadrants, 18:45 Skin: cellulitis, is not appreciated, no rash present. 18:45 Neuro: Orientation: to person, place \T\ time. Mentation: is normal, Motor: moves all fours, strength is normal, Sensation: is normal, 19:35 ECG was reviewed by the Attending Physician. Vital Signs: 18:18 BP 126 / 81; Pulse 69; Resp 16; Temp 98.8; Pulse Ox 100% on R/A; Weight 93.44 kg; iw Height 5 ft. 11 in. ; Pain 10/10; 19:30 BP 121 / 74; Pulse 70; Resp 14 S; Pulse Ox 100% on R/A; km8 20:30 BP 126 / 63; Pulse 65; Resp 16 S; Pulse Ox 97% on R/A; km8 21:00 BP 120 / 71; Pulse 64; Resp 14; Pulse Ox 100% on R/A; Pain 4/10; km8 18:18 Body Mass Index 28.73 (93.44 kg, 180.34 cm) iw 18:18 Pain Scale: Adult iw 21:00 Pain Scale: Adult km8 MDM: 18:27 Patient medically screened. 19:00 Differential Diagnosis flu, electrolyte abnormality, dehydration, rhabdo. 21:18 Data reviewed: vital signs, nurses notes, lab test result(s), EKG, and as a result, I will discharge patient. 21:18 I considered the following discharge prescriptions or medication management in the emergency department Medications were administered in the Emergency Department. See MAR. Care significantly affected by the following chronic conditions: Diabetes. Counseling: I had a detailed discussion with the patient and/or guardian regarding the historical points, exam findings, and any diagnostic results supporting the discharge/admit diagnosis, lab results, to return to the emergency department if symptoms worsen or persist or if there are any questions or concerns that arise at home. Response to treatment: the patient's symptoms have mildly improved after treatment, and as a result, I will discharge patient. 12/14 18:30 Order name: Basic Metabolic Panel; Complete Time: 20:23 cp 12/14 20:23 Interpretation: Normal except: CL 108; GLUC 72. 12/14 18:30 Order name: CBC with Diff; Complete Time: 20:23 cp 12/14 20:23 Interpretation: Reviewed. 12/14 18:30 Order name: Magnesium; Complete Time: 20:23 cp 12/14 18:30 Order name: Troponin HS; Complete Time: 20:23 12/14 20:23 Interpretation: Reviewed. 12/14 18:30 Order name: CK; Complete Time: 20:23 cp 12/14 18:30 Order name: Urinalysis W/Microscopic; Complete Time: 19:51 cp 12/14 19:51 Interpretation: Reviewed. 12/14 18:30 Order name: UDS; Complete Time: 20:55 cp 12/14 20:55 Interpretation: Reviewed. 12/14 18:30 Order name: EKG; Complete Time: 18:31 cp 12/14 18:30 Order name: Cardiac monitoring; Complete Time: 19:38 12/14 18:30 Order name: EKG - Nurse/Tech; Complete Time: 19:38 cp 12/14 18:30 Order name: IV Saline Lock; Complete Time: 19:38 cp 12/14 18:30 Order name: Labs collected and sent; Complete Time: 19:38 cp 12/14 18:30 Order name: O2 Per Protocol; Complete Time: 19:38 cp 12/14 18:30 Order name: O2 Sat Monitoring; Complete Time: 19:38 cp EC:35 Rate is 60 beats/min. Rhythm is regular. MT interval is normal. QRS interval is normal. cp QT interval is normal. T waves are Inverted in leads III, aVR. Interpreted by me. Reviewed by me. Administered Medications: 19:43 Drug: NS 0.9% IV 1000 ml IV at 1 bolus Per protocol; 1000 mL bolus Route: IV; Rate: 1 km8 bolus; Site: right forearm; 20:23 Follow up: IV Status: Completed infusion; IV Intake: 1000ml 19:43 Drug: Ketorolac IVP 15 mg IVP once Route: IVP; Site: right forearm; km8 20:23 Follow up: Response: No adverse reaction; Pain is decreased 8 Disposition: 12/15 08:09 Co-signature as Attending Physician, Toni Nieto MD I reviewed the patient's care rn provided by the Advanced Practice Provider and agree with the diagnosis and treatment plan. Disposition Summary: 12/14/22 21:19 Discharge Ordered Notes: Location: Home cp Problem: new cp Symptoms: have improved cp Condition: Stable cp Diagnosis - Acute pain, not elsewhere classified cp Followup: cp - With: Private Physician - When: 2 - 3 days - Reason: Recheck today's complaints Discharge Instructions: - Discharge Summary Sheet cp - Acute Pain, Adult cp Forms: - Medication Reconciliation Form cp - Thank You Letter cp - Antibiotic Education cp - Prescription Opioid Use cp - Patient Portal Instructions cp - Leadership Thank You Letter cp - Work release form km8 Signatures: Dispatcher [employer] Roz Lindo, Toni Arias RN, MD MD rn Page, Corey, PA PA cp Marx, Katie, RN RN km8
--- NOTE | 2022-12-14 21:19 | ER ---
Nurse's Notes [facility] Name: Alberto Lynn Age: 32 yrs Sex: Male : 1990 Arrival Date: 12/14/2022 Time: 17:46 Bed 13 Private MD: Diagnosis: Acute pain, not elsewhere classified Presentation: 12/14 17:56 Chief complaint: Patient states: c/o pain all over, cramping pain. Coronavirus screen: iw At this time, the client does not indicate any symptoms associated with coronavirus-19. Ebola Screen: Patient negative for fever greater than or equal to 101.5 degrees Fahrenheit, and additional compatible Ebola Virus Disease symptoms Patient denies exposure to infectious person. Patient denies travel to an Ebola-affected area in the 21 days before illness onset. No symptoms or risks identified at this time. Initial Sepsis Screen: Does the patient meet any 2 criteria? No. Patient's initial sepsis screen is negative. Does the patient have a suspected source of infection? No. Patient's initial sepsis screen is negative. Risk Assessment: Do you want to hurt yourself or someone else? Patient reports no desire to harm self or others. 17:56 Method Of Arrival: EMS: [facility] iw 18:19 Onset of symptoms was December 14, 2022. iw 18:19 Acuity: ZAHIDA 4 iw 19:15 Acuity: ZAHIDA 3 iw Historical: - Allergies: 18:19 No Known Allergies; iw - Home Meds: 18:19 None [Active]; iw - PMHx: 17:57 diabetes mellitus; iw - PSHx: 17:57 leg FX; iw - Immunization history:: Adult Immunizations up to date. - Social history:: Smoking status: . Screenin:38 [facility] ED Fall Risk Assessment (Adult) History of falling in the last 3 months, km8 including since admission No falls in past 3 months (0 pts) Confusion or Disorientation No (0 pts) Intoxicated or Sedated No (0 pts) Impaired Gait No (0 pts) Mobility Assist Device Used No (0 pt) Altered Elimination No (0 pt) Score/Fall Risk Level 0 - 2 = Low Risk Oriented to surroundings, Maintained a safe environment, Educated pt \T\ family on fall prevention, incl call for assistance when getting out of bed, Assessed \T\ reinforced patient's understanding of fall precautions. 19:38 Abuse screen: Denies threats or abuse. Denies injuries from another. Nutritional km8 screening: No deficits noted. Tuberculosis screening: No symptoms or risk factors identified. Assessment: 19:38 General: Appears in no apparent distress. uncomfortable, Behavior is calm, cooperative, km8 appropriate for age. Pain: Complains of pain in right leg and left leg Pain currently is 8 out of 10 on a pain scale. Quality of pain is described as crampy. Neuro: Sol Agitation-Sedation Scale (RASS): 0 - Alert and Calm Level of Consciousness is awake, alert, obeys commands, Oriented to person, place, time, situation. Cardiovascular: Capillary refill < 3 seconds Patient's skin is warm and dry. Respiratory: Airway is patent Respiratory effort is even, unlabored, Respiratory pattern is regular, symmetrical. GI: No deficits noted. No signs and/or symptoms were reported involving the gastrointestinal system. : No deficits noted. No signs and/or symptoms were reported regarding the genitourinary system. EENT: No deficits noted. No signs and/or symptoms were reported regarding the EENT system. Derm: No deficits noted. No signs and/or symptoms reported regarding the dermatologic system. Skin is intact, Skin is dry, Skin is pink, warm \T\ dry. normal, Skin temperature is warm. Musculoskeletal: No deficits noted. No signs and/or symptoms reported regarding the musculoskeletal system. Range of motion: intact in all extremities. 21:14 Reassessment: Patient appears in no apparent distress at this time. Patient and/or km8 family updated on plan of care and expected duration. Pain level reassessed. Patient is alert, oriented x 3, equal unlabored respirations, skin warm/dry/pink. Patient states symptoms have improved. Vital Signs: 18:18 BP 126 / 81; Pulse 69; Resp 16; Temp 98.8; Pulse Ox 100% on R/A; Weight 93.44 kg; iw Height 5 ft. 11 in. ; Pain 10/10; 19:30 BP 121 / 74; Pulse 70; Resp 14 S; Pulse Ox 100% on R/A; km8 20:30 BP 126 / 63; Pulse 65; Resp 16 S; Pulse Ox 97% on R/A; km8 21:00 BP 120 / 71; Pulse 64; Resp 14; Pulse Ox 100% on R/A; Pain 4/10; km8 18:18 Body Mass Index 28.73 (93.44 kg, 180.34 cm) iw 18:18 Pain Scale: Adult iw 21:00 Pain Scale: Adult km8 ED Course: 17:47 Patient arrived in ED. rg4 17:48 Curtis Quintanilla PA is PHCP. cp 17:48 Toni Nieto MD is Attending Physician. cp 18:19 Triage completed. iw 18:19 Arm band placed on. iw 19:19 Nelia Desouza, YI is Primary Nurse. km8 19:38 Patient has correct armband on for positive identification. Bed in low position. Call km8 light in reach. Side rails up X 1. Client placed on continuous cardiac and pulse oximetry monitoring. NIBP monitoring applied. personnel monitor on. Door closed. Noise minimized. 19:38 UDS Sent. km8 19:38 Urinalysis W/Microscopic Sent. km8 19:38 CK Sent. km8 19:38 Basic Metabolic Panel Sent. km8 19:38 CBC with Diff Sent. km8 19:38 Magnesium Sent. km8 19:38 Troponin HS Sent. km8 19:38 Inserted saline lock: 20 gauge in right forearm, using aseptic technique. Blood km8 collected. Patient maintains SpO2 saturation greater than 95% on room air. 21:26 No provider procedures requiring assistance completed. IV discontinued, intact, km8 bleeding controlled, No redness/swelling at site. Pressure dressing applied. 21:27 Provided Education on: d/c teaching. km8 Administered Medications: 19:43 Drug: NS 0.9% IV 1000 ml IV at 1 bolus Per protocol; 1000 mL bolus Route: IV; Rate: 1 km8 bolus; Site: right forearm; 20:23 Follow up: IV Status: Completed infusion; IV Intake: 1000ml km8 19:43 Drug: Ketorolac IVP 15 mg IVP once Route: IVP; Site: right forearm; km8 20:23 Follow up: Response: No adverse reaction; Pain is decreased km8 Medication: 21:27 VIS not applicable for this client. km8 Intake: 20:23 IV: 1000ml; Total: 1000ml. km8 Outcome: 21:19 Discharge ordered by . cp 21:28 Discharged to home ambulatory, km8 21:28 Condition: good 21:28 Discharge instructions given to patient, Instructed on discharge instructions, follow up and referral plans. Demonstrated understanding of instructions, follow-up care, 21:28 Patient left the ED. km8 Signatures: Roz Rao RN RN Curtis Quintanilla PA PA cp Garcia, Rubi rg4 Nelia Desouza RN RN km8
[2022-12-14 21:52] VITALS: TEMP 98.8
[2022-12-14 21:56] VITALS: BP 120/71; O2SAT 100
--- NOTE | 2022-12-21 14:39 | EKG ---
Test Date: 2022-12-14 Test Time: 19:28:07 Horse Breaker: JENNIFER MEASUREMENT RESULTS: Intervals: Rate: 60 AL: 188 QRSD: 80 QT: 406 QTc: 406 [place]: P: 64 AL: 188 QRS: 50 T: 13 INTERPRETIVE STATEMENTS: Normal sinus rhythm with sinus arrhythmia Septal infarct, age undetermined Abnormal ECG No previous ECG available for comparison Electronically Signed On 12-21-22 14:19:31 CENTRAL SUPPLY ASSISTANT by Livan Ovalles
== END 2022-12-14 21:28 | disposition home or self-care (01) ==
LOC: ER 17:46
DX: R52 Pain, unspecified (principal)
CPT/HCPCS: 36415; 80048; 80307; 81001; 82550; 83735; 84484; 85025; 93005; 96361; 96374; 99285; J7030

== ENCOUNTER → 2023-01-31 | Emergency (ER) | payer SELFPAY ==
[~2023-01-31] MED LIST: CYCLOBENZAPRINE 10 MG TAB ONE; NA CHLORIDE 0.9% 1,000 ML ONE
[2023-01-31 13:55] LABS: Specific Gravity 1.016 (1.005-1.030); Urine Bacteria None Seen /HPF (<20); Urine Bilirubin NEGATIVE (Negative); Urine Blood Negative (Negative); Urine Clarity Clear (Clear); Urine Color Light-Yellow (Yellow); Urine Glucose NEGATIVE (Negative); Urine Mucus Slight /HPF (None Seen); Urine Protein NEGATIVE (Negative); Urine RBC <5 /HPF (None Seen); Urine Urobilinogen Normal (Normal)
[2023-01-31 13:56] LABS: Hematocrit 45.2 % (39.6-49.0); MCV 89.6 fL (80-100); MPV 8.5 fL (7.6-11.3); Platelets 232 thou/uL (152-406); RBC Red Blood Cell Count 5.04 M/uL (4.33-5.43)
[2023-01-31 14:11] LABS: Barbiturates NEGATIVE (NEGATIVE); Benzodiazepines NEGATIVE (NEGATIVE); Cocaine NEGATIVE (NEGATIVE); METHAMPHETAM NEGATIVE (NEGATIVE); Methadone NEGATIVE (NEGATIVE); Opiates NEGATIVE (NEGATIVE); Phencyclidine NEGATIVE (NEGATIVE); THC Cannibis NEGATIVE (NEGATIVE)
--- NOTE | 2023-01-31 15:02 | EDPHYS ---
Physician Documentation [facility] Name: Alberto Lynn Age: 33 yrs Sex: Male : 1990 Arrival Date: 01/31/2023 Time: 13:21 Bed 10 Private MD: ED Physician Sterling Parker HPI: 01/31 13:34 This 33 yrs old Male presents to ER via EMS with complaints of muscle cramps. sb4 13:35 patient reports generalized muscle cramps/body aches that woke up up this morning. he sb4 states that they are intermittent but he is not experiencing them at this time. he denies any drug or alcohol abuse. 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 he has been seen here for this several times without a cause being determined. denies any chest pain, shortness of breath, headache, fever, chills, nausea, vomiting, diarrhea, urinary symptoms. Historical: - Allergies: 13:33 No Known Allergies; ap3 - Home Meds: 13:33 None [Active]; ap3 - PSHx: 13:33 leg FX; ap3 - Immunization history:: Adult Immunizations up to date. - Social history:: Smoking status: Patient denies any tobacco usage or history of. ROS: 13:35 Constitutional: Negative for fever, chills, and weight loss, sb4 13:35 All other systems are negative, Exam: 13:35 Constitutional: This is a well developed, well nourished patient who is awake, alert, sb4 and in no acute distress. Head/Face: Normocephalic, atraumatic. Eyes: Extra-ocular motions intact. Periorbital areas with no swelling, redness, or edema. ENT: Mucous membranes moist. Cardiovascular: Regular rate and rhythm with a normal S1 and S2. Respiratory: Lungs have equal breath sounds bilaterally, clear to auscultation and percussion. No rales, rhonchi or wheezes noted. No increased work of breathing, no retractions or nasal flaring. Abdomen/GI: Soft, non-tender, no distension. Skin: Warm, dry with normal turgor. Normal color with no rashes, no lesions, and no evidence of cellulitis. MS/ Extremity: Pulses equal, no cyanosis. Neurovascular intact. Full, normal range of motion. Neuro: Awake and alert, GCS 15, oriented to person, place, time, and situation. Motor strength 5/5 in all extremities. Sensory grossly intact. 13:35 Psych: Affect is flat, Vital Signs: 13:31 BP 138 / 81; Pulse 78; Resp 17; Temp 98.4; Pulse Ox 99% ; Weight 97.52 kg; Pain 10/10; ap3 15:20 BP 133 / 69; Pulse 78; Resp 16; Pulse Ox 100% ; cp4 13:31 Pain Scale: Adult ap3 MDM: 13:25 Patient medically screened. sb4 13:35 Differential Diagnosis hypokalemia, rhabdomyolysis, hypomagnesmia, dehydration, drug sb4 abuse, alcohol abuse. 15:01 Data reviewed: vital signs, nurses notes, lab test result(s), and as a result, I will sb4 discharge patient. Counseling: I had a detailed discussion with the patient and/or guardian regarding the historical points, exam findings, and any diagnostic results supporting the discharge/admit diagnosis, lab results, the need for outpatient follow up, for definitive care. 01/31 13:32 Order name: CBC w/o diff; Complete Time: 14:05 sb4 01/31 13:32 Order name: BMP; Complete Time: 15:01 sb4 01/31 13:32 Order name: CK; Complete Time: 15:01 sb4 01/31 13:32 Order name: Magnesium; Complete Time: 15:01 sb4 01/31 13:32 Order name: UAM; Complete Time: 13:59 sb4 01/31 13:32 Order name: UDS; Complete Time: 14:13 sb4 01/31 13:32 Order name: ETOH Level; Complete Time: 14:13 sb4 01/31 13:32 Order name: IV Saline Lock; Complete Time: 13:46 sb4 Administered Medications: 13:53 Drug: NS 0.9% IV 1000 ml IV at 1 bolus Per protocol; 1000 mL bolus Route: IV; Rate: 1 cp4 bolus; Site: right antecubital; 15:21 Follow up: Response: No adverse reaction; IV Status: Completed infusion cp4 13:53 Drug: Cyclobenzaprine PO 10 mg PO once Route: PO; cp4 15:21 Follow up: Response: No adverse reaction cp4 Disposition: 15:26 Co-signature as Attending Physician, Sterling Parker MD I agree with the assessment and kdr plan of care. Disposition Summary: 01/31/23 15:01 Discharge Ordered Notes: Location: Home sb4 Problem: new sb4 Symptoms: have improved sb4 Condition: Stable sb4 Diagnosis - Muscle spasm sb4 Followup: sb4 - With: Edmund Eli, DO - When: As needed - Reason: Recheck today's complaints, Re-evaluation by your physician Discharge Instructions: - Discharge Summary Sheet sb4 - Muscle Cramps and Spasms, [id number] sb4 Forms: - Medication Reconciliation Form sb4 - Thank You Letter sb4 - Antibiotic Education sb4 - Prescription Opioid Use sb4 - Patient Portal Instructions sb4 - Leadership Thank You Letter sb4 Signatures: Dispatcher [employer] EDSterling Meza MD MD kdr Radha Rodriguez RN RN [email or web address] Keke De Anda, PA-C PAAdalidC sb4 Raysa Teran cp4
--- NOTE | 2023-01-31 15:02 | ER ---
Nurse's Notes [facility] Name: Alberto Lynn Age: 33 yrs Sex: Male : 1990 Arrival Date: 01/31/2023 Time: 13:21 Bed 10 Private MD: Diagnosis: Muscle spasm Presentation: 01/31 13:31 Chief complaint: Patient states: he has been having generalized muscle spasms since ap3 approx 0530 this morning. patient denies having the spasms at this time, but states his pain is currently a 10/10 on the pain scale. Coronavirus screen: At this time, the client does not indicate any symptoms associated with coronavirus-19. Ebola Screen: No symptoms or risks identified at this time. Initial Sepsis Screen: Does the patient meet any 2 criteria? No. Patient's initial sepsis screen is negative. Does the patient have a suspected source of infection? No. Patient's initial sepsis screen is negative. Risk Assessment: Do you want to hurt yourself or someone else? Patient reports no desire to harm self or others. Onset of symptoms is unknown. 13:31 Method Of Arrival: EMS: [facility] ap3 13:31 Acuity: ZAHIDA 3 ap3 Triage Assessment: 13:34 General: Appears in no apparent distress. Behavior is calm, cooperative. Pain: ap3 Complains of pain in generalized body pain. Neuro: Level of Consciousness is awake, alert, obeys commands, Oriented to person, place, time, situation, Appropriate for age. Cardiovascular: Patient's skin is warm and dry. Respiratory: Airway is patent Respiratory effort is even, unlabored, Respiratory pattern is regular, symmetrical. Historical: - Allergies: 13:33 No Known Allergies; ap3 - Home Meds: 13:33 None [Active]; ap3 - PSHx: 13:33 leg FX; ap3 - Immunization history:: Adult Immunizations up to date. - Social history:: Smoking status: Patient denies any tobacco usage or history of. Screenin:34 [facility] ED Fall Risk Assessment (Adult) History of falling in the last 3 months, ap3 including since admission No falls in past 3 months (0 pts). Abuse screen: Denies threats or abuse. Nutritional screening: No deficits noted. Tuberculosis screening: No symptoms or risk factors identified. Assessment: 13:53 General: Appears in no apparent distress. Behavior is calm, cooperative, appropriate cp4 for age. Vital Signs: 13:31 BP 138 / 81; Pulse 78; Resp 17; Temp 98.4; Pulse Ox 99% ; Weight 97.52 kg; Pain 10/10; ap3 15:20 BP 133 / 69; Pulse 78; Resp 16; Pulse Ox 100% ; cp4 13:31 Pain Scale: Adult ap3 ED Course: 13:25 Patient arrived in ED. sb4 13:25 Keke De Anda PA-C is PHCP. sb4 13:25 Sterling Parker MD is Attending Physician. sb4 13:33 Triage completed. ap3 13:34 Arm band placed on right wrist. ap3 13:35 Patient has correct armband on for positive identification. Bed in low position. Call ap3 light in reach. Side rails up X2. Pulse ox on. NIBP on. 13:36 Raysa Teran is Primary Nurse. cp4 13:46 ETOH Level Sent. cp4 13:46 UDS Sent. cp4 13:46 UAM Sent. cp4 13:46 Magnesium Sent. cp4 13:46 CK Sent. cp4 13:46 BMP Sent. cp4 13:46 CBC w/o diff Sent. cp4 13:53 No provider procedures requiring assistance completed. Inserted saline lock: 20 gauge cp4 in right antecubital area, using aseptic technique. 15:01 Edmund Eli DO is Referral Physician. sb4 15:21 Provided Education on: muscle spasms. cp4 15:21 intact, bleeding controlled, No redness/swelling at site. Pressure dressing applied. cp4 Administered Medications: 13:53 Drug: NS 0.9% IV 1000 ml IV at 1 bolus Per protocol; 1000 mL bolus Route: IV; Rate: 1 cp4 bolus; Site: right antecubital; 15:21 Follow up: Response: No adverse reaction; IV Status: Completed infusion cp4 13:53 Drug: Cyclobenzaprine PO 10 mg PO once Route: PO; cp4 15:21 Follow up: Response: No adverse reaction cp4 Medication: 13:53 VIS not applicable for this client. cp4 Outcome: 15:01 Discharge ordered by . sb4 15:21 Discharged to home ambulatory, cp4 15:21 Condition: stable 15:21 Discharge instructions given to patient, Instructed on discharge instructions, follow up and referral plans. Demonstrated understanding of instructions, follow-up care, 15:22 Patient left the ED. cp4 Signatures: Radha Rodriguez RN RN [email or web address] Keke De Anda PA-C PA-C sb4 Raysa Teran cp4
[2023-01-31 17:48] VITALS: BP 133/69; TEMP 98.4; O2SAT 100
== END ==
LOC: ER 13:21
DX: M62.838 Other muscle spasm (principal)
CPT/HCPCS: 36415; 80048; 80307; 81001; 82077; 82550; 83735; 85027; 96360; 99284; J7030

== ENCOUNTER → 2023-04-27 | Emergency (ER) | payer SELFPAY ==
[~2023-04-27] MED LIST changes: +KETOROLAC 30 MG/ML INJ ONE
[2023-04-27 10:19] LABS: Hematocrit 44.8 % (39.6-49.0); Hemoglobin 15.5 g/dL (13.6-17.9); MCH 31.1 pg (27.0-35.0); MCHC 34.6 g/dL (32.0-36.0); MCV 89.7 fL (80-100); MPV 8.5 fL (7.6-11.3); Platelets 238 thou/uL (152-406); RBC Red Blood Cell Count 4.99 M/uL (4.33-5.43); Red Cell Distribution Width 13.4 % (12.1-15.2)
[2023-04-27 10:33] LABS: Magnesium 2.1 mg/dL (1.6-2.4)
--- NOTE | 2023-04-27 10:49 | ER ---
Nurse's Notes [facility] Name: Alberto Lynn Age: 33 yrs Sex: Male : 1990 Arrival Date: 04/27/2023 Time: 09:53 Bed 15 Private MD: Diagnosis: Myalgia Presentation: 04/26 09:57 Chief complaint: EMS states: Muscle cramping all over since last night. Coronavirus hb screen: At this time, the client does not indicate any symptoms associated with coronavirus-19. Ebola Screen: No symptoms or risks identified at this time. Initial Sepsis Screen: Does the patient meet any 2 criteria? No. Patient's initial sepsis screen is negative. Does the patient have a suspected source of infection? No. Patient's initial sepsis screen is negative. Risk Assessment: Do you want to hurt yourself or someone else? Patient reports no desire to harm self or others. Onset of symptoms was April 26, 2023. 09:57 Method Of Arrival: EMS: [facility] 09:57 Acuity: ZAHIDA 3 hb Triage Assessment: 09:59 General: Appears in no apparent distress. Behavior is calm, cooperative. Pain: Pain hb currently is 10 out of 10 on a pain scale. EENT: No signs and/or symptoms were reported regarding the EENT system. Neuro: Level of Consciousness is awake, alert, obeys commands, Oriented to person, place, time, situation. Cardiovascular: Patient's skin is warm and dry. Respiratory: Airway is patent Respiratory effort is even, unlabored, Respiratory pattern is regular, symmetrical. GI: No signs and/or symptoms were reported involving the gastrointestinal system. : No signs and/or symptoms were reported regarding the genitourinary system. Derm: Skin is pink, warm \T\ dry. Musculoskeletal: Reports muscular cramps all over. Historical: - Allergies: :59 No Known Allergies; hb - Home Meds: :59 None [Active]; hb - PMHx: :59 diabetes mellitus; hb - PSHx: :59 leg FX; hb - Immunization history:: Adult Immunizations up to date. - Social history:: Smoking status: Patient denies any tobacco usage or history of. Screenin:00 [facility] ED Fall Risk Assessment (Adult) History of falling in the last 3 months, hb including since admission No falls in past 3 months (0 pts) Confusion or Disorientation No (0 pts) Intoxicated or Sedated No (0 pts) Impaired Gait No (0 pts) Mobility Assist Device Used No (0 pt) Altered Elimination No (0 pt) Score/Fall Risk Level 0 - 2 = Low Risk Oriented to surroundings, Maintained a safe environment, Educated pt \T\ family on fall prevention, incl call for assistance when getting out of bed. Abuse screen: Denies threats or abuse. Denies injuries from another. Nutritional screening: No deficits noted. Tuberculosis screening: No symptoms or risk factors identified. Assessment: 10:00 General: See triage assessment.. hb 11:04 Reassessment: Patient appears in no apparent distress at this time. Patient denies pain hb at this time. Patient states feeling better. Patient states symptoms have improved. Vital Signs: 09:57 BP 133 / 93; Pulse 80; Resp 16; Temp 98.3(O); Pulse Ox 97% ; Weight 94.35 kg; Height 5 hb ft. 11 in. ; Pain 10; 11:04 BP 128 / 88; Pulse 84; Resp 16; Pulse Ox 99% on R/A; hb 09:57 Body Mass Index 29.01 (94.35 kg, 180.34 cm) hb 09:57 Pain Scale: Adult hb ED Course: 09:54 Patient arrived in ED. sb4 09:54 Keke De Anda PA-C is PHCP. sb4 09:54 Rajani Trejo MD is Attending Physician. sb4 09:57 Emerald Purcell, YI is Primary Nurse. hb 09:59 Triage completed. hb 09:59 Arm band placed on right wrist. hb 10:00 Patient has correct armband on for positive identification. Bed in low position. Call hb light in reach. Provided Education on: use of call light, tests, result times. Client placed on continuous cardiac and pulse oximetry monitoring. NIBP monitoring applied. power washer on. Pulse ox on. NIBP on. 10:00 No provider procedures requiring assistance completed. hb 10:02 Patient maintains SpO2 saturation greater than 95% on room air. hb 10:05 Inserted saline lock: 20 gauge in right antecubital area, using aseptic technique. hb ,using aseptic technique. by Braden CHIANG Blood collected. 10:05 Initial lab(s) drawn, by ED staff, sent to lab. hb 10:06 CK Sent. hb 10:06 Magnesium Sent. hb 10:06 BMP Sent. hb 10:06 CBC w/o diff Sent. hb 11:04 IV discontinued, intact, bleeding controlled, No redness/swelling at site. Pressure hb dressing applied. Administered Medications: 10:10 Drug: NS 0.9% IV 1000 ml IV at 1 bolus Per protocol; 1000 mL bolus Route: IV; Rate: 1 hb bolus; Site: right antecubital; 10:50 Follow up: Response: No adverse reaction; IV Status: Completed infusion; IV Intake: hb 1000ml 10:10 Drug: Ketorolac IVP 30 mg IVP once Route: IVP; Site: right antecubital; hb 10:40 Follow up: Response: No adverse reaction hb 10:10 Drug: Cyclobenzaprine PO 10 mg PO once Route: PO; hb 11:04 Follow up: Response: No adverse reaction hb 10:34 Drug: NS 0.9% IV 1000 ml IV at 1 bolus Per protocol; 1000 mL bolus Route: IV; Rate: 1 hb bolus; Site: right antecubital; 11:04 Follow up: Response: No adverse reaction; IV Status: Completed infusion; IV Intake: hb 1000ml Medication: 10:00 VIS not applicable for this client. hb Intake: 10:50 IV: 1000ml; Total: 1000ml. hb 11:04 IV: 1000ml; Total: 2000ml. hb Outcome: 10:49 Discharge ordered by . sb4 11:04 Discharged to home ambulatory, hb 11:04 Condition: stable 11:04 Discharge instructions given to patient, Instructed on discharge instructions, follow up and referral plans. medication usage, Demonstrated understanding of instructions, follow-up care, medications, 11:05 Patient left the ED. hb Signatures: Emerald Purcell, RN RN Keke Dudley PA-C PABib sb4
--- NOTE | 2023-04-27 10:49 | EDPHYS ---
Physician Documentation [facility] Name: Alberto Lynn Age: 33 yrs Sex: Male : 1990 Arrival Date: 04/27/2023 Time: 09:53 Bed 15 Private MD: ED Physician Rajani Trejo HPI: 04/26 09:58 This 33 yrs old Male presents to ER via Unassigned with complaints of Body Cramps. sb4 10:08 Patient presents with full body cramps that began last night and have persisted till sb4 this morning. This does happen to him frequently, and he seeks care at the emergency department. He denies any other symptoms, he has not taken any medication for the pain. He has no other associated signs and symptoms. Historical: - Allergies: :59 No Known Allergies; hb - Home Meds: :59 None [Active]; hb - PMHx: 09:59 diabetes mellitus; hb - PSHx: 09:59 leg FX; hb - Immunization history:: Adult Immunizations up to date. - Social history:: Smoking status: Patient denies any tobacco usage or history of. ROS: 10:08 Cardiovascular: Negative for chest pain, palpitations, and edema, sb4 10:08 Constitutional: Positive for body aches, 10:08 All other systems are negative, Exam: 10:08 Constitutional: This is a well developed, well nourished patient who is awake, alert, sb4 and in no acute distress. Head/Face: Normocephalic, atraumatic. Eyes: Extra-ocular motions intact. Periorbital areas with no swelling, redness, or edema. ENT: Mucous membranes moist. Cardiovascular: Regular rate and rhythm with a normal S1 and S2. Respiratory: Lungs have equal breath sounds bilaterally, clear to auscultation and percussion. No rales, rhonchi or wheezes noted. No increased work of breathing, no retractions or nasal flaring. Abdomen/GI: Soft, non-tender, no distension. Skin: Warm, dry with normal turgor. Normal color with no rashes, no lesions, and no evidence of cellulitis. MS/ Extremity: Pulses equal, no cyanosis. Neurovascular intact. Full, normal range of motion. Neuro: Awake and alert, GCS 15, oriented to person, place, time, and situation. Motor strength 5/5 in all extremities. Sensory grossly intact. 10:08 Special observations: no evidence of discomfort, the patient smiles, Vital Signs: 09:57 BP 133 / 93; Pulse 80; Resp 16; Temp 98.3(O); Pulse Ox 97% ; Weight 94.35 kg; Height 5 hb ft. 11 in. ; Pain 10/10; 11:04 BP 128 / 88; Pulse 84; Resp 16; Pulse Ox 99% on R/A; hb 09:57 Body Mass Index 29.01 (94.35 kg, 180.34 cm) hb 09:57 Pain Scale: Adult hb MDM: 09:54 Patient medically screened. sb4 10:18 Differential diagnosis: Hypokalemia, dehydration, rhabdo, hyperglycemia. sb4 10:44 ED course: mild elevation in CK. administered 2L of fluid. patient reports improvement sb4 in symptoms. will dc home. 10:48 Data reviewed: vital signs, nurses notes, lab test result(s), radiologic studies, and sb4 as a result, I will discharge patient. Counseling: I had a detailed discussion with the patient and/or guardian regarding the historical points, exam findings, and any diagnostic results supporting the discharge/admit diagnosis, the presence of at least one elevated blood pressure reading (>120/80) during this emergency department visit, lab results, to return to the emergency department if symptoms worsen or persist or if there are any questions or concerns that arise at home. 04/26 09:58 Order name: CBC w/o diff; Complete Time: 10:20 sb4 04/26 09:58 Order name: BMP; Complete Time: 10:33 sb4 04/26 09:58 Order name: Magnesium; Complete Time: 10:33 sb4 04/26 09:58 Order name: CK; Complete Time: 10:33 sb4 04/26 09:58 Order name: IV Start; Complete Time: 10:06 sb4 Administered Medications: 10:10 Drug: NS 0.9% IV 1000 ml IV at 1 bolus Per protocol; 1000 mL bolus Route: IV; Rate: 1 hb bolus; Site: right antecubital; 10:50 Follow up: Response: No adverse reaction; IV Status: Completed infusion; IV Intake: hb 1000ml 10:10 Drug: Ketorolac IVP 30 mg IVP once Route: IVP; Site: right antecubital; hb 10:40 Follow up: Response: No adverse reaction hb 10:10 Drug: Cyclobenzaprine PO 10 mg PO once Route: PO; hb 11:04 Follow up: Response: No adverse reaction hb 10:34 Drug: NS 0.9% IV 1000 ml IV at 1 bolus Per protocol; 1000 mL bolus Route: IV; Rate: 1 hb bolus; Site: right antecubital; 11:04 Follow up: Response: No adverse reaction; IV Status: Completed infusion; IV Intake: hb 1000ml Disposition Summary: 04/27/23 10:49 Discharge Ordered Notes: Location: Home sb4 Problem: new sb4 Symptoms: have improved sb4 Condition: Stable sb4 Diagnosis - Myalgia sb4 Followup: sb4 - With: Emergency Department - When: As needed - Reason: Trouble breathing, Worsening of condition Discharge Instructions: - Discharge Summary Sheet sb4 - Muscle Pain, Adult sb4 Forms: - Thank You Letter sb4 - Patient Portal Instructions sb4 - Leadership Thank You Letter sb4 Signatures: Dispatcher [employer] Emerald Rm, RN RN Keke Dudley PABib PABib sb4
[2023-04-27 11:38] VITALS: BP 133/93; TEMP 98.3; O2SAT 97
== END ==
LOC: ER 09:53
DX: M79.10 Myalgia, unspecified site (principal)
CPT/HCPCS: 36415; 80048; 82550; 83735; 85027; 96361; 96374; 99285; J7030

== ENCOUNTER 2024-10-27 23:12 | Emergency (ER) | payer SELFPAY ==
[2024-10-28 00:43] LABS: Urine Microscopic Reflex YN NO UMIC
[2024-10-28 00:47] LABS: Absolute Lymphocytes (CBC) 0.8 K/uL (0.7-4.9); Hematocrit 44.8 % (39.6-49.0); Hemoglobin 15.2 g/dL (13.6-17.9); MCH 31.2 pg (27.0-35.0); MCHC 34.0 g/dL (32.0-36.0); MCV 91.8 fL (80-100); MPV 9.0 fL (7.6-11.3); Nucleated RBC Absolute Count 0.0 (0-0); Nucleated Red Blood Cells % 0.5 % (0-0); RBC Red Blood Cell Count 4.88 M/uL (4.33-5.43); White Blood Count 6.20 thou/uL (4.3-10.9)
[2024-10-28 01:04] LABS: ALT/SGPT 24 U/L (16-61); AST/SGOT 19 U/L (15-37); Albumin 4.3 g/dL (3.4-5.0); Albumin/Globulin Ratio 1.1 (1.1-1.8); Alkaline Phosphatase 91 U/L (45-117); Anion Gap 7.6 mEq/L (5.0-15.0); BUN Blood Urea Nitrogen 13 mg/dL (7-18); Globulin 4.0 g/dL (2.3-3.5); Glucose Level 96 mg/dL (74-106); Magnesium 2.3 mg/dL (1.6-2.4); Potassium 4.6 mEq/L (3.5-5.1); Troponin High Sensitivity 6.2 pg/mL (<58.9)
[2024-10-28 01:17] LABS: Bilirubin Indirect, Calculated 0.2 mg/dL (0.2-0.8)
[2024-10-28] MEDS ORDERED: NA CHLORIDE 0.9% 1,000 ML ONE (01:17)
[2024-10-28 01:18] LABS: METHAMPHETAM NEGATIVE (NEGATIVE); THC Cannibis NEGATIVE (NEGATIVE)
[2024-10-28] MEDS ORDERED: ACETAMINOPHEN 500 MG TAB ONE (02:18)
[2024-10-28] MEDS ORDERED: KETOROLAC 30 MG/ML INJ ONE (02:18)
--- NOTE | 2024-10-28 02:35 | ER ---
Nurse's Notes [facility] Name: Alberto Lynn Age: 34 yrs Sex: Male : 1990 Arrival Date: 10/27/2024 Time: 23:12 Bed DX1 Private MD: Diagnosis: Cramp and spasm-generalized Presentation: 10/27 23:40 Chief complaint: Patient states: I feel like I am dehydrated, having muscle spasm \T\ leg rg5 cramps since this morning. Coronavirus screen: Client denies travel out of the [place] in the last 14 days. Ebola Screen: Patient negative for fever greater than or equal to 101.5 degrees Fahrenheit, and additional compatible Ebola Virus Disease symptoms Patient denies exposure to infectious person. Patient denies travel to an Ebola-affected area in the 21 days before illness onset. Initial Sepsis Screen: Does the patient meet any 2 criteria? No. Patient's initial sepsis screen is negative. Does the patient have a suspected source of infection? No. Patient's initial sepsis screen is negative. Risk Assessment: Do you want to hurt yourself or someone else? Patient reports no desire to harm self or others. Onset of symptoms was October 27, 2024. 23:40 Method Of Arrival: Ambulatory rg5 23:40 Acuity: ZAHIDA 3 rg5 Triage Assessment: 23:43 General: Appears in no apparent distress. Behavior is calm, cooperative, appropriate rg5 for age. Pain: Denies pain. EENT: No deficits noted. Neuro: Level of Consciousness is awake, alert, obeys commands, Oriented to person, place, time, situation. Cardiovascular: Denies chest pain, Patient's skin is warm and dry. Respiratory: Airway is patent Trachea midline Respiratory effort is even, unlabored. GI: Abdomen is flat, non-distended, Reports cramping. : No signs and/or symptoms were reported regarding the genitourinary system. Derm: Skin is intact, Skin is dry, Skin is normal. Musculoskeletal: Circulation, motion, and sensation intact. Range of motion: intact in all extremities. Historical: - Allergies: 23:43 No Known Allergies; rg5 - Immunization history:: Adult Immunizations not up to date. - Infectious Disease History:: Denies. - Social history:: Smoking status: Patient denies any tobacco usage or history of. Screenin/18 01:15 [facility] ED Fall Risk Assessment (Adult) History of falling in the last 3 months, jj7 including since admission No falls in past 3 months (0 pts) Confusion or Disorientation No (0 pts) Intoxicated or Sedated No (0 pts) Impaired Gait No (0 pts) Mobility Assist Device Used No (0 pt) Altered Elimination No (0 pt) Score/Fall Risk Level 0 - 2 = Low Risk Oriented to surroundings, Maintained a safe environment, Educated pt \T\ family on fall prevention, incl call for assistance when getting out of bed, Assessed \T\ reinforced patient's understanding of fall precautions. Abuse screen: Denies threats or abuse. Nutritional screening: No deficits noted. Tuberculosis screening: No symptoms or risk factors identified. Assessment: 01:15 Reassessment: ASSUMED CARE OF PT. General: Appears in no apparent distress. jj7 comfortable, Behavior is calm, cooperative, appropriate for age. Pain: Denies pain. Neuro: Level of Consciousness is awake, alert, obeys commands, Oriented to person, place, time, situation, Appropriate for age. Cardiovascular: No deficits noted. Denies chest pain, fatigue, lightheadedness, shortness of breath. Respiratory: No deficits noted. Denies shortness of breath. Musculoskeletal: Reports MUSCLE SPASMS FROM WALKING IN THE HEAT DAILY. Denies PAIN. 02:00 Reassessment: Patient and/or family updated on plan of care and expected duration. Pain jj7 level reassessed. Patient is alert, oriented x 3, equal unlabored respirations, skin warm/dry/pink. Vital Signs: 10/27 23:40 BP 145 / 94; Pulse 74; Resp 17; Temp 98.3; Pulse Ox 100% ; Weight 97.52 kg; Height 5 rg5 ft. 11 in. ; Pain 0/10; 10/28 01:30 BP 139 / 89; Pulse 68; Resp 20; Pulse Ox 97% ; jj7 02:30 BP 140 / 81; Pulse 64; Resp 20; Temp 97.8; Pulse Ox 99% ; Pain 0/10; jj7 10/27 23:40 Body Mass Index 29.99 (97.52 kg, 180.34 cm) rg5 10/27 23:40 Pain Scale: Adult rg5 02:30 Pain Scale: Adult jj7 ED Course: 10/27 23:14 Patient arrived in ED. mr 23:23 [facility] cp 23:23 Curtis Caban MD is Attending Physician. cp 23:43 Triage completed. rg5 23:43 Arm band placed on left wrist. rg5 10/28 00:34 Basic Metabolic Panel Sent. vk 00:34 CBC with Diff Sent. vk 00:34 LFT's Sent. vk 00:34 Magnesium Sent. vk 00:34 Troponin HS Sent. vk 00:34 UDS Sent. vk 00:34 UA Rfx Ferain Cult if indicated Sent. vk 00:35 CK Sent. vk 00:35 Initial lab(s) drawn, by in, sent to lab. Urine collected: clean catch specimen, clear. vk Inserted saline lock: 20 gauge in left antecubital area, using aseptic technique. Blood collected. Flushed with 10 mL NS. 00:57 EKG done, by ED staff, reviewed by Curtis Quintanilla PA-C. vk 01:15 Patient has correct armband on for positive identification. jj7 01:37 XRAY Chest (1 view) In Process Unspecified. EDMS 02:55 No provider procedures requiring assistance completed. IV discontinued, intact, jj7 bleeding controlled, No redness/swelling at site. Pressure dressing applied. Administered Medications: 01:20 Drug: NS 0.9% IV 1000 ml IV at 1 bolus Per protocol; to be given as a bolus over 60 jj7 minutes Route: IV; Rate: 1 bolus; Site: left antecubital; 02:23 Follow up: IV Status: Completed infusion jj7 02:23 Drug: Ketorolac IVP 15 mg IVP once Route: IVP; Site: left antecubital; jj7 02:56 Follow up: Response: Marked relief of symptoms jj7 02:23 Drug: Acetaminophen PO 1000 mg PO once Route: PO; jj7 02:56 Follow up: Response: Marked relief of symptoms jj7 Medication: 01:15 VIS not applicable for this client. jj7 Outcome: 02:34 Discharge ordered by . cp 02:55 Discharged to home ambulatory, jj7 02:55 Condition: improved 02:55 Discharge instructions given to patient, Instructed on discharge instructions, medication usage, Demonstrated understanding of instructions, medications, Prescriptions given X 2, 02:56 Patient left the ED. jj7 Signatures: Dispatcher [employer] EDMS Aydee France, Reg Reg mr Curtis Quintanilla, Jeff Andrade PA-C, cp RN RN jj7 Joie Holt Rommel RN RN rg5 Corrections: (The following items were deleted from the chart) 02:54 01:15 BP 139 / 89; Pulse 68bpm; Resp 20bpm; Pulse Ox 97%; jj7 jj7
--- NOTE | 2024-10-28 02:35 | EDPHYS ---
Physician Documentation [facility] Name: Alberto Lynn Age: 34 yrs Sex: Male : 1990 Arrival Date: 10/27/2024 Time: 23:12 Bed DX1 Private MD: ED Physician Curtis Caban HPI: 10/28 00:50 This 34 yrs old Male presents to ER via Ambulatory with complaints of Dehydration. cp 00:50 Patient is a 34-year-old male with no significant past medical history presents to emergency department with complaints of generalized cramping and muscle spasms. Patient is concerned he is dehydrated. Patient admits he is homeless and throughout today has been doing a lot of walking. Patient denies any fever, denies chest pain and/or abdominal pain. No vomiting and/or diarrhea. Historical: - Allergies: 10/27 23:43 No Known Allergies; rg5 - Immunization history:: Adult Immunizations not up to date. - Infectious Disease History:: Denies. - Social history:: Smoking status: Patient denies any tobacco usage or history of. ROS: 10/28 00:55 Constitutional: Positive for body aches, generalized muscle aches and muscle spasms, cp Negative for chills, fever, 00:55 Eyes: Negative for injury, pain, redness, and discharge, cp 00:55 ENT: Negative for ear pain, sore throat, difficulty swallowing, difficulty handling secretions, 00:55 Cardiovascular: Negative for chest pain, palpitations, 00:55 Respiratory: Negative for cough, shortness of breath, wheezing, 00:55 Abdomen/GI: Negative for abdominal pain, vomiting, diarrhea, constipation, 00:55 Neuro: Negative for altered mental status, dizziness, headache, weakness, 00:55 All other systems are negative, Exam: 01:00 Constitutional: The patient appears in no acute distress, alert, awake, cp non-diaphoretic, non-toxic, well developed, well nourished, 01:00 Head/Face: Normocephalic, atraumatic. cp 01:00 Eyes: Periorbital structures: appear normal, Conjunctiva: normal, no exudate, no injection, Sclera: no appreciated abnormality, Lids and lashes: appear normal, bilaterally, 01:00 ENT: External ear(s): are unremarkable, Nose: is normal, Mouth: is normal, Posterior pharynx: Airway: no evidence of obstruction, patent, 01:00 Neck: ROM/movement: is normal, is supple, without pain, no range of motions limitations, no nuchal rigidity, 01:00 Chest/axilla: Inspection: normal, 01:00 Cardiovascular: Rate: normal, Rhythm: regular, Edema: is not appreciated, JVD: is not appreciated, 01:00 Respiratory: the patient does not display signs of respiratory distress, Respirations: normal, no use of accessory muscles, no retractions, labored breathing, is not present, Breath sounds: are clear throughout, no decreased breath sounds, no stridor, no wheezing, 01:00 Abdomen/GI: Inspection: abdomen appears normal, Palpation: abdomen is soft and non-tender, in all quadrants, :00 Back: CVA tenderness, is absent, :00 Skin: cellulitis, is not appreciated, no rash present. 01:00 Neuro: Orientation: to person, place \T\ time. Mentation: is normal, Cerebellar function: is grossly normal, Motor: moves all fours, strength is normal, Sensation: is normal, 01:03 ECG was reviewed by the Attending Physician. Vital Signs: 10/27 23:40 BP 145 / 94; Pulse 74; Resp 17; Temp 98.3; Pulse Ox 100% ; Weight 97.52 kg; Height 5 rg5 ft. 11 in. ; Pain 0/10; 10/28 01:30 BP 139 / 89; Pulse 68; Resp 20; Pulse Ox 97% ; jj7 02:30 BP 140 / 81; Pulse 64; Resp 20; Temp 97.8; Pulse Ox 99% ; Pain 0/10; jj7 10/27 23:40 Body Mass Index 29.99 (97.52 kg, 180.34 cm) rg5 10/27 23:40 Pain Scale: Adult rg5 02:30 Pain Scale: Adult jj7 MDM: 10/27 23:42 Medical Screening Exam initiated 10/28 00:00 Differential diagnosis: dehydration, cardiac arrhythmia, electrolyte abnormality, cp rhabdomyolysis. 02:33 Data reviewed: vital signs, nurses notes, lab test result(s), EKG, and as a result, I will discharge patient. 02:33 I considered the following discharge prescriptions or medication management in the emergency department Medications were administered in the Emergency Department. See MAR. Counseling: I had a detailed discussion with the patient and/or guardian regarding the historical points, exam findings, and any diagnostic results supporting the discharge/admit diagnosis, lab results, to return to the emergency department if symptoms worsen or persist or if there are any questions or concerns that arise at home. Response to treatment: the patient's symptoms have mildly improved after treatment, and as a result, I will discharge patient. 10/27 23:59 Order name: Basic Metabolic Panel; Complete Time: 01:48 cp 10/28 01:48 Interpretation: Normal except: CL 108; GFR 82. 10/27 23:59 Order name: CBC with Diff; Complete Time: 00:52 cp 10/28 00:52 Interpretation: Normal except: ANNE% 81.2; LYM% 13.3. 10/27 23:59 Order name: LFT's; Complete Time: 01:48 cp 18 02:29 Interpretation: Normal except: TP 8.3; GLOB 4.0. 10/27 23:59 Order name: Magnesium; Complete Time: 01:48 cp 10/27 23:59 Order name: Troponin HS; Complete Time: 01:48 cp 10/27 23:59 Order name: CK; Complete Time: 01:48 cp 10/27 23:59 Order name: UA Rfx Efrain Cult if indicated; Complete Time: 00:52 cp 10/27 23:59 Order name: UDS; Complete Time: 01:48 cp 10/27 23:59 Order name: XRAY Chest (1 view) 10/27 23:59 Order name: EKG - Nurse/Tech; Complete Time: 00:57 cp 10/27 23:59 Order name: IV Saline Lock; Complete Time: 00:34 cp 10/27 23:59 Order name: Labs collected and sent; Complete Time: 00:34 cp 18 01:49 Order name: PO challenge; Complete Time: 02:23 cp EC:03 Rate is 67 beats/min. Rhythm is regular. NM interval is normal. QRS interval is normal. cp QT interval is normal. T waves are Inverted in leads III, aVR. Interpreted by me. Reviewed by me. Administered Medications: 01:20 Drug: NS 0.9% IV 1000 ml IV at 1 bolus Per protocol; to be given as a bolus over 60 jj7 minutes Route: IV; Rate: 1 bolus; Site: left antecubital; 02:23 Follow up: IV Status: Completed infusion j 02:23 Drug: Ketorolac IVP 15 mg IVP once Route: IVP; Site: left antecubital; jj7 02:56 Follow up: Response: Marked relief of symptoms jj7 02:23 Drug: Acetaminophen PO 1000 mg PO once Route: PO; j7 02:56 Follow up: Response: Marked relief of symptoms jj7 Disposition Summary: 10/28/24 02:34 Discharge Ordered Notes: Location: Home cp Problem: new cp Symptoms: have improved cp Condition: Stable cp Diagnosis - Cramp and spasm - generalized cp Followup: cp - With: Private Physician - When: 2 - 3 days - Reason: Worsening of condition Discharge Instructions: - Discharge Summary Sheet cp - Dehydration, Adult cp - Leg Cramps cp - Muscle Cramps and Spasms cp - Rehydration, Adult cp Forms: - Medication Reconciliation Form cp - Antibiotic Education cp - Prescription Opioid Use cp - Patient Portal Instructions cp - Leadership Thank You Letter cp Prescriptions: - Ibuprofen 800 mg Oral Tablet - take 1 tablet ORAL route every 8 hours As needed take with food; 30 tablet; cp Refills: 0, Product Selection Permitted - Cyclobenzaprine 10 mg Oral tablet - take 1 tablet ORAL route every 8 hours As needed; 20 tablet; Refills: 0, cp Product Selection Permitted Addendum: 11/01/2024 11:41 Co-signature as Attending Physician, Curtis Caban MD I agree with the assessment and c de plan of care. Signatures: Dispatcher [employer] Curtis Castelan MD MD cha Page, Corey, PA-C PA-C Jeff Zuniga RN RN jj7 Luiz Guy RN RN rg5 Corrections: (The following items were deleted from the chart) 10/28 00:01 00:01 BASIC METABOLIC PANEL+C.LAB.BRZ ordered. EDMS EDMS 00:01 00:01 CBC+H.LAB.BRZ ordered. EDMS EDMS 00:01 00:01 HEPATIC FUNCTION+C.LAB.BRZ ordered. EDMS EDMS 00:01 00:01 MAGNESIUM+C.LAB.BRZ ordered. EDMS EDMS 00:01 00:01 Troponin High Sensitivity+C.LAB.BRZ ordered. EDMS EDMS 00:01 00:01 CREATINE PHOSPHOKINASE+C.LAB.BRZ ordered. EDMS EDMS 00:01 00:01 UA Rfx Efrain Cult if indicated+U.LAB.BRZ ordered. EDMS EDMS 00:01 00:01 URINE DRUG SCREEN+UC.LAB.BRZ ordered. EDMS EDMS
--- NOTE | 2024-10-28 02:50 | RAD REPORT ---
EXAM: XR Chest, 1 View CLINICAL HISTORY: PAIN TECHNIQUE: Frontal view of the chest. COMPARISON: No relevant prior studies available. FINDINGS: Lungs: Unremarkable. No consolidation. Pleural space: Unremarkable. No pneumothorax. Heart: Unremarkable. No cardiomegaly. Mediastinum: Unremarkable. Normal mediastinal contour. Bones/joints: Unremarkable. No acute fracture. IMPRESSION: No acute disease. Electronically signed by: Elena Padilla MD 10/28/2024 02:46 AM CDT RP Due to temporary technical issues with the PACS/[employer] reporting system, reports are being dawood d by the in-house radiologist without review as a courtesy to ensure prompt reporting the interpreting radiologist is fully responsible for the content of the report. Transcribed Date/Time: 10/28/2024 2:50 AM
[2024-10-28 03:34] VITALS: BP 140/81; TEMP 97.8; O2SAT 99
== END 2024-10-28 02:56 | disposition home or self-care (01) ==
LOC: ER 23:12
DX: R25.2 Cramp and spasm (principal); Z59.00 Homelessness unspecified
CPT/HCPCS: 36415; 71045; 80048; 80076; 80307; 81003; 82550; 83735; 84484; 85025; 93005; 96361; 96374; 99284; J7030